=== PATIENT | female | born 1955 | race Asian ===

== ENCOUNTER 2017-09-09 14:57 | Emergency (ER) | payer SELFPAY ==
--- NOTE | 2017-09-09 16:07 | ER ---
Nurse's Notes [facility] Name: Erica Marrero Age: 61 yrs Sex: Female : 1955 Arrival Date: 09/09/2017 Time: 15:00 Bed 25 Private MD: Diagnosis: Hyperglycemia, unspecified Presentation: 09/09 15:21 Presenting complaint: Patient states: "My sugar was 413 at home. I didn't have any aj needles for my insulin so I came up to the ER." Patient is awake and alert. Transition of care: patient was not received from another setting of care. Onset of symptoms was September 09, 2017. Risk Assessment: Do you want to hurt yourself or someone else? Patient reports no desire to harm self or others. Care prior to arrival: None. 15:21 Method Of Arrival: Ambulatory aj 15:21 Acuity: JAYLON 3 aj 16:35 Initial Sepsis Screen: Does the patient meet any 2 criteria? No. Patient's initial aj1 sepsis screen is negative. Does the patient have a suspected source of infection? No. Patient's initial sepsis screen is negative. Triage Assessment: 15:24 General: Appears in no apparent distress. comfortable, Behavior is calm, cooperative, aj appropriate for age. Pain: Denies pain. Neuro: Level of Consciousness is awake, alert, obeys commands, Oriented to person, place, time, situation, Appropriate for age. Respiratory: Airway is patent Respiratory effort is even, unlabored, Respiratory pattern is regular, symmetrical. Derm: Skin is intact, is healthy with good turgor, Skin is pink, warm \\T\\ dry. normal. Historical: - Allergies: 15:24 Dairy; aj 15:24 Eggs; aj 15:24 Iodine; aj 15:24 PORK/PORCINE PRODUCT DERIVATIVES; aj 15:24 rice; aj 15:24 SEAFOOD; aj - Home Meds: 15:24 glipizide 5 mg Oral tab 1 tab once daily [Active]; Glipizide 5mg BID, Metformin 1000mg aj BID, Levothyroxine 50mcg Daily, Simvastatin 40mg QHS, Bactrim DS [Active]; levothyroxine 100 mcg tab 1 tab once daily [Active]; metformin 1,000 mg Oral tr24 1 tab once daily [Active]; levothyroxine oral [Active]; metformin 1,000 mg Oral tr24 2 tabs once daily [Active]; simvastatin 40 mg Oral tab 0.5 tab 2 times per day [Active]; Prozac Oral [Active]; Unknown bipolar med [Active]; - PMHx: 15:24 Bipolar disorder; COPD; Depression; Diabetes - NIDDM; High Cholesterol; Thyroid aj problem; Insulin; - PSHx: 15:24 Hysterectomy; Tubal ligation; aj - Immunization history:: Adult Immunizations up to date. - Social history:: Smoking status: Patient/guardian denies using tobacco. - Ebola Screening: : Patient negative for fever greater than or equal to 101.5 degrees Fahrenheit, and additional compatible Ebola Virus Disease symptoms Patient denies exposure to infectious person Patient denies travel to an Ebola-affected area in the 21 days before illness onset No symptoms or risks identified at this time. Screenin:33 Abuse screen: Denies threats or abuse. Denies injuries from another. Nutritional aj1 screening: No deficits noted. Tuberculosis screening: No symptoms or risk factors identified. 16:36 Fall Risk None identified. aj1 Assessment: 16:33 General: Appears in no apparent distress. comfortable, Behavior is calm, cooperative, aj1 appropriate for age. Pain: Denies pain. Neuro: Level of Consciousness is awake, alert, obeys commands, Oriented to person, place, time, situation. Cardiovascular: Patient's skin is warm and dry. Respiratory: Airway is patent Respiratory effort is even, unlabored, Respiratory pattern is regular, symmetrical. GI: No signs and/or symptoms were reported involving the gastrointestinal system. : No signs and/or symptoms were reported regarding the genitourinary system. EENT: No signs and/or symptoms were reported regarding the EENT system. Derm: No signs and/or symptoms reported regarding the dermatologic system. Skin is pink, warm \\T\\ dry. normal. Musculoskeletal: No signs and/or symptoms reported regarding the musculoskeletal system. Circulation, motion, and sensation intact. Vital Signs: 15:24 BP 127 / 80; Pulse 92; Resp 18; Temp 97.6; Pulse Ox 98% on R/A; Weight 72.57 kg; Height aj 5 ft. 3 in. (160.02 cm); 16:33 BP 122 / 75; Pulse 88; Resp 18; Pulse Ox 99% ; aj1 15:24 Body Mass Index 28.34 (72.57 kg, 160.02 cm) aj ED Course: 15:00 Patient arrived in ED. sb2 15:23 Triage completed. aj 15:24 Arm band placed on left wrist. Patient placed in waiting room, Patient notified of wait aj time. 16:03 Momo Ayala MD is Attending Physician. 16:33 Rocio Montes, RN is Primary Nurse. aj1 16:33 Patient has correct armband on for positive identification. Bed in low position. Call aj1 light in reach. Side rails up X 1. 16:33 No provider procedures requiring assistance completed. Patient did not have IV access aj1 during this emergency room visit. Administered Medications: No medications were administered Point of Care Testing: Blood Glucose: 15:24 Blood Glucose: 315 mg/dL; aj Ranges: Outcome: 16:07 Discharge ordered by . 16:33 Discharged to home ambulatory. aj1 16:33 Condition: good 16:33 Discharge instructions given to patient, Instructed on discharge instructions, follow up and referral plans. medication usage, Demonstrated understanding of instructions, follow-up care, medications, Prescriptions given X 1. 16:36 Patient left the ED. aj1 Signatures: Rocio Montes, RN RN aj1 Neris Betancur RN RN aj Momo Ayala MD MD Nanci Villa sb2
--- NOTE | 2017-09-09 16:07 | EDPHYS ---
Physician Documentation [facility] Name: Erica Marrero Age: 61 yrs Sex: Female : 1955 Arrival Date: 09/09/2017 Time: 15:00 Bed 25 Private MD: ED Physician Momo Ayala HPI: 09/09 16:26 This 61 yrs old Female presents to ER via Ambulatory with complaints of High gs Blood Sugar. 16:26 The patient or guardian reports hyperglycemia. Onset: The symptoms/episode gs began/occurred 1 week(s) ago, and became persistent out of metformin. Associated signs and symptoms: Pertinent negatives: nausea, seizure activity, urinary incontinence, vomiting. Current symptoms: In the emergency department the patient's symptoms have improved, mildly. The patient has experienced similar episodes in the past, several times. Historical: - Allergies: 15:24 Dairy; aj 15:24 Eggs; aj 15:24 Iodine; aj 15:24 PORK/PORCINE PR[employer] DERIVATIVES; aj 15:24 rice; aj 15:24 SEAFOOD; aj - Home Meds: 15:24 glipizide 5 mg Oral tab 1 tab once daily [Active]; Glipizide 5mg BID, Metformin 1000mg aj BID, Levothyroxine 50mcg Daily, Simvastatin 40mg QHS, Bactrim DS [Active]; levothyroxine 100 mcg tab 1 tab once daily [Active]; metformin 1,000 mg Oral tr24 1 tab once daily [Active]; levothyroxine oral [Active]; metformin 1,000 mg Oral tr24 2 tabs once daily [Active]; simvastatin 40 mg Oral tab 0.5 tab 2 times per day [Active]; Prozac Oral [Active]; Unknown bipolar med [Active]; - PMHx: 15:24 Bipolar disorder; COPD; Depression; Diabetes - NIDDM; High Cholesterol; Thyroid aj problem; Insulin; - PSHx: 15:24 Hysterectomy; Tubal ligation; aj - Immunization history:: Adult Immunizations up to date. - Social history:: Smoking status: Patient/guardian denies using tobacco. - Ebola Screening: : Patient negative for fever greater than or equal to 101.5 degrees Fahrenheit, and additional compatible Ebola Virus Disease symptoms Patient denies exposure to infectious person Patient denies travel to an Ebola-affected area in the 21 days before illness onset No symptoms or risks identified at this time. ROS: 16:26 Constitutional: Negative for fever. gs 16:26 Abdomen/GI: Negative for nausea and vomiting, diarrhea. 16:26 All other systems are negative. Exam: 16:26 Head/Face: Normocephalic, atraumatic. Eyes: Pupils equal round and reactive to light, gs extra-ocular motions intact. Lids and lashes normal. Conjunctiva and sclera are non-icteric and not injected. Cornea within normal limits. Periorbital areas with no swelling, redness, or edema. ENT: Nares patent. No nasal discharge, no septal abnormalities noted. Tympanic membranes are normal and external auditory canals are clear. Oropharynx with no redness, swelling, or masses, exudates, or evidence of obstruction, uvula midline. Mucous membranes moist. Neck: Trachea midline, no thyromegaly or masses palpated, and no cervical lymphadenopathy. Supple, full range of motion without nuchal rigidity, or vertebral point tenderness. No Meningismus. Chest/axilla: Normal chest wall appearance and motion. Nontender with no deformity. No lesions are appreciated. Cardiovascular: Regular rate and rhythm with a normal S1 and S2. No gallops, murmurs, or rubs. Normal PMI, no JVD. No pulse deficits. Respiratory: Lungs have equal breath sounds bilaterally, clear to auscultation and percussion. No rales, rhonchi or wheezes noted. No increased work of breathing, no retractions or nasal flaring. Abdomen/GI: Soft, non-tender, with normal bowel sounds. No distension or tympany. No guarding or rebound. No evidence of tenderness throughout. Back: No spinal tenderness. No costovertebral tenderness. Full range of motion. Skin: Warm, dry with normal turgor. Normal color with no rashes, no lesions, and no evidence of cellulitis. MS/ Extremity: Pulses equal, no cyanosis. Neurovascular intact. Full, normal range of motion. Neuro: Awake and alert, GCS 15, oriented to person, place, time, and situation. Cranial nerves II-XII grossly intact. Motor strength 5/5 in all extremities. Sensory grossly intact. Cerebellar exam normal. Normal gait. 16:26 Constitutional: The patient appears alert, awake. Vital Signs: 15:24 BP 127 / 80; Pulse 92; Resp 18; Temp 97.6; Pulse Ox 98% on R/A; Weight 72.57 kg; Height aj 5 ft. 3 in. (160.02 cm); 16:33 BP 122 / 75; Pulse 88; Resp 18; Pulse Ox 99% ; aj1 15:24 Body Mass Index 28.34 (72.57 kg, 160.02 cm) aj MDM: 16:06 Patient medically screened. 16:26 Data reviewed: vital signs, nurses notes. Response to treatment: the patient's symptoms gs have mildly improved after treatment, and as a result, I will discharge patient. Administered Medications: No medications were administered Point of Care Testing: Blood Glucose: 15:24 Blood Glucose: 315 mg/dL; aj Ranges: Critical Glucose Levels:Adult <50 mg/dl or >400 mg/dl <40 mg/dl or >180 mg/dl Disposition: 09/09/17 16:07 Discharged to Home. Impression: Hyperglycemia, unspecified. - Condition is Stable. - Discharge Instructions: Hyperglycemia. - Prescriptions for Metformin 1,000 mg Oral Tablet - take 1 tablet by ORAL route every 12 hours with morning and evening meals; 60 tablet. - Medication Reconciliation Form, Thank You Letter, Antibiotic Education, Prescription Opioid Use form. - Follow up: Private Physician; When: 2 - 3 days; Reason: Re-evaluation by your physician. Signatures: Rocio Montes RN RN aj1 Neris Betancur RN RN aj Momo Ayala MD MD Corrections: (The following items were deleted from the chart) 16:36 16:07 09/09/2017 16:07 Discharged to Home. Impression: Hyperglycemia, unspecified. aj1 Condition is Stable. Forms are Medication Reconciliation Form, Thank You Letter, Antibiotic Education, Prescription Opioid Use. Follow up: Private Physician; When: 2 - 3 days; Reason: Re-evaluation by your physician. gs
[2017-09-09 16:41] VITALS: TEMP 97.6
[2017-09-09 16:43] VITALS: BP 122/75; O2SAT 99
== END 2017-09-09 16:36 | disposition home or self-care (01) ==
LOC: ER 14:57
DX: E11.65 Type 2 diabetes mellitus with hyperglycemia (principal); E78.00 Pure hypercholesterolemia, unspecified; F32.9 Major depressive disorder, single episode, unspecified; J44.9 Chronic obstructive pulmonary disease, unspecified; Z79.4 Long term (current) use of insulin; Z91.011 Allergy to milk products; Z91.012 Allergy to eggs; Z91.013 Allergy to seafood; Z91.018 Allergy to other foods
CPT/HCPCS: 82962; 99282

== ENCOUNTER 2017-12-20 21:14 | Emergency (ER) | payer SELFPAY ==
[2017-12-20 21:56] LABS: Absolute Lymphocytes (CBC) 2.4 K/uL (0.7-4.9); Absolute Monocytes 0.5 K/uL (0.1-1.3); Absolute Neutrophil 2.4 K/uL (1.8-8.0); Basophils % 0.6 % (0-1.3); Eosinophils % 2.4 % (0-4.4); Hematocrit 38.6 % (36.0-45.0); Lymphocytes % 44.2 % (15.3-44.8); MCH 32.2 pg (27.0-35.0); MCV 94.5 fL (80-100); MPV 7.8 fL (7.6-11.3); Monocytes % 8.4 % (3.3-12.3); RBC Red Blood Cell Count 4.09 M/uL (3.86-4.86)
[2017-12-20 21:59] LABS: Protime INR 0.88
[2017-12-20 22:17] LABS: ALT/SGPT 20 U/L (12-78); AST/SGOT 17 U/L (15-37); Albumin 4.1 g/dL (3.4-5.0); Alkaline Phosphatase 66 U/L (45-117); BUN Blood Urea Nitrogen 12 mg/dL (7-18); Bicarbonate 28 mmol/L (21-32); Bilirubin Direct 0.1 mg/dL (0-0.2); Bilirubin Total 0.2 mg/dL (0.2-1.0); CKMB Creatine Kinase MB < 1.0 ng/mL (0.3-3.6); Creatine Phosphokinase 43 U/L (26-192); Glucose Level 92 mg/dL (74-106); Magnesium 2.2 mg/dL (1.8-2.4); NT PRO-BNP 59 pg/mL (<125); Potassium 3.9 mmol/L (3.5-5.1); Protein, Total 7.9 g/dL (6.4-8.2); Sodium Level 141 mmol/L (136-145); Troponin (Emerg Dept Use Only) < 0.02 ng/mL (0.0-0.045)
--- NOTE | 2017-12-20 23:07 | RAD REPORT ---
EXAM DESCRIPTION: RAD - Chest Single View - 12/20/2017 9:46 pm CLINICAL HISTORY: CHEST PAIN Chest pain. COMPARISON: Chest Single View dated 04/26/2016; Chest Single View dated 10/14/2015; CHEST SINGLE VIEW d ated 10/14/2014; CHEST SINGLE VIEW dated 08/04/2012 FINDINGS: Portable technique limits examination quality. The lungs are grossly clear. The heart is normal in size. No displaced fractures. IMPRESSION: No acute intrathoracic process suspected.
--- NOTE | 2017-12-21 00:57 | ER ---
Nurse's Notes [facility] Name: Erica Marrero Age: 62 yrs Sex: Female : 1955 Arrival Date: 12/20/2017 Time: 21:15 Bed 18 Private MD: Diagnosis: Chest pain, unspecified Presentation: 12/20 21:42 Presenting complaint: Patient states: "I am having chest pain and a little shortness of jd3 breath. I was seen by my doctor and they said to come to the ER if it keeps hurting.". Transition of care: patient was not received from another setting of care. Onset of symptoms was December 20, 2017. Risk Assessment: Do you want to hurt yourself or someone else? Patient reports no desire to harm self or others. Initial Sepsis Screen: Does the patient meet any 2 criteria? No. Patient's initial sepsis screen is negative. Does the patient have a suspected source of infection? No. Patient's initial sepsis screen is negative. Care prior to arrival: None. 21:42 Method Of Arrival: Wheelchair jd3 21:42 Acuity: JAYLON 3 jd3 Historical: - Allergies: 21:47 Dairy; jd3 21:47 Eggs; jd3 21:47 Iodine; jd3 21:47 PORK/PORCINE PRODUCT DERIVATIVES; jd3 21:47 rice; jd3 21:47 SEAFOOD; jd3 - Home Meds: 21:47 glipizide 5 mg Oral tab 1 tab once daily [Active]; levothyroxine 100 mcg tab 1 tab once jd3 daily [Active]; simvastatin 40 mg Oral tab 0.5 tab 2 times per day [Active]; Prozac Oral [Active]; Unknown bipolar med [Active]; metformin 1,000 mg Oral tr24 2 tabs once daily [Active]; - PMHx: 21:47 Bipolar disorder; COPD; Depression; Diabetes - NIDDM; High Cholesterol; Thyroid problem;jd3 - PSHx: 21:47 Hysterectomy; Tubal ligation; jd3 - Immunization history:: Adult Immunizations not up to date. - Social history:: Smoking status: Patient/guardian denies using tobacco. - Ebola Screening: : Patient negative for fever greater than or equal to 101.5 degrees Fahrenheit, and additional compatible Ebola Virus Disease symptoms. Screenin:49 Abuse screen: Denies threats or abuse. Nutritional screening: No deficits noted. jd3 Tuberculosis screening: No symptoms or risk factors identified. Fall Risk IV access (20 points). Ambulatory Aid- None/Bed Rest/Nurse Assist (0 pts). Gait- Normal/Bed Rest/Wheelchair (0 pts) Mental Status- Oriented to own ability (0 pts). Total Albright Fall Scale indicates No Risk (0-24 pts). Assessment: 21:48 General: Appears in no apparent distress. uncomfortable, Behavior is calm, cooperative, jd3 appropriate for age. Pain: Complains of pain in chest Pain does not radiate. Quality of pain is described as aching, Pain began gradually. Neuro: Level of Consciousness is awake, alert, obeys commands, Oriented to person, place, time, situation, Appropriate for age. Cardiovascular: Heart tones S1 S2 present Capillary refill < 3 seconds Patient's skin is warm and dry. Rhythm is regular. Respiratory: Reports shortness of breath Airway is patent Respiratory effort is even, unlabored, Respiratory pattern is regular, symmetrical, Breath sounds are clear. GI: No signs and/or symptoms were reported involving the gastrointestinal system. : No signs and/or symptoms were reported regarding the genitourinary system. EENT: No signs and/or symptoms were reported regarding the EENT system. Derm: Skin is intact, Skin is dry, Skin is normal, Skin temperature is warm. Musculoskeletal: Circulation, motion, and sensation intact. Range of motion: intact in all extremities. 22:17 Reassessment: Patient appears in no apparent distress at this time. No changes from jd3 previously documented assessment. Patient and/or family updated on plan of care and expected duration. Pain level reassessed. Patient is alert, oriented x 3, equal unlabored respirations, skin warm/dry/pink. 12 00:19 Reassessment: Patient appears in no apparent distress at this time. No changes from jd3 previously documented assessment. Patient and/or family updated on plan of care and expected duration. Pain level reassessed. Patient is alert, oriented x 3, equal unlabored respirations, skin warm/dry/pink. 00:49 Reassessment: Patient appears in no apparent distress at this time. Patient and/or jd3 family updated on plan of care and expected duration. Pain level reassessed. Patient is alert, oriented x 3, equal unlabored respirations, skin warm/dry/pink. 01:29 Reassessment: Patient appears in no apparent distress at this time. Patient and/or jd3 family updated on plan of care and expected duration. Pain level reassessed. Patient is alert, oriented x 3, equal unlabored respirations, skin warm/dry/pink. Vital Signs: 12/20 21:47 BP 116 / 75; Pulse 72; Resp 16 S; Temp 98.0(O); Pulse Ox 95% on R/A; Weight 74.84 kg jd3 (R); Height 5 ft. 4 in. (162.56 cm) (R); Pain 5/10; 22:17 BP 129 / 75; Pulse 63; Resp 16 S; Pulse Ox 97% on R/A; jd3 23:05 BP 113 / 68; Pulse 65; Resp 16; Pulse Ox 97% on R/A; mt 12/21 00:09 BP 123 / 75; Pulse 72; Resp 16; Pulse Ox 99% on R/A; mt 00:49 BP 114 / 69; Pulse 67; Resp 16 S; Pulse Ox 96% on R/A; jd3 12/20 21:47 Body Mass Index 28.32 (74.84 kg, 162.56 cm) jd3 ED Course: 12/20 21:15 Patient arrived in ED. ds1 21:21 [facility] snw 21:21 Guanaco Lindsey MD is Attending Physician. snw 21:28 EKG done, by ED staff, reviewed by Guanaco Lindsey MD. nh 21:34 Inserted saline lock: 20 gauge in right antecubital area, using aseptic technique. nh Blood collected. 21:42 Anthony Anderson, LYSSA is Primary Nurse. jd3 21:43 Triage completed. jd3 21:45 X-ray completed. Portable x-ray completed in exam room. Patient tolerated procedure bb2 well. 21:46 XRAY Chest (1 view) In Process Unspecified. EDMS 21:48 Arm band placed on. jd3 21:50 Patient maintains SpO2 saturation greater than 95% on room air. jd3 21:50 Patient has correct armband on for positive identification. library monitor on. Pulse jd3 ox on. NIBP on. 12/21 01:28 No provider procedures requiring assistance completed. IV discontinued, intact, jd3 bleeding controlled, No redness/swelling at site. Pressure dressing applied. Administered Medications: No medications were administered Outcome: 00:56 Discharge ordered by . blake 01:29 Discharged to home ambulatory, with family. jd3 01:29 Condition: stable 01:29 Discharge instructions given to patient, Instructed on discharge instructions, follow up and referral plans. Demonstrated understanding of instructions, follow-up care. 01:30 Patient left the ED. jd3 Signatures: Dispatcher [employer] EDMA Radha Johnston, BARON-C WEIR FISHER-CsnSherry Branch dsRose Tirado mt, Jonathon, RN RN jd3 [place]app[place], Dayna bb2 Corrections: (The following items were deleted from the chart) 12/20 22:28 21:48 Respiratory: Airway is patent Respiratory effort is even, unlabored, Respiratory jd3 pattern is regular, symmetrical, Breath sounds are clear jd3
--- NOTE | 2017-12-21 00:57 | EDPHYS ---
Physician Documentation [facility] Name: Erica Marrero Age: 62 yrs Sex: Female : 1955 Arrival Date: 12/20/2017 Time: 21:15 Bed 18 Private MD: ED Physician Guanaco Lindsey HPI: 12/20 23:00 This 62 yrs old Female presents to ER via Wheelchair with complaints of Chest snw Tightness, Breathing Difficulty. 23:00 Onset: The symptoms/episode began/occurred gradually, 4 day(s) ago, and became snw persistent. Associated signs and symptoms: Pertinent positives: chest pain, cough, shortness of breath. It is unknown whether or not the patient has had similar symptoms in the past. The patient has been recently seen by a physician: the patient's primary care provider, earlier today, with similar presenting complaints. Historical: - Allergies: 21:47 Dairy; jd3 21:47 Eggs; jd3 21:47 Iodine; jd3 21:47 PORK/[employer] DERIV[employer]IVES; jd3 21:47 rice; jd3 21:47 SEAFOOD; jd3 - Home Meds: 21:47 glipizide 5 mg Oral tab 1 tab once daily [Active]; levothyroxine 100 mcg tab 1 tab once jd3 daily [Active]; simvastatin 40 mg Oral tab 0.5 tab 2 times per day [Active]; Prozac Oral [Active]; Unknown bipolar med [Active]; metformin 1,000 mg Oral tr24 2 tabs once daily [Active]; - PMHx: 21:47 Bipolar disorder; COPD; Depression; Diabetes - NIDDM; High Cholesterol; Thyroid problem;jd3 - PSHx: 21:47 Hysterectomy; Tubal ligation; jd3 - Immunization history:: Adult Immunizations not up to date. - Social history:: Smoking status: Patient/guardian denies using tobacco. - Ebola Screening: : Patient negative for fever greater than or equal to 101.5 degrees Fahrenheit, and additional compatible Ebola Virus Disease symptoms. ROS: 22:59 Constitutional: Negative for fever, chills, and weight loss, Eyes: Negative for injury, snw pain, redness, and discharge, ENT: Negative for injury, pain, and discharge, Neck: Negative for injury, pain, and swelling, Abdomen/GI: Negative for abdominal pain, nausea, vomiting, diarrhea, and constipation, : Negative for injury, bleeding, discharge, and swelling, MS/Extremity: Negative for injury and deformity, Skin: Negative for injury, rash, and discoloration, Neuro: Negative for headache, weakness, numbness, tingling, and seizure. 22:59 Cardiovascular: Positive for chest pain. 22:59 Respiratory: Positive for shortness of breath, with cough. Exam: 22:58 Constitutional: This is a well developed, well nourished patient who is awake, alert, snw and in no acute distress. Head/Face: Normocephalic, atraumatic. Eyes: Pupils equal round and reactive to light, extra-ocular motions intact. Lids and lashes normal. Conjunctiva and sclera are non-icteric and not injected. Cornea within normal limits. Periorbital areas with no swelling, redness, or edema. ENT: Nares patent. No nasal discharge, no septal abnormalities noted. Tympanic membranes are normal and external auditory canals are clear. Oropharynx with no redness, swelling, or masses, exudates, or evidence of obstruction, uvula midline. Mucous membranes moist. Neck: Trachea midline, no thyromegaly or masses palpated, and no cervical lymphadenopathy. Supple, full range of motion without nuchal rigidity, or vertebral point tenderness. No Meningismus. Chest/axilla: Normal chest wall appearance and motion. Nontender with no deformity. No lesions are appreciated. Respiratory: Lungs have equal breath sounds bilaterally, clear to auscultation and percussion. No rales, rhonchi or wheezes noted. No increased work of breathing, no retractions or nasal flaring. Abdomen/GI: Soft, non-tender, with normal bowel sounds. No distension or tympany. No guarding or rebound. No evidence of tenderness throughout. Back: No spinal tenderness. No costovertebral tenderness. Full range of motion. Skin: Warm, dry with normal turgor. Normal color with no rashes, no lesions, and no evidence of cellulitis. MS/ Extremity: Pulses equal, no cyanosis. Neurovascular intact. Full, normal range of motion. Neuro: Awake and alert, GCS 15, oriented to person, place, time, and situation. Cranial nerves II-XII grossly intact. Motor strength 5/5 in all extremities. Sensory grossly intact. Cerebellar exam normal. Normal gait. 22:58 Cardiovascular: Rate: normal, Rhythm: regular, Heart sounds: normal. Vital Signs: 21:47 BP 116 / 75; Pulse 72; Resp 16 S; Temp 98.0(O); Pulse Ox 95% on R/A; Weight 74.84 kg jd3 (R); Height 5 ft. 4 in. (162.56 cm) (R); Pain 5/10; 22:17 BP 129 / 75; Pulse 63; Resp 16 S; Pulse Ox 97% on R/A; jd3 23:05 BP 113 / 68; Pulse 65; Resp 16; Pulse Ox 97% on R/A; mt 12/21 00:09 BP 123 / 75; Pulse 72; Resp 16; Pulse Ox 99% on R/A; mt 00:49 BP 114 / 69; Pulse 67; Resp 16 S; Pulse Ox 96% on R/A; jd3 12/20 21:47 Body Mass Index 28.32 (74.84 kg, 162.56 cm) jd3 MDM: 12/20 21:21 Patient medically screened. snw 12/21 00:57 Data reviewed: vital signs, nurses notes. Data interpreted: Pulse oximetry: on room air snw is 96 %. Interpretation: acceptable. Counseling: I had a detailed discussion with the patient and/or guardian regarding: the historical points, exam findings, and any diagnostic results supporting the discharge/admit diagnosis, lab results, radiology results, the need for outpatient follow up, to return to the emergency department if symptoms worsen or persist or if there are any questions or concerns that arise at home. Special discussion: Based on the patient's history, exam, and Dx evaluation, there is no indication for emergent intervention or inpatient Tx. It is understood by the patient/guardian that if the Sx's persist or worsen they need to return immediately for re-evaluation. Based on the history and exam findings, there is no indication for further emergent testing or inpatient evaluation. I discussed with the patient/guardian the need to see the farrowing manager for further evaluation of the symptoms. I discussed with the patient/guardian the need to see the primary care provider for further evaluation of the symptoms. 12/20 21:28 Order name: Basic Metabolic Panel; Complete Time: 22:37 snw 12/20 21:28 Order name: CBC with Diff; Complete Time: 22:37 snw 09/11 21:28 Order name: Ckmb; Complete Time: 22:37 snw 12/20 21:28 Order name: CPK; Complete Time: :37 w 12/20 21:28 Order name: LFT's; Complete Time: 22:37 12/20 21:28 Order name: Magnesium; Complete Time: 22:37 w 12/20 21:28 Order name: NT PRO-BNP; Complete Time: 22:37 12/20 21:28 Order name: PT-INR; Complete Time: 22:37 12/20 21:28 Order name: Ptt, Activated; Complete Time: :37 w 12/20 21:28 Order name: Troponin (emerg Dept Use Only); Complete Time: :37 w 12/20 21:28 Order name: XRAY Chest (1 view); Complete Time: 23:09 12/20 21:28 Order name: EKG; Complete Time: 21:29 12/20 23:49 Order name: Troponin (emerg Dept Use Only); Complete Time: 00:26 [facility] 12/21 00:34 Order name: EKG; Complete Time: 00:34 w 12/20 21:28 Order name: Cardiac monitoring; Complete Time: 21:29 w 12/20 21:28 Order name: EKG - Nurse/Tech; Complete Time: 21:29 12/20 21:28 Order name: IV Saline Lock; Complete Time: 21:34 w 12/20 21:28 Order name: Labs collected and sent; Complete Time: :34 12/20 21:28 Order name: O2 Per Protocol; Complete Time: 21:29 w 12/20 21:28 Order name: O2 Sat Monitoring; Complete Time: 21:12/20 22:38 Order name: Repeat Cardiac Enzymes at: 1330; Complete Time: 23:49 snw Administered Medications: No medications were administered Disposition: 04:23 Co-signature as Attending Physician, Guanaco Lindsey MD. pkl Disposition: 12/21/17 00:56 Discharged to Home. Impression: Chest pain, unspecified. - Condition is Stable. - Discharge Instructions: Acute Bronchitis, Adult, Nonspecific Chest Pain, Aspirin and Your Heart. - Medication Reconciliation Form, Thank You Letter, Antibiotic Education, Prescription Opioid Use form. - Follow up: Private Physician; When: 1 - 2 days; Reason: Recheck today's complaints, Continuance of care, Re-evaluation by your physician. Follow up: Emergency Department; When: As needed; Reason: Worsening of condition. Signatures: Dispatcher [employer] EDGuanaco Saavedra MD MD pkl Therrien, Shelly, SENIOR CONTROLS TECHNICIAN-C SENIOR CONTROLS TECHNICIAN-Anthony Ramirez RN RN jd3 Corrections: (The following items were deleted from the chart) 01:30 00:56 12/21/2017 00:56 Discharged to Home. Impression: Chest pain, unspecified. jd3 Condition is Stable. Forms are Medication Reconciliation Form, Thank You Letter, Antibiotic Education, Prescription Opioid Use. Follow up: Private Physician; When: 1 - 2 days; Reason: Recheck today's complaints, Continuance of care, Re-evaluation by your physician. Follow up: Emergency Department; When: As needed; Reason: Worsening of condition. snw
[2017-12-21 01:40] VITALS: TEMP 98
[2017-12-21 01:46] VITALS: BP 114/69; O2SAT 96
--- NOTE | 2017-12-21 12:10 | EKG ---
Test Date: 2017-12-21 Test Time: 01:06:35 Brim Buster: SARAH MEASUREMENT RESULTS: Intervals: Rate: 69 NC: 150 QRSD: 80 QT: 418 QTc: 447 [place]: P: 59 NC: 150 QRS: 9 T: 57 INTERPRETIVE STATEMENTS: Normal sinus rhythm Normal ECG Compared to ECG 12/20/2017 21:24:10 No significant changes Electronically Signed On 12-21-17 12:08:36 CDT by Denys Trammell
--- NOTE | 2017-12-21 12:11 | EKG ---
Test Date: 2017-12-20 Test Time: 21:24:10 Prototype Carpenter: DELIA MEASUREMENT RESULTS: Intervals: Rate: 75 CT: 150 QRSD: 78 QT: 358 QTc: 399 Tully: P: 68 CT: 150 QRS: 21 T: 67 INTERPRETIVE STATEMENTS: Normal sinus rhythm Normal ECG Compared to ECG 11/11/2016 09:20:34 T-wave abnormality no longer present Electronically Signed On 12-21-17 12:08:47 CDT by Denys Trammell
== END 2017-12-21 01:30 | disposition home or self-care (01) ==
LOC: ER 21:14
DX: R07.9 Chest pain, unspecified (principal); E11.9 Type 2 diabetes mellitus without complications; E78.00 Pure hypercholesterolemia, unspecified; F31.9 Bipolar disorder, unspecified; F32.9 Major depressive disorder, single episode, unspecified; J44.9 Chronic obstructive pulmonary disease, unspecified; Z91.011 Allergy to milk products; Z91.012 Allergy to eggs; Z91.013 Allergy to seafood; Z91.018 Allergy to other foods; Z91.048 Other nonmedicinal substance allergy status
CPT/HCPCS: 36415; 71045; 80048; 80076; 82550; 82553; 83735; 83880; 84484; 85025; 85610; 85730; 93005; 99285

== ENCOUNTER → 2023-05-15 | Emergency (ER) | payer OTHER ==
--- OUTSIDE RECORDS SUMMARY | 2023-05-15 08:12 | XMS REPORT | Continuity of Care Document ---
Author Name Unknown Address [address] [facility] [address] [place] [address] [facility] Address [address] [place] [address] Care Team Providers Care Unit Technician Name Role Phone [place] [facility], [facility] Primary Care Physician [phone] Kristal Mohan Attending Clinician Unavailable Annetta Green Attending Clinician Unavailab le Payers Payer Name Policy Type Policy Number Effective Date Expirati on Date Source Problems Condition Name Condition Details Condition Category Status Onset Date Resolution Date Last Treatment Date Treating Clinician Comments Source Problem No known problems ASSERTION two.42.s[employer] (Sadi) Allergies, Adverse Reactions, Alerts Allergy Name Allergy Type Status Severity Reaction(s) Onset Date Inactive Date Treating Clinician Comments Source Iodine Strong - Oral Propensi ty to adverse reaction to drug Active 11-12 00:00: 00 Iodine Propensi ty to adverse reaction to drug Active 10-10 00:00: 00 Social History Smoking Status Start Date Stop Date Source Unknown if ever smoked [facility] ([facility]) Medications Ordered Medication Name Filled Medication Name Start Date Stop Date Current Medication? Ordering Clinician Indication Dosage Frequency Signature (SIG) Comments Components Source Take 1 tablet daily 11-18 00:00: 00 No 300 Take 1 daily 11-16 00:00: 00 No 4 TAKE 1 TABLET TWICE DAILY. 11-12 00:00: 00 No 1000 Take 2 tablets by mouth daily 11-12 00:00: 00 No 100 TAKE 1 TABLET EVERY 8 HOURS NEEDED. 11-12 00:00: 00 No 800 TAKE 1 TABLET TWICE DAILY. 11-12 00:00: 00 No 1000 Take 2 tablets by mouth daily 11-12 00:00: 00 No 100 TAKE 1 TABLET EVERY 8 HOURS NEEDED. 11-12 00:00: 00 No 800 metformin 1,000 mg tablet 2017-04 00:00: 00 No 1mg metformin 1,000 mg tablet 2017-04 00:00: 00 No 1mg levofloxaci n 500 mg tablet 2017-04 00:00: 00 No 1mg amoxicillin 500 mg tablet 01-03 00:00: 00 No 1mg amoxicillin 500 mg tablet 01-03 00:00: 00 No 1mg prednisone 10 mg tablet 12-20 00:00: 00 No 1mg ipratropium bromide 0.02 % solution for inhalation 12-20 00:00: 00 No 25% prednisone 10 mg tablet 12-20 00:00: 00 No 1mg ipratropium bromide 0.02 % solution for inhalation 12-20 00:00: 00 No 25% Vitamin D2 50,000 unit capsule 10-26 00:00: 00 No 1unit Vitamin D2 1,250 mcg (50,000 unit) capsule 10-26 00:00: 00 No 1(50,00 0 unit) lisinopril 2.5 mg tablet 10-25 00:00: 00 No 1mg glimepiride 2 mg tablet 10-25 00:00: 00 No 1mg metformin 1,000 mg tablet 10-25 00:00: 00 No 1mg simvastatin 20 mg tablet 10-25 00:00: 00 No 1mg metoclopram zelda 5 mg tablet 10-25 00:00: 00 No 1mg levothyroxi ne 50 mcg tablet 10-25 00:00: 00 No 1mcg lisinopril 2.5 mg tablet 10-25 00:00: 00 No 1mg glimepiride 2 mg tablet 10-25 00:00: 00 No 1mg metformin 1,000 mg tablet 10-25 00:00: 00 No 1mg simvastatin 20 mg tablet 10-25 00:00: 00 No 1mg metoclopram zelda 5 mg tablet 10-25 00:00: 00 No 1mg levothyroxi ne 50 mcg tablet 10-25 00:00: 00 No 1mcg ferrous sulfate 324 mg (65 mg iron) tablet,madonna yed release 10-25 00:00: 00 No 1(65 mg iron) levothyroxi ne 50 mcg tablet 07-12 00:00: 00 No 1mcg glimepiride 2 mg tablet 07-12 00:00: 00 No 1mg lisinopril 2.5 mg tablet 07-12 00:00: 00 No 1mg metformin 1,000 mg tablet 07-12 00:00: 00 No 1mg Bactrim DS 800 mg-160 mg tablet 07-12 00:00: 00 No 1mg simvastatin 20 mg tablet 07-12 00:00: 00 No 1mg ferrous sulfate 324 mg (65 mg iron) tablet,madonna yed release 07-12 00:00: 00 No 1(65 mg iron) levothyroxi ne 50 mcg tablet 07-12 00:00: 00 No 1mcg glimepiride 2 mg tablet 07-12 00:00: 00 No 1mg lisinopril 2.5 mg tablet 07-12 00:00: 00 No 1mg metformin 1,000 mg tablet 07-12 00:00: 00 No 1mg Bactrim DS 800 mg-160 mg tablet 07-12 00:00: 00 No 1mg simvastatin 20 mg tablet 07-12 00:00: 00 No 1mg Novolin R Regular U-100 Insulin 100 unit/mL injection solution 06-10 00:00: 00 No 1unit/m L glipizide 10 mg tablet 06-10 00:00: 00 No 1mg glimepiride 2 mg tablet 06-10 00:00: 00 No 1mg metformin 1,000 mg tablet 06-10 00:00: 00 No 1mg metformin 1,000 mg tablet 06-10 00:00: 00 No 1mg Novolin R Regular U-100 Insulin 100 unit/mL injection solution 06-10 00:00: 00 No 1unit/m L glipizide 10 mg tablet 06-10 00:00: 00 No 1mg glimepiride 2 mg tablet 06-10 00:00: 00 No 1mg metformin 1,000 mg tablet 06-10 00:00: 00 No 1mg metformin 1,000 mg tablet 06-10 00:00: 00 No 1mg lisinopril 2.5 mg tablet 05-13 00:00: 00 No 1mg lisinopril 2.5 mg tablet 05-13 00:00: 00 No 1mg Levemir U-100 Insulin 100 unit/mL subcutaneou s solution 04-15 00:00: 00 No 10unit/ mL glipizide 10 mg tablet 04-15 00:00: 00 No 1mg metformin 1,000 mg tablet 04-15 00:00: 00 No 1mg simvastatin 20 mg tablet 04-15 00:00: 00 No 1mg levothyroxi ne 50 mcg tablet 04-15 00:00: 00 No 1mcg Levemir U-100 Insulin 100 unit/mL subcutaneou s solution 04-15 00:00: 00 No 10unit/ mL glipizide 10 mg tablet 04-15 00:00: 00 No 1mg metformin 1,000 mg tablet 04-15 00:00: 00 No 1mg simvastatin 20 mg tablet 04-15 00:00: 00 No 1mg levothyroxi ne 50 mcg tablet 04-15 00:00: 00 No 1mcg hydroxyzine HCl 25 mg tablet 2016-04 00:00: 00 No 1mg hydroxyzine HCl 25 mg tablet 2016-04 00:00: 00 No 1mg glipizide 10 mg tablet 2016-04 00:00: 00 No 1mg lisinopril 2.5 mg tablet 2016-04 00:00: 00 No 1mg metformin 1,000 mg tablet 2016-04 00:00: 00 No 1mg simvastatin 40 mg tablet 2016-04 00:00: 00 No 1mg levothyroxi ne 50 mcg tablet 2016-04 00:00: 00 No 1mcg glipizide 10 mg tablet 2016-04 00:00: 00 No 1mg lisinopril 2.5 mg tablet 2016-04 00:00: 00 No 1mg metformin 1,000 mg tablet 2016-04 00:00: 00 No 1mg simvastatin 40 mg tablet 2016-04 00:00: 00 No 1mg levothyroxi ne 50 mcg tablet 2016-04 00:00: 00 No 1mcg metformin 1,000 mg tablet 2016-04 00:00: 00 No 1mg metformin 1,000 mg tablet 2016-04 00:00: 00 No 1mg metformin 1,000 mg tablet 2016-04 00:00: 00 No 1mg metformin 1,000 mg tablet 2016-04 00:00: 00 No 1mg prednisone 20 mg tablet 2016-04 00:00: 00 No 1mg amoxicillin 500 mg capsule 2016-04 00:00: 00 No 1mg prednisone 20 mg tablet 2016-04 00:00: 00 No 1mg amoxicillin 500 mg capsule 2016-04 00:00: 00 No 1mg glipizide 5 mg tablet 11-26 00:00: 00 No 1mg metformin 1,000 mg tablet 11-26 00:00: 00 No 1mg simvastatin 40 mg tablet 11-26 00:00: 00 No 1mg fluoxetine 20 mg capsule 11-26 00:00: 00 No 3mg glipizide 5 mg tablet 11-26 00:00: 00 No 1mg metformin 1,000 mg tablet 11-26 00:00: 00 No 1mg simvastatin 40 mg tablet 11-26 00:00: 00 No 1mg fluoxetine 20 mg capsule 11-26 00:00: 00 No 3mg glipizide 5 mg tablet 06-04 00:00: 00 No 1mg metformin 1,000 mg tablet 06-04 00:00: 00 No 1mg simvastatin 40 mg tablet 06-04 00:00: 00 No 1mg fluoxetine 20 mg capsule 06-04 00:00: 00 No 3mg glipizide 5 mg tablet 06-04 00:00: 00 No 1mg metformin 1,000 mg tablet 06-04 00:00: 00 No 1mg simvastatin 40 mg tablet 06-04 00:00: 00 No 1mg fluoxetine 20 mg capsule 06-04 00:00: 00 No 3mg glipizide 5 mg tablet 05-12 00:00: 00 No 1mg metformin 1,000 mg tablet 05-12 00:00: 00 No 1mg simvastatin 40 mg tablet 05-12 00:00: 00 No 1mg glipizide 5 mg tablet 05-12 00:00: 00 No 1mg metformin 1,000 mg tablet 05-12 00:00: 00 No 1mg simvastatin 40 mg tablet 05-12 00:00: 00 No 1mg metformin 1,000 mg tablet 2015-04 00:00: 00 No 1mg glipizide 5 mg tablet 2015-04 00:00: 00 No 1mg simvastatin 40 mg tablet 2015-04 00:00: 00 No 1mg metformin 1,000 mg tablet 2015-04 00:00: 00 No 1mg glipizide 5 mg tablet 2015-04 00:00: 00 No 1mg simvastatin 40 mg tablet 2015-04 00:00: 00 No 1mg metformin 1,000 mg tablet 2015-04 00:00: 00 No 1mg metformin 1,000 mg tablet 2015-04 00:00: 00 No 1mg trazodone 100 mg tablet 2015-04 00:00: 00 No 12mg fluoxetine 20 mg capsule 2015-04 00:00: 00 No 3mg trazodone 100 mg tablet 2015-04 00:00: 00 No 12mg fluoxetine 20 mg capsule 2015-04 00:00: 00 No 3mg metformin 1,000 mg tablet 11-19 00:00: 00 No 1mg glipizide 5 mg tablet 11-19 00:00: 00 No 1mg Bactrim DS 800 mg-160 mg tablet 11-19 00:00: 00 No 1mg simvastatin 40 mg tablet 11-19 00:00: 00 No 1mg metformin 1,000 mg tablet 11-19 00:00: 00 No 1mg glipizide 5 mg tablet 11-19 00:00: 00 No 1mg Bactrim DS 800 mg-160 mg tablet 11-19 00:00: 00 No 1mg simvastatin 40 mg tablet 11-19 00:00: 00 No 1mg trazodone 100 mg tablet 11-05 00:00: 00 No 12mg fluoxetine 20 mg capsule 11-05 00:00: 00 No 3mg trazodone 100 mg tablet 11-05 00:00: 00 No 12mg fluoxetine 20 mg capsule 11-05 00:00: 00 No 3mg glipizide 5 mg tablet 10-13 00:00: 00 No 1mg metformin 1,000 mg tablet 10-13 00:00: 00 No 1mg Bactrim DS 800 mg-160 mg tablet 10-13 00:00: 00 No 1mg simvastatin 40 mg tablet 10-13 00:00: 00 No 1mg glipizide 5 mg tablet 10-13 00:00: 00 No 1mg metformin 1,000 mg tablet 10-13 00:00: 00 No 1mg Bactrim DS 800 mg-160 mg tablet 10-13 00:00: 00 No 1mg simvastatin 40 mg tablet 10-13 00:00: 00 No 1mg amoxicillin 500 mg capsule 07-13 00:00: 00 No 1mg glipizide 5 mg tablet 07-13 00:00: 00 No 1mg metformin 1,000 mg tablet 07-13 00:00: 00 No 1mg simvastatin 40 mg tablet 07-13 00:00: 00 No 1mg amoxicillin 500 mg capsule 07-13 00:00: 00 No 1mg amoxicillin 500 mg capsule 07-13 00:00: 00 No 1mg glipizide 5 mg tablet 07-13 00:00: 00 No 1mg metformin 1,000 mg tablet 07-13 00:00: 00 No 1mg simvastatin 40 mg tablet 07-13 00:00: 00 No 1mg amoxicillin 500 mg capsule 07-13 00:00: 00 No 1mg fluoxetine 20 mg tablet 05-13 00:00: 00 No 3mg trazodone 100 mg tablet 05-13 00:00: 00 No 12mg trazodone 100 mg tablet 05-13 00:00: 00 No 12mg fluoxetine 20 mg tablet 05-13 00:00: 00 No 3mg trazodone 100 mg tablet 05-13 00:00: 00 No 12mg trazodone 100 mg tablet 05-13 00:00: 00 No 12mg glipizide 10 mg tablet 2014-04 00:00: 00 No 1mg glipizide 10 mg tablet 2014-04 00:00: 00 No 1mg Cipro 500 mg tablet 2014-04 00:00: 00 No 1mg metformin 1,000 mg tablet 2014-04 00:00: 00 No 1mg glipizide 5 mg tablet 2014-04 00:00: 00 No 1mg simvastatin 40 mg tablet 2014-04 00:00: 00 No 1mg Cipro 500 mg tablet 2014-04 00:00: 00 No 1mg metformin 1,000 mg tablet 2014-04 00:00: 00 No 1mg glipizide 5 mg tablet 2014-04 00:00: 00 No 1mg simvastatin 40 mg tablet 2014-04 00:00: 00 No 1mg trazodone 100 mg tablet 2014-04 00:00: 00 No 12mg fluoxetine 40 mg capsule 2014-04 00:00: 00 No 4mg Vistaril 25 mg capsule 2014-04 00:00: 00 No 1mg trazodone 100 mg tablet 2014-04 00:00: 00 No 12mg fluoxetine 40 mg capsule 2014-04 00:00: 00 No 4mg Vistaril 25 mg capsule 2014-04 00:00: 00 No 1mg Bactrim DS 800 mg-160 mg tablet 2014-04 00:00: 00 No 1mg Bactrim DS 800 mg-160 mg tablet 2014-04 00:00: 00 No 1mg Diflucan 150 mg tablet 2014-04 00:00: 00 No 1mg Diflucan 150 mg tablet 2014-04 00:00: 00 No 1mg trazodone 100 mg tablet 2014-04 00:00: 00 No 12mg fluoxetine 20 mg capsule 2014-04 00:00: 00 No 3mg trazodone 100 mg tablet 2014-04 00:00: 00 No 12mg fluoxetine 20 mg capsule 2014-04 00:00: 00 No 3mg Flonase 50 mcg/actuati on nasal spray,suspe nsion 2014-04 00:00: 00 No 2mcg/ac tuation metformin 1,000 mg tablet 2014-04 00:00: 00 No 1mg lorazepam 1 mg tablet 2014-04 00:00: 00 No 1mg trazodone 100 mg tablet 2014-04 00:00: 00 No 1mg Zithromax Z-Jam 250 mg tablet 2014-04 00:00: 00 No 1mg simvastatin 40 mg tablet 2014-04 00:00: 00 No 1mg fluoxetine 20 mg capsule 2014-04 00:00: 00 No 2mg fluoxetine 20 mg capsule 2014-04 00:00: 00 No 3mg fluoxetine 20 mg capsule 2014-04 00:00: 00 No 3mg Flonase 50 mcg/actuati on nasal spray,suspe nsion 2014-04 00:00: 00 No 2mcg/ac tuation metformin 1,000 mg tablet 2014-04 00:00: 00 No 1mg lorazepam 1 mg tablet 2014-04 00:00: 00 No 1mg trazodone 100 mg tablet 2014-04 00:00: 00 No 1mg Zithromax Z-Jam 250 mg tablet 2014-04 00:00: 00 No 1mg simvastatin 40 mg tablet 2014-04 00:00: 00 No 1mg fluoxetine 20 mg capsule 2014-04 00:00: 00 No 2mg fluoxetine 20 mg capsule 2014-04 00:00: 00 No 3mg fluoxetine 20 mg capsule 2014-04 00:00: 00 No 3mg fluoxetine 20 mg capsule 11-12 00:00: 00 No 4mg fluoxetine 20 mg capsule 11-12 00:00: 00 No 4mg glipizide 5 mg tablet 10-29 00:00: 00 No 1mg glipizide 5 mg tablet 10-29 00:00: 00 No 1mg metformin 1,000 mg tablet 10-29 00:00: 00 No 1mg trazodone 100 mg tablet 10-29 00:00: 00 No 1mg simvastatin 40 mg tablet 10-29 00:00: 00 No 1mg simvastatin 40 mg tablet 10-29 00:00: 00 No 1mg fluoxetine 20 mg capsule 10-29 00:00: 00 No 4mg glipizide 5 mg tablet 10-29 00:00: 00 No 1mg glipizide 5 mg tablet 10-29 00:00: 00 No 1mg metformin 1,000 mg tablet 10-29 00:00: 00 No 1mg trazodone 100 mg tablet 10-29 00:00: 00 No 1mg simvastatin 40 mg tablet 10-29 00:00: 00 No 1mg simvastatin 40 mg tablet 10-29 00:00: 00 No 1mg fluoxetine 20 mg capsule 10-29 00:00: 00 No 4mg simvastatin 40 mg tablet 10-11 00:00: 00 No 1mg simvastatin 40 mg tablet 10-11 00:00: 00 No 1mg metformin 1,000 mg tablet 10-10 00:00: 00 No 1mg trazodone 100 mg tablet 10-10 00:00: 00 No 1mg fluoxetine 20 mg capsule 10-10 00:00: 00 No 4mg metformin 1,000 mg tablet 10-10 00:00: 00 No 1mg trazodone 100 mg tablet 10-10 00:00: 00 No 1mg fluoxetine 20 mg capsule 10-10 00:00: 00 No 4mg simvastatin 40 mg tablet 07-12 00:00: 00 No 1mg simvastatin 40 mg tablet 07-12 00:00: 00 No 1mg Vital Signs Vital Name Observation Time Observation Value Comments S ource BP Systolic 2021 09:45:00 115 mm[Hg] BP Diastolic 2021 09:45:00 77 mm[Hg] Weight Measured 2021 09:45:00 152.80 pounds Height Measured 2021 09:45:00 63.00 inches Body Temperature 2021 09:45:00 98.10 degrees Heart Rate 2021 09:45:00 77.00 /min Respiratory Rate 2021 09:45:00 18.00 /min BP Systolic 2021-11-12 08:14:00 134 mm[Hg] BP Diastolic 2021-11-12 08:14:00 79 mm[Hg] Weight Measured 2021-11-12 08:14:00 153.00 pounds Height Measured 2021-11-12 08:14:00 63.00 inches Body Temperature 2021-11-12 08:14:00 97.90 degrees Heart Rate 2021-11-12 08:14:00 95.00 /min Respiratory Rate 2021-11-12 08:14:00 18.00 /min Height 2021-02-11 12:22:28 [facility] [place] (S[place]) Weight Measured 2021-02-11 12:22:28 [facility] Body Temperature 2021-02-11 12:22:28 [facility] (Sadi) Heart Rate 2021-02-11 12:22:28 [facility] S [facility] (Sadi) Respiratory Rate 2021-02-11 12:22:28 [facility] (Sadi) O2 % BldC Oximetry 2021-02-11 12:22:28 [facility] (Sadi) BP Systolic 2021-02-11 12:22:28 [facility] (Sadi) BP Diastolic 2021-02-11 12:22:28 [facility] (Sadi) BMI (Body Mass Index) 2021-02-11 12:22:28 [facility] ([place]adi) BP Systolic 2018-01-03 09:34:00 125 mm[Hg] BP Diastolic 2018-01-03 09:34:00 76 mm[Hg] Weight Measured 2018-01-03 09:34:00 156.00 pounds Height Measured 2018-01-03 09:34:00 63.00 inches Body Temperature 2018-01-03 09:34:00 98.10 degrees Heart Rate 2018-01-03 09:34:00 60.00 /min Respiratory Rate 2018-01-03 09:34:00 18.00 /min BP Systolic 2017-12-20 13:42:00 119 mm[Hg] BP Diastolic 2017-12-20 13:42:00 78 mm[Hg] Weight Measured 2017-12-20 13:42:00 156.00 pounds Height Measured 2017-12-20 13:42:00 63.00 inches Body Temperature 2017-12-20 13:42:00 98.10 degrees Heart Rate 2017-12-20 13:42:00 81.00 /min Respiratory Rate 2017-12-20 13:42:00 18.00 /min BP Systolic 2017-11-17 16:06:00 125 mm[Hg] BP Diastolic 2017-11-17 16:06:00 74 mm[Hg] Weight Measured 2017-11-17 16:06:00 157.80 pounds Height Measured 2017-11-17 16:06:00 Body Temperature 2017-11-17 16:06:00 Heart Rate 2017-11-17 16:06:00 82.00 /min Respiratory Rate 2017-11-17 16:06:00 BP Systolic 2017-11-01 08:55:00 120 mm[Hg] BP Diastolic 2017-11-01 08:55:00 77 mm[Hg] Weight Measured 2017-11-01 08:55:00 157.20 pounds Height Measured 2017-11-01 08:55:00 63.00 inches Body Temperature 2017-11-01 08:55:00 98.20 degrees Heart Rate 2017-11-01 08:55:00 65.00 /min Respiratory Rate 2017-11-01 08:55:00 18.00 /min BP Systolic 2017-10-25 09:47:00 129 mm[Hg] BP Diastolic 2017-10-25 09:47:00 79 mm[Hg] Weight Measured 2017-10-25 09:47:00 157.40 pounds Height Measured 2017-10-25 09:47:00 63.00 inches Body Temperature 2017-10-25 09:47:00 98.40 degrees Heart Rate 2017-10-25 09:47:00 80.00 /min Respiratory Rate 2017-10-25 09:47:00 18.00 /min BP Systolic 2017-07-12 10:05:00 130 mm[Hg] BP Diastolic 2017-07-12 10:05:00 85 mm[Hg] Weight Measured 2017-07-12 10:05:00 156.40 pounds Height Measured 2017-07-12 10:05:00 63.00 inches Body Temperature 2017-07-12 10:05:00 98.70 degrees Heart Rate 2017-07-12 10:05:00 86.00 /min Respiratory Rate 2017-07-12 10:05:00 BP Systolic 2017-04-13 10:13:00 122 mm[Hg] BP Diastolic 2017-04-13 10:13:00 76 mm[Hg] Weight Measured 2017-04-13 10:13:00 158.80 pounds Height Measured 2017-04-13 10:13:00 63.07 inches Body Temperature 2017-04-13 10:13:00 98.50 degrees Heart Rate 2017-04-13 10:13:00 97.00 /min Respiratory Rate 2017-04-13 10:13:00 18.00 /min BP Systolic 2017-02-16 12:17:00 127 mm[Hg] BP Diastolic 2017-02-16 12:17:00 86 mm[Hg] Weight Measured 2017-02-16 12:17:00 156.80 pounds Height Measured 2017-02-16 12:17:00 63.07 inches Body Temperature 2017-02-16 12:17:00 99.00 degrees Heart Rate 2017-02-16 12:17:00 70.00 /min Respiratory Rate 2017-02-16 12:17:00 18.00 /min BP Systolic 2017-02-04 17:21:00 106 mm[Hg] BP Diastolic 2017-02-04 17:21:00 70 mm[Hg] Weight Measured 2017-02-04 17:21:00 156.20 pounds Height Measured 2017-02-04 17:21:00 63.00 inches Body Temperature 2017-02-04 17:21:00 98.10 degrees Heart Rate 2017-02-04 17:21:00 77.00 /min Respiratory Rate 2017-02-04 17:21:00 18.00 /min Procedures Procedure Date / Time Performed Performing Clinicia n Source CT Abdomen Pelvis W Con 2018-10-22 00:00:[address] [facility] ([facility]) XR Chest 1 View Portable 2018-10-22 00:00:[address] [facility] ([place]) EKG 12 Lead in Emergency Room 2018-10-22 00:00:[address] [facility] ([facility] [address] Ecg Routine Ecg W/least 12 Lds W/i r 2015-10-14 00:00:00 Plan of Care Planned Activity Planned Date Details Comments Source Goal Plan of Care Note [code = 20682-3] Goal Plan of Care Note [code = 97866-1] Goal Plan of Care Note [code = 69813-6] Goal Plan of Care Note [code = 56565-4] Goal Plan of Care Note [code = 42892-8] Goal Plan of Care Note [code = 76996-9] Goal Plan of Care Note [code = 57857-5] Goal Plan of Care Note [code = 15205-2] Goal Plan of Care Note [code = 25387-0] Goal Plan of Care Note [code = 36677-7] Goal Plan of Care Note [code = 06396-1] Goal Plan of Care Note [code = 56372-5] Goal Plan of Care Note [code = 26536-8] Goal Plan of Care Note [code = 95158-4] Goal Plan of Care Note [code = 77794-7] Goal Plan of Care Note [code = 42020-6] Goal Plan of Care Note [code = 07199-6] Goal Plan of Care Note [code = 97919-4] Goal Plan of Care Note [code = 56703-2] Goal Plan of Care Note [code = 99805-0] Goal Plan of Care Note [code = 10487-3] Goal Plan of Care Note [code = 22860-7] Goal Plan of Care Note [code = 97454-0] Goal Plan of Care Note [code = 69337-6] Goal Plan of Care Note [code = 43941-6] Goal Plan of Care Note [code = 42788-4] Goal Plan of Care Note [code = 29862-0] Goal Plan of Care Note [code = 13498-4] Goal Plan of Care Note [code = 21676-3] Goal Plan of Care Note [code = 31383-9] Goal Plan of Care Note [code = 63447-7] Goal Plan of Care Note [code = 51941-9] Goal Plan of Care Note [code = 16110-3] Goal Plan of Care Note [code = 49424-8] Goal Plan of Care Note [code = 83806-5] Goal Plan of Care Note [code = 32749-4] Goal Plan of Care Note [code = 70068-1] Goal Plan of Care Note [code = 74538-3] Goal Plan of Care Note [code = 02179-7] Goal Plan of Care Note [code = 54976-5] Goal Plan of Care Note [code = 36540-4] Goal Plan of Care Note [code = 02800-3] Goal Plan of Care Note [code = 90881-5] Goal Plan of Care Note [code = 12281-9] Goal Plan of Care Note [code = 82443-3] Goal Plan of Care Note [code = 06722-7] Goal Plan of Care Note [code = 31023-7] Goal Plan of Care Note [code = 27910-2] Goal Plan of Care Note [code = 23513-4] Goal Plan of Care Note [code = 78704-2] Goal Plan of Care Note [code = 33032-9] Goal Plan of Care Note [code = 74450-0] Goal Plan of Care Note [code = 57884-3] Goal Plan of Care Note [code = 34837-2] Goal Plan of Care Note [code = 02267-6] Goal Plan of Care Note [code = 18327-1] Goal Plan of Care Note [code = 51788-2] Goal Plan of Care Note [code = 23510-6] Goal Plan of Care Note [code = 48221-2] Goal Plan of Care Note [code = 81212-4] Goal Plan of Care Note [code = 74289-5] Goal Plan of Care Note [code = 06457-1] Goal Plan of Care Note [code = 39754-1] Goal Plan of Care Note [code = 87216-0] Goal Plan of Care Note [code = 31541-7] Goal Plan of Care Note [code = 36442-0] Goal Plan of Care Note [code = 15869-9] Goal Plan of Care Note [code = 67340-5] Goal Plan of Care Note [code = 06992-5] Goal Plan of Care Note [code = 02265-8] Goal Plan of Care Note [code = 94146-5] Goal Plan of Care Note [code = 86497-8] Goal Plan of Care Note [code = 32511-8] Goal Plan of Care Note [code = 42436-1] Goal Plan of Care Note [code = 62256-6] Goal Plan of Care Note [code = 85074-3] Goal Plan of Care Note [code = 29557-3] Goal Plan of Care Note [code = 36826-9] Goal Plan of Care Note [code = 86925-0] Goal Plan of Care Note [code = 85815-2] Goal Plan of Care Note [code = 82892-4] Goal Plan of Care Note [code = 61485-1] Encounters Start Date/Time End Date/Time Encounter Type Admission Type Attending [facility] Care Department Encounter ID Source 2023-04-07 14:06:23 2023-04-07 14:06:23 Outpatient [facility] [id number] Jorge F Hernandez 2023-02-25 16:44:10 2023-02-25 16:44:10 Outpatient [facility] [id number] Jorge Monterroso Hernandez 2022-11-17 15:22:13 2022-11-17 15:22:13 Outpatient [facility] [id number] Jorge Monterroso Hernandez 2022-11-11 09:39:36 2022-11-11 09:39:36 Outpatient [facility] [id number] Jorge Ng 2022-11-05 11:27:59 2022-11-05 11:27:59 Outpatient [facility] [id number] Jorge F Hernandez 2022-10-22 08:46:51 2022-10-22 08:46:51 Outpatient [facility] [id number] Jorge Ng 2022-05-25 11:22:12 2022-05-25 11:22:12 Outpatient [facility] [id number] Jorge Ng 2021 00:00:00 2021 00:00:00 Outpatient Visit [id number] 2021-11-12 00:00:00 2021-11-12 00:00:00 Outpatient Visit [id number] 2020-09-29 10:30:00 2020-09-29 10:30:00 [id number] 2018-10-22 11:56:00 2018-10-22 15:05:00 Departed Emergency ER [facility] [id number] [facility] [id number] [facility] Results Test Description Test Time Test Comments Results Result Co mments Source [id number] 06:25:11* Test Item Value Reference Range Interpretation Comme [facility] AMYLASE (test code = 2205) 96 U/L 28-100 [id number] 06:25:11* Test Item Value Reference Range Interpretation Comme nts LIPASE (test code = 2058) 46 U/L 13-60 TSH, THIRD [id number] 01:05:19* Test Item Value Reference Range Interpretation Comme nts TSH, THIRD GENERATION (test code = 2821) 3.070 UIU/ML 0.400-4.100 LIPID [id number] 00:53:13* Test Item Value Reference Range Interpretation Comme nts CHOLESTEROL (test code = 2210) 231 MG/DL <200 H TRIGLYCERIDES (test code = 2232) 1048 MG/DL <150 H HDL CHOLESTEROL (test code = 2220) 39 MG/DL >39 L CALC LDL CHOL (test code = 2237) (NOTE) MG/DL <100 UNABLE TO CALCUL ATE A VALID LDL CHOLESTEROL WHEN THE TRIGLYCERIDEVALUE IS GREATER THAN 400 MG/DL.UNABLE TO CALCULATE A VALID LDL CHOLESTEROL WHEN THE TRIGLYCERIDEVALUE IS GREATER THAN 400 MG/DL. NOTE: CALCULATED LDL IS BASED ON RICHARD-[place] METHOD WHICHINCLUDES ADJUSTABLE TRIGLYCERIDE:VLDL CHOLESTEROL RATIO.THIS FACTOR VARIES BY MEASURED TRIGLYCERIDE AND NON-HDLCHOLESTEROL CONCENTRATIONS WITH INCREASED CALCULATED LDL SEENIN HIGHER TRIGLYCERIDE OR LOWER NON-HDL SPECIMENS. FOR MOREINFORMATION, SEE CLIENT ANNOUNCEMENT AT [email or web address] CalcLDL-C RISK RATIO LDL/HDL (test code = 2238) (NOTE) RATIO <3.22 UNABLE TO JUDY CULATE HEMOGLOBIN [id number] 02:43:52* Test Item Value Reference Range Interpretation Comme [facility] HEMOGLOBIN A1c (test code = 32256) 8.5 % 4.2-5.6 H [employer]OCIATION GUIDELINES FOR HGB A1C: PREDIABETES/INCREASED RISK . . . . . . . 5.7-6.4% DIAGNOSIS OF DIABETES . . . . . . . . . >=6.5% WITH CONFIRMATION OR APPROPRIATE SYMPTOMS NOTE: ASSAY MAY BE AFFECTED BY HEMOGLOBINOPATHIES (SICKLE CELL ANEMIA, S-C DISEASE, OTHERS) OR ARTIFICIALLY LOWERED BY DECREASED RED CELL SURVIVAL (HEMOLYTIC ANEMIAS, BLOOD LOSS, ETC.). CONSIDER ALTERNATE TESTING OR LABORATORY CONSULTATION. UNLESS OTHERWISE INDICATED, ALL TESTING PERFORMED AT [facility] [address] [place] [address] ACTIVE DIRECTORY ADMINISTRATOR: DUYEN HOFFMAN M.D. CLIA NUMBER [id number] [facility] [place]. [id number] TSH, THIRD [id number] 05:46:08* Test Item Value Reference Range Interpretation Comme [facility] TSH, THIRD GENERATION (test code = 2821) 2.380 UIU/ML 0.400-4.100 [facility] has important pathology staff changes effective 06/09/2022. New pathology staff will provide uninterrupted, excellent patient care and clinical consultation. See URL: [email or web address]. UNLESS OTHERWISE INDICATED, ALL TESTING PERFORMED AT [facility] [address] [facility] [place] CLIA: [id number], CAP: [id number] COMPREHENSIVE METABOLIC [id number] 04:06:56* Test Item Value Reference Range Interpretation Comme nts GLUCOSE (test code = 2217) 305 MG/DL 70-99 H BUN (test code = 220) 15 MG/DL 8-23 CREATININE (test code = 221) 0.52 MG/DL 0.60-1.30 L eGFR (2020 CKD-EPI) (test code = 73921) 103 ML/MIN/1.73 >60 CALC BUN/CREAT (test code = 2235) 29 RATIO 6-28 H SODIUM (test code = 223) 142 MEQ/L 133-146 POTASSIUM (test code = 2228) 4.2 MEQ/L 3.5-5.4 CHLORIDE (test code = 2215) 101 MEQ/L 95-107 CARBON DIOXIDE (test code = 2206) 24 MEQ/L 19-31 CALCIUM (test code = 2209) 10.1 MG/DL 8.5-10.5 PROTEIN, TOTAL (test code = 222) 7.6 G/DL 6.1-8.3 ALBUMIN (test code = 2201) 4.9 G/DL 3.5-5.2 CALC GLOBULIN (test code = 2240) 2.7 G/DL 1.9-3.7 CALC A/G RATIO (test code = 2234) 1.8 RATIO 1.0-2.6 BILIRUBIN, TOTAL (test code = 2207) 0.5 MG/DL See_Comment [Automated me ssage] The system which generated this result transmitted reference range: <=1.2. The reference range was not used to interpret this result as normal/abnormal. ALKALINE PHOSPHATASE (test code = 2204) 90 U/L 40-140 AST (test code = 2218) 40 U/L 9-40 ALT (test code = 2219) 52 U/L 5-40 H LIPID [id number] 04:06:56* Test Item Value Reference Range Interpretation Comme nts CHOLESTEROL (test code = 2210) 300 MG/DL <200 H TRIGLYCERIDES (test code = 2232) 201 MG/DL <150 H HDL CHOLESTEROL (test code = 2220) 50 MG/DL >39 CALC LDL CHOL (test code = 2237) 211 MG/DL <100 H NOTE: CALCULATED LDL IS BASED ON RICHARD-LONGORIA METHOD WHICHINCLUDES ADJUSTABLE TRIGLYCERIDE:VLDL CHOLESTEROL RATIO.THIS FACTOR VARIES BY MEASURED TRIGLYCERIDE AND NON-HDLCHOLESTEROL CONCENTRATIONS WITH INCREASED CALCULATED LDL SEENIN HIGHER TRIGLYCERIDE OR LOWER NON-HDL SPECIMENS. FOR MOREINFORMATION, SEE CLIENT ANNOUNCEMENT AT [email or web address]-[email or web address] RISK RATIO LDL/HDL (test code = 2238) 4.22 RATIO <3.22 H HEMOGLOBIN [id number] 02:49:54* Test Item Value Reference Range Interpretation Comme nts HEMOGLOBIN A1c (test code = 00323) 9.5 % 4.2-5.6 H [employer]IATION GUIDELINES FOR HGB A1C: PREDIABETES/INCREASED RISK . . . . . . . 5.7-6.4% DIAGNOSIS OF DIABETES . . . . . . . . . >=6.5% WITH CONFIRMATION OR APPROPRIATE SYMPTOMS NOTE: ASSAY MAY BE AFFECTED BY HEMOGLOBINOPATHIES (SICKLE CELL ANEMIA, S-C DISEASE, OTHERS) OR ARTIFICIALLY LOWERED BY DECREASED RED CELL SURVIVAL (HEMOLYTIC ANEMIAS, BLOOD LOSS, ETC.). CONSIDER ALTERNATE TESTING OR LABORATORY CONSULTATION. LIPID [id number] 04:15:43* Test Item Value Reference Range Interpretation Comme nts CHOLESTEROL (test code = 2210) 324 MG/DL <200 H TRIGLYCERIDES (test code = 2232) 280 MG/DL <150 H HDL CHOLESTEROL (test code = 2220) 58 MG/DL >39 CALC LDL CHOL (test code = 2237) 216 MG/DL <100 H NOTE: CALCULATED LDL IS BASED ON RICHARD-LONGORIA METHOD WHICHINCLUDES ADJUSTABLE TRIGLYCERIDE:VLDL CHOLESTEROL RATIO.THIS FACTOR VARIES BY MEASURED TRIGLYCERIDE AND NON-HDLCHOLESTEROL CONCENTRATIONS WITH INCREASED CALCULATED LDL SEENIN HIGHER TRIGLYCERIDE OR LOWER NON-HDL SPECIMENS. FOR MOREINFORMATION, SEE CLIENT ANNOUNCEMENT AT [email or web address]-[email or web address] RISK RATIO LDL/HDL (test code = 2238) 3.72 RATIO <3.22 H UNLESS OTHERW ISE INDICATED, [facility] [address] [place] [address] ACTIVE DIRECTORY ADMINISTRATOR: CHANEL HEMPHILL M.D. [facility] NUMBER [id number] [facility] [place]. [id number] HEMOGLOBIN [id number] 02:45:03* Test Item Value Reference Range Interpretation Comme [facility] HEMOGLOBIN A1c (test code = 28088) 8.9 % 4.2-5.6 H [employer] S ASSOCIATION GUIDELINES FOR HGB A1C: PREDIABETES/INCREASED RISK . . . . . . . 5.7-6.4% DIAGNOSIS OF DIABETES . . . . . . . . . >=6.5% WITH CONFIRMATION OR APPROPRIATE SYMPTOMS NOTE: ASSAY MAY BE AFFECTED BY HEMOGLOBINOPATHIES (SICKLE CELL ANEMIA, S-C DISEASE, OTHERS) OR ARTIFICIALLY LOWERED BY DECREASED RED CELL SURVIVAL (HEMOLYTIC ANEMIAS, BLOOD LOSS, ETC.). CONSIDER ALTERNATE TESTING OR LABORATORY CONSULTATION. Culture, [id number] 10:25:00* Test Item Value Reference Range Interpretation Comme nts Culture, Urine (test code = URC) NF Culture, Urine (test code = URC1) [address] [id number] 13:57:00* Test Item Value Reference Range Interpretation Comme nts Chemistry (test code = NA-T) 138 mmol/L 136-145 N Chemistry (test code = K-T) 4.2 mmol/L 3.5-5.1 N Chemistry (test code = CL) 100 mmol/L 98-107 N Chemistry (test code = CO2) 30 mmol/L 23-31 N Chemistry (test code = ANGP) 12 mmol/L 10-20 N Chemistry (test code = BUN) 8 mg/dL 9.8-20.1 L Chemistry (test code = CREATT) 0.70 mg/dL 0.6-1.1 N Chemistry (test code = EGFRMDRD) 85 Reference Range for Estimated GFR: Greater than 90 mL/min/1.73 m2NOTE:The MDRD equation has not been validated for use with theelderly (over 70 years of age), women, patientswith serious comorbid condition or persons with extremes ofbody size, muscle mass, or nutritional status. Chemistry (test code = GLU-T) 223 mg/dL 80-115 H Chemistry (test code = CA) 11.0 mg/dL 7.8-10.44 H Chemistry (test code = TBILI-T) 0.5 mg/dL 0.2-1.2 N Chemistry (test code = TP) 7.2 g/dL 6.0-8.3 N Chemistry (test code = ALB) 4.4 g/dL 3.4-4.8 N Chemistry (test code = GLOB) 2.8 g/dL 2.4-3.5 N Chemistry (test code = AG) 1.6 g/dL 1.2-2.2 N Chemistry (test code = ALP) 83 U/L 40-150 N Chemistry (test code = AST) 25 U/L 5-34 N Chemistry (test code = ALT) 39 U/L 8-55 N Laboratory Vetsseg6777-63-15 13:35:00* Test Item Value Reference Range Interpretation Comme nts 2160-0 (test code = 2160-0) 0.70 mg/dL [facility].1 [facility] Wgpcoew7008-89-88 13:35:00* Test Item Value Reference Range Interpretation Comme nts 2075-0 (test code = 2075-0) 100 mmol/L 98-107 [facility]Laboratory Grvdisv7072-84-79 13:35:00* Test Item Value Reference Range Interpretation Comme nts 8-9 (test code = 8-9) 30 mmol/L 23-31 [facility]Laboratory Cakcqte5281-44-04 13:35:00* Test Item Value Reference Range Interpretation Com[place] nts 77625-5 (test code = 85527-8) 11.0 mg/dL 7.8-10.44 H [facility]Laboratory Odyvygj3962-80-30 13:35:00* Test Item Value Reference Range Interpretation Comme nts 3094-0 (test code = 3094-0) 8 mg/dL 9.8-20.1 L [facility]Laboratory Recchjs1282-09-27 13:35:00* Test Item Value Reference Range Interpretation Comme nts 1920-8 (test code = 1920-8) 25 U/L 5-34 [facility]Laboratory Mrdmwtq2544-60-16 13:35:00* Test Item Value Reference Range Interpretation Comme nts 41003-3 (test code = 03433-2) 12 mmol/L 10-20 [facility]Laboratory Wgcgurd9718-23-16 13:35:00* Test Item Value Reference Range Interpretation Comme nts 6768-6 (test code = 6768-6) 83 U/L 40-150 [facility]Laboratory Qrbvpei3485-28-58 13:35:00* Test Item Value Reference Range Interpretation Comme nts 1759-0 (test code = 1759-0) 1.6 g/dL 1.2-2.2 [facility]Laboratory Iwikond6439-32-99 13:35:00* Test Item Value Reference [place]ts [address]-0 (test code = 56231-5) 4.4 g/dL 3.4-4.8 [facility]Laboratory Mptuunb1586-17-89 13:35:00* Test Item Value Reference Range Interpretation Comme nts 1744-2 (test code = 1744-2) 39 U/L 8-55 [facility]Laboratory Gffswxd5650-11-76 13:35:00* Test Item Value Reference Range Interpretation Comme nts 1975-2 (test code = 1975-2) 0.5 mg/dL 0.2-1.2 [facility]Laboratory Dxbqhte5083-92-36 13:35:00* Test Item Value Reference Range Interpretation Comme nts 2951-2 (test code = 2951-2) 138 mmol/L 136-145 [facility]Laboratory Saccqun3705-21-87 13:35:00* Test Item Value Reference Range Interpretation Comme nts 2885-2 (test code = 2885-2) 7.2 g/dL 6.0-8.3 [facility]Laboratory Aaljhcl9149-75-43 13:35:00* Test Item Value Reference Range Interpretation Comme nts 2823-3 (test code = 2823-3) 4.2 mmol/L 3.5-5.1 [facility]Laboratory Ancsmnh9281-78-02 13:35:00* Test Item Value Reference Range Interpretation Comme nts 2345-7 (test code = 2345-7) 223 mg/dL 80-115 H [facility])Laboratory Jfynoke8411-61-89 13:35:00* Test Item Value Reference Range Interpretation [place] nts 10788-7 (test code = 46716-0) 2.8 g/dL 2.4-3.5 [facility]atory Ltqatme6703-54-46 13:35:00* Test Item Value Reference [place] [address]-7 (test code = 45023-0) 85 [facility])Uktinaypw1996-24-92 13:19:00* Test Item Value Reference Range Interpretation Comme [facility] Chemistry (test code = TROPI-R) Less than 0.010 ng/mL < 0.028 * Reference Range 0.00 - 0.028 ng/mL Negative 0.029 - 0.29 ng/mL Indeterminate Greater or Equal to 0.3 ng/mL Strongly suggests CA Yztlihcpxi9813-44-74 12:54:00* Test Item Value Reference Range Interpretation Comme [facility] Hematology (test code = WBCT) 4.8 thou/uL 4.8-10.8 N Hematology (test code = RBCT) 4.37 mill/uL 4.20-5.40 N Hematology (test code = HGBT) 13.9 g/dL 12.0-16.0 N Hematology (test code = HCTT) 42.7 % 36.0-47.0 N Hematology (test code = MCV) 97.7 fL 78.0-98.0 N Hematology (test code = MCH) 31.7 pg 27.0-31.0 H Hematology (test code = MCHC) 32.5 g/dL 32.0-36.0 N Hematology (test code = RDW) 11.6 % 11.5-14.5 N Hematology (test code = PLTT) 223 thou/uL 130-400 N Hematology (test code = MPV) 7.7 fL 7.4-10.4 N Hematology (test code = %NEUT) 50.5 % 42.0-75.0 N Hematology (test code = %LYMPH) 39.6 % 21.0-51.0 N Hematology (test code = %MONO) 6.9 % 0.0-10.0 N Hematology (test code = %EOS) 1.7 % 0.0-10.0 N Hematology (test code = %BASO) 1.2 % 0.0-1.0 H Hematology (test code = NEUT#) 2.4 thou/uL 1.40-6.50 N Hematology (test code = LYMPH#) 1.9 thou/uL 1.20-3.40 N Hematology (test code = MONO#) 0.3 thou/uL 0.11-0.59 N Hematology (test code = EOS#) 0.1 thou/uL 0.0-0.7 N Hematology (test code = BASO#) 0.1 thou/uL 0.0-0.2 N Rtzawbvkaz9123-67-50 12:54:00* Test Item Value Reference Range Interpretation Comme nts Urinalysis (test code = UACLR) Light-Yellow Yellow Urinalysis (test code = UACLY) Clear Clear Urinalysis (test code = SPGR) 1.004 1.002-1.036 N Urinalysis (test code = BRYAN) 6.0 5.0-9.0 N Urinalysis (test code = UALEU) Negative Morena/uL Negative Urinalysis (test code = UANIT) Negative Negative Urinalysis (test code = PROUADIP) Negative mg/dL Neg-Trace Urinalysis (test code = GLUCU) 500 mg/dL Negative A Urinalysis (test code = KETU) Negative mg/dL Negative Urinalysis (test code = UAUROB) Normal mg/dL Less than 2 Urinalysis (test code = UABIL) Negative Negative Urinalysis (test code = UABLD) Negative Negative Urine Source: Urine Clean CatchLaboratory Eajzznn5620-74-14 12:42:00* Test Item Value Reference Range Interpretation Comme nts 6690-2 (test code = 6690-2) 4.8 thou/uL 4.8-10.8 [facility]atory Pcerxmo9945-01-94 12:42:00* Test Item Value Reference Range Interpretation Comme nts 788-0 (test code = 788-0) 11.6 % 11.5-14.5 [facility]atory Zhkvizm0744-92-40 12:42:00* Test Item Value Reference Range Interpretation Comme nts 789-8 (test code = 789-8) 4.37 mill/uL 4.20-5.40 [facility]atory Djfqkat6396-18-77 12:42:00* Test Item Value Reference Range Interpretation Comme nts 777-3 (test code = 777-3) 223 thou/uL 130-400 [facility]Laboratory Cterrnx3601-73-59 12:42:00* Test Item Value Reference Range Interpretation Comme nts 770-8 (test code = 770-8) 50.5 % 42.0-75.0 [facility]Laboratory Uupewug7089-54-89 12:42:00* Test Item Value Reference Range Interpretation Comme nts 751-8 (test code = 751-8) 2.4 thou/uL 1.40-6.50 [facility]atory Gifzavu7600-48-21 12:42:00* Test Item Value Reference Range Interpretation Comme nts 5905-5 (test code = 5905-5) 6.9 % 0.0-10.0 [facility] Josgnkd7870-63-49 12:42:00* Test Item Value Reference Range Interpretation Comme nts 742-7 (test code = 742-7) 0.3 thou/uL 0.11-0.59 [facility]atory Vwlmnue8023-97-61 12:42:00* Test Item Value Reference Range Interpretation Comme nts 64689-2 (test code = 75198-6) 7.7 fL 7.4-10.4 [facility] Xdbpqyy7212-58-45 12:42:00* Test Item Value Reference Range Interpretation Comme nts 787-2 (test code = 787-2) 97.7 fL 78.0-98.0 [facility] Zuanmkk1673-26-85 12:42:00* Test Item Value Reference Range Interpretation Comme nts 786-4 (test code = 786-4) 32.5 g/dL 32.0-36.0 [facility]atory Xpdayml3235-89-80 12:42:00* Test Item Value Reference Range Interpretation Comme nts 785-6 (test code = 785-6) 31.7 pg 27.0-31.0 H [facility]Laboratory Dxfmzfb6463-54-48 12:42:00* Test Item Value Reference Range Interpretation Comme nts 736-9 (test code = 736-9) 39.6 % 21.0-51.0 [facility]atory Pakveyv2573-85-49 12:42:00* Test Item Value Reference Range Interpretation Comme nts 731-0 (test code = 731-0) 1.9 thou/uL 1.20-3.40 [facility] Qrbvxpa3165-80-62 12:42:00* Test Item Value Reference Range Interpretation Comme nts 718-7 (test code = 718-7) 13.9 g/dL 12.0-16.0 [facility] Hlinvxn5017-05-09 12:42:00* Test Item Value Reference Range Interpretation Comme nts 713-8 (test code = 713-8) 1.7 % 0.0-10.0 [facility] Zxjubph2741-78-61 12:42:00* Test Item Value Reference Range Interpretation Comme nts 711-2 (test code = 711-2) 0.1 thou/uL 0.0-0.7 [facility] Xqhpfxu7668-55-27 12:42:00* Test Item Value Reference Range Interpretation Comme nts 706-2 (test code = 706-2) 1.2 % 0.0-1.0 H [facility] Cpgpxps6849-35-36 12:42:00* Test Item Value Reference Range Interpretation Comme nts 704-7 (test code = 704-7) 0.1 thou/uL 0.0-0.2 [facility] Pxigkzr0987-21-96 12:38:00* Test Item Value Reference Range Interpretation Comme nts 5803-2 (test code = 5803-2) 6.0 5.0-9.0 [facility] Fjnkcqd1143-04-60 12:38:00* Test Item Value Reference Range Interpretation Comme nts 5811-5 (test code = 5811-5) 1.004 1.002-1.036 [facility]atory Wpvlnrl0294-37-23 12:38:00* Test Item Value Reference Range Interpretation Com[place] nts 23434-0 (test code = 16009-7) 500 mg/dL A [facility] Gvyizik9305-48-77 12:38:00[facility] [facility] Jdjlowh5579-39-55 12:38:00Urine Protein[facility] Studies 2018-10-22 12:38:00[facility]rine [facility] Hxqlref9526-94-45 12:38:00Urine Leukocyte EsteraseCH[facility] Zbaztwv6023-97-41 12:38:00[address] [facility] Mthwvpy4637-55-76 12:38:00Urine [address] Lrihrxu8632-73-18 12:38:00Urine Clarity[facility] Cjlxfzu3312-07-09 12:38:00Urine BloodCH[facility] Qbuiqkn0546-47-29 12:38:00Urine Bilirubin[facility] Cfvayck0281-33-31 12:27:[address] [facility]Hicvaqvo0367-38-94 12:18:00* Test Item Value Reference Range Interpretation Comme nts Accuchek (test code = ACU) 303 mg/dL 70-110 H URINE CULTURE, NO [id number] 00:00:00* Test Item Value Reference Range Interpretation Comme nts URINE CULTURE, NO SENS (test code = 98983) SPECIMEN NUMBER: [id number] URINE CULTURE, NO [id number] 00:00:00* Test Item Value Reference Range Interpretation Comme nts URINE CULTURE, NO SENS (test code = 54215) SPECIMEN NUMBER: [id number] URINE CULTURE, NO [id number] 00:00:00* Test Item Value Reference Range Interpretation Comme nts URINE CULTURE, NO SENS (test code = 40718) SPECIMEN NUMBER: [id number] PAP TEST, THINPREP, [id number] 00:00:00* Test Item Value Reference Range Interpretation Comme nts SOURCE: (test code = 8001) Endocervical SLIDES: (test code = 8011) 1 LMP: (test code = 8021) NOT GIVEN SPECIMEN ADEQUACY: (test code = 16113) (NOTE) INTERPRETATION: (test code = 21270) EPITHELIAL ABNORMALITY SEE BELOW CAREER SERVICES COORDINATOR: (test code = 8101) CAMPBELL Grigsby(ASCP)IAC PATHOLOGIST INTERPRETATION BY: (test code = 8122) [facility] LOCATION: (test code = 11228) (NOTE) CPT: (test code = 8140) (NOTE) PAP TEST, THINPREP, [id number] 00:00:00* Test Item Value Reference Range Interpretation Comme nts SOURCE: (test code = 8001) Endocervical SLIDES: (test code = 8011) 1 LMP: (test code = 8021) NOT GIVEN SPECIMEN ADEQUACY: (test code = 85324) (NOTE) INTERPRETATION: (test code = 18502) EPITHELIAL ABNORMALITY SEE BELOW CAREER SERVICES COORDINATOR: (test code = 8101) CAMPBELL Grigsby(ASCP)IAC PATHOLOGIST INTERPRETATION BY: (test code = 8122) [facility] LOCATION: (test code = 28523) (NOTE) CPT: (test code = 8140) (NOTE) PAP TEST, THINPREP, [id number] 00:00:00* Test Item Value Reference Range Interpretation Comme nts SOURCE: (test code = 8001) Endocervical SLIDES: (test code = 8011) 1 LMP: (test code = 8021) NOT GIVEN SPECIMEN ADEQUACY: (test code = 22614) (NOTE) INTERPRETATION: (test code = 84794) EPITHELIAL ABNORMALITY SEE BELOW CAREER SERVICES COORDINATOR: (test code = 8101) CAMPBELL Grigsby(ASCP)IAC PATHOLOGIST INTERPRETATION BY: (test code = 8122) [facility] LOCATION: (test code = 59800) (NOTE) CPT: (test code = 8140) (NOTE) VITAMIN D, 25 [id number] 00:00:00* Test Item Value Reference Range Interpretation Comme nts VITAMIN D, 25 OH (test code = 4958) 18 NG/ML HEMOGLOBIN [id number] 00:00:00* Test Item Value Reference Range Interpretation Comme [facility] HEMOGLOBIN A1c (test code = 54907) 8.8 % HEMOGLOBIN [id number] 00:00:00* Test Item Value Reference Range Interpretation Comme [facility] HEMOGLOBIN A1c (test code = 71174) 8.8 % [id number] 00:00:00* Test Item Value Reference Range Interpretation Comme nts TSH, THIRD GENERATION (test code = 2821) 4.020 UIU/ML [id number] 00:00:00* Test Item Value Reference Range Interpretation Comme nts TSH, THIRD GENERATION (test code = 2821) 4.020 UIU/ML VITAMIN D, 25 [id number] 00:00:00* Test Item Value Reference Range Interpretation Comme nts VITAMIN D, 25 OH (test code = 4958) 18 NG/ML VITAMIN D, 25 [id number] 00:00:00* Test Item Value Reference Range Interpretation Comme nts VITAMIN D, 25 OH (test code = 4958) 18 NG/ML HEMOGLOBIN [id number] 00:00:00* Test Item Value Reference Range Interpretation Comme nts HEMOGLOBIN A1c (test code = 27225) 8.8 % HEMOGLOBIN [id number] 00:00:00* Test Item Value Reference Range Interpretation Comme nts HEMOGLOBIN A1c (test code = 00880) 8.8 % HEMOGLOBIN [id number] 00:00:00* Test Item Value Reference Range Interpretation Comme nts HEMOGLOBIN A1c (test code = 36272) 8.8 % [id number] 00:00:00* Test Item Value Reference Range Interpretation Comme nts TSH, THIRD GENERATION (test code = 2821) 4.020 UIU/ML [id number] 00:00:00* Test Item Value Reference Range Interpretation Comme nts TSH, THIRD GENERATION (test code = 2821) 4.020 UIU/ML [id number] 00:00:00* Test Item Value Reference Range Interpretation Comme nts TSH, THIRD GENERATION (test code = 2821) 4.020 UIU/ML HEMOGLOBIN [id number] 00:00:00* Test Item Value Reference Range Interpretation Comme nts HEMOGLOBIN A1c (test code = 39288) 8.6 % HEMOGLOBIN [id number] 00:00:00* Test Item Value Reference Range Interpretation Comme nts HEMOGLOBIN A1c (test code = 23947) 8.6 % COMPREHENSIVE METABOLIC [id number] 00:00:00* Test Item Value Reference Range Interpretation Comme nts GLUCOSE (test code = 2217) 276 MG/DL BUN (test code = 2208) 14 MG/DL CREATININE (test code = 2214) 0.60 MG/DL eGFR AMER. (test cod e = 36559) 115 ML/MIN/1.73 eGFR NON- AMER. (test code = 18974) 99 ML/MIN/1.73 CALC BUN/CREAT (test code = 2235) 23 RATIO SODIUM (test code = 2231) 142 MEQ/L POTASSIUM (test code = 2228) 4.2 MEQ/L CHLORIDE (test code = 2215) 97 MEQ/L CARBON DIOXIDE (test code = 2206) 29 MEQ/L CALCIUM (test code = 2209) 9.7 MG/DL PROTEIN, TOTAL (test code = 2229) 7.8 G/DL ALBUMIN (test code = 2201) 5.2 G/DL CALC GLOBULIN (test code = 2240) 2.6 G/DL CALC A/G RATIO (test code = 2234) 2.0 RATIO BILIRUBIN, TOTAL (test code = 2207) 0.4 MG/DL ALKALINE PHOSPHATASE (test code = 2204) 88 U/L AST (test code = 2218) 47 U/L ALT (test code = 2219) 67 U/L LIPID [id number] 00:00:00* Test Item Value Reference Range Interpretation Comme nts CHOLESTEROL (test code = 2210) 198 MG/DL TRIGLYCERIDES (test code = 2232) 120 MG/DL HDL CHOLESTEROL (test code = 2220) 77 MG/DL CALC LDL CHOL (test code = 2237) 97 MG/DL RISK RATIO LDL/HDL (test cod e = 2238) 1.26 RATIO THYROID II PROFILE (T3U, T4, T7, TSH)[id number] 00:00:00* Test Item Value Reference Range Interpretation Comme nts T3 UPTAKE (test code = 2817) 32.0 % T4 (THYROXINE) (test code = 2819) 7.9 UG/DL CALCULATED T7 (FTI) (test co de = 2820) 2.53 TSH (test code = 2821) 2.270 UIU/ML HEMOGLOBIN [id number] 00:00:00* Test Item Value Reference Range Interpretation Comme nts HEMOGLOBIN A1c (test code = 72455) 8.6 % HEMOGLOBIN [id number] 00:00:00* Test Item Value Reference Range Interpretation Comme nts HEMOGLOBIN A1c (test code = 81700) 8.6 % HEMOGLOBIN [id number] 00:00:00* Test Item Value Reference Range Interpretation Comme nts HEMOGLOBIN A1c (test code = 78742) 8.6 % COMPREHENSIVE METABOLIC [id number] 00:00:00* Test Item Value Reference Range Interpretation Comme nts GLUCOSE (test code = 2217) 276 MG/DL BUN (test code = 2208) 14 MG/DL CREATININE (test code = 2214) 0.60 MG/DL eGFR AMER. (test cod e = 23282) 115 ML/MIN/1.73 eGFR NON- AMER. (test code = 37746) 99 ML/MIN/1.73 CALC BUN/CREAT (test code = 2235) 23 RATIO SODIUM (test code = 2231) 142 MEQ/L POTASSIUM (test code = 2228) 4.2 MEQ/L CHLORIDE (test code = 2215) 97 MEQ/L CARBON DIOXIDE (test code = 2206) 29 MEQ/L CALCIUM (test code = 2209) 9.7 MG/DL PROTEIN, TOTAL (test code = 2229) 7.8 G/DL ALBUMIN (test code = 2201) 5.2 G/DL CALC GLOBULIN (test code = 2240) 2.6 G/DL CALC A/G RATIO (test code = 2234) 2.0 RATIO BILIRUBIN, TOTAL (test code = 2207) 0.4 MG/DL ALKALINE PHOSPHATASE (test code = 2204) 88 U/L AST (test code = 2218) 47 U/L ALT (test code = 2219) 67 U/L COMPREHENSIVE METABOLIC [id number] 00:00:00* Test Item Value Reference Range Interpretation Comme nts GLUCOSE (test code = 2217) 276 MG/DL BUN (test code = 2208) 14 MG/DL CREATININE (test code = 2214) 0.60 MG/DL eGFR AMER. (test cod e = 96291) 115 ML/MIN/1.73 eGFR NON- AMER. (test code = 41622) 99 ML/MIN/1.73 CALC BUN/CREAT (test code = 2235) 23 RATIO SODIUM (test code = 2231) 142 MEQ/L POTASSIUM (test code = 2228) 4.2 MEQ/L CHLORIDE (test code = 2215) 97 MEQ/L CARBON DIOXIDE (test code = 2206) 29 MEQ/L CALCIUM (test code = 2209) 9.7 MG/DL PROTEIN, TOTAL (test code = 2229) 7.8 G/DL ALBUMIN (test code = 2201) 5.2 G/DL CALC GLOBULIN (test code = 2240) 2.6 G/DL CALC A/G RATIO (test code = 2234) 2.0 RATIO BILIRUBIN, TOTAL (test code = 2207) 0.4 MG/DL ALKALINE PHOSPHATASE (test code = 2204) 88 U/L AST (test code = 2218) 47 U/L ALT (test code = 2219) 67 U/L LIPID [id number] 00:00:00* Test Item Value Reference Range Interpretation Comme nts CHOLESTEROL (test code = 2210) 198 MG/DL TRIGLYCERIDES (test code = 2232) 120 MG/DL HDL CHOLESTEROL (test code = 2220) 77 MG/DL CALC LDL CHOL (test code = 2237) 97 MG/DL RISK RATIO LDL/HDL (test cod e = 2238) 1.26 RATIO LIPID [id number] 00:00:00* Test Item Value Reference Range Interpretation Comme nts CHOLESTEROL (test code = 2210) 198 MG/DL TRIGLYCERIDES (test code = 2232) 120 MG/DL HDL CHOLESTEROL (test code = 2220) 77 MG/DL CALC LDL CHOL (test code = 2237) 97 MG/DL RISK RATIO LDL/HDL (test cod e = 2238) 1.26 RATIO THYROID II PROFILE (T3U, T4, T7, TSH)2017-04-14 00:00:00* Test Item Value Reference Range Interpretation Comme nts T3 UPTAKE (test code = 2817) 32.0 % T4 (THYROXINE) (test code = 2819) 7.9 UG/DL CALCULATED T7 (FTI) (test co de = 2820) 2.53 TSH (test code = 2821) 2.270 UIU/ML THYROID II PROFILE (T3U, T4, T7, TSH)2017-04-14 00:00:00* Test Item Value Reference Range Interpretation Comme nts T3 UPTAKE (test code = 2817) 32.0 % T4 (THYROXINE) (test code = 2819) 7.9 UG/DL CALCULATED T7 (FTI) (test co de = 2820) 2.53 TSH (test code = 2821) 2.270 UIU/ML COMPREHENSIVE METABOLIC [id number] 00:00:00* Test Item Value Reference Range Interpretation Comme nts GLUCOSE (test code = 2217) 94 MG/DL BUN (test code = 2208) 18 MG/DL CREATININE (test code = 2214) 0.83 MG/DL eGFR AMER. (test cod e = 83849) 89 ML/MIN/1.73 eGFR NON- AMER. (test code = 90275) 77 ML/MIN/1.73 CALC BUN/CREAT (test code = 2235) 22 RATIO SODIUM (test code = 2231) 146 MEQ/L POTASSIUM (test code = 2228) 4.3 MEQ/L CHLORIDE (test code = 2215) 101 MEQ/L CARBON DIOXIDE (test code = 2206) 19 MEQ/L CALCIUM (test code = 2209) 10.3 MG/DL PROTEIN, TOTAL (test code = 2229) 7.7 G/DL ALBUMIN (test code = 2201) 4.8 G/DL CALC GLOBULIN (test code = 2240) 2.9 G/DL CALC A/G RATIO (test code = 2234) 1.7 RATIO BILIRUBIN, TOTAL (test code = 2207) 0.2 MG/DL ALKALINE PHOSPHATASE (test code = 2204) 92 U/L AST (test code = 221) 28 U/L ALT (test code = 2219) 30 U/L LIPID [id number] 00:00:00* Test Item Value Reference Range Interpretation Comme nts CHOLESTEROL (test code = 2210) 252 MG/DL TRIGLYCERIDES (test code = 2232) 294 MG/DL HDL CHOLESTEROL (test code = 2220) 61 MG/DL CALC LDL CHOL (test code = 2237) 132 MG/DL RISK RATIO LDL/HDL (test cod e = 2238) 2.17 RATIO [id number] 00:00:00* Test Item Value Reference Range Interpretation Comme nts TSH (test code = 2821) 4.270 UIU/ML [id number] 00:00:00* Test Item Value Reference Range Interpretation Comme nts TSH (test code = 2821) 4.270 UIU/ML COMPREHENSIVE METABOLIC [id number] 00:00:00* Test Item Value Reference Range Interpretation Comme nts GLUCOSE (test code = 2217) 94 MG/DL BUN (test code = 2208) 18 MG/DL CREATININE (test code = 2214) 0.83 MG/DL eGFR AMER. (test cod e = 32208) 89 ML/MIN/1.73 eGFR NON- AMER. (test code = 93517) 77 ML/MIN/1.73 CALC BUN/CREAT (test code = 2235) 22 RATIO SODIUM (test code = 2231) 146 MEQ/L POTASSIUM (test code = 2228) 4.3 MEQ/L CHLORIDE (test code = 2215) 101 MEQ/L CARBON DIOXIDE (test code = 2206) 19 MEQ/L CALCIUM (test code = 2209) 10.3 MG/DL PROTEIN, TOTAL (test code = 2229) 7.7 G/DL ALBUMIN (test code = 2201) 4.8 G/DL CALC GLOBULIN (test code = 2240) 2.9 G/DL CALC A/G RATIO (test code = 2234) 1.7 RATIO BILIRUBIN, TOTAL (test code = 2207) 0.2 MG/DL ALKALINE PHOSPHATASE (test code = 2204) 92 U/L AST (test code = 2218) 28 U/L ALT (test code = 2219) 30 U/L COMPREHENSIVE METABOLIC [id number] 00:00:00* Test Item Value Reference Range Interpretation Comme nts GLUCOSE (test code = 2217) 94 MG/DL BUN (test code = 2208) 18 MG/DL CREATININE (test code = 2214) 0.83 MG/DL eGFR AMER. (test cod e = 17445) 89 ML/MIN/1.73 eGFR NON- AMER. (test code = 07256) 77 ML/MIN/1.73 CALC BUN/CREAT (test code = 2235) 22 RATIO SODIUM (test code = 2231) 146 MEQ/L POTASSIUM (test code = 2228) 4.3 MEQ/L CHLORIDE (test code = 2215) 101 MEQ/L CARBON DIOXIDE (test code = 2206) 19 MEQ/L CALCIUM (test code = 2209) 10.3 MG/DL PROTEIN, TOTAL (test code = 2229) 7.7 G/DL ALBUMIN (test code = 2201) 4.8 G/DL CALC GLOBULIN (test code = 2240) 2.9 G/DL CALC A/G RATIO (test code = 2234) 1.7 RATIO BILIRUBIN, TOTAL (test code = 2207) 0.2 MG/DL ALKALINE PHOSPHATASE (test code = 2204) 92 U/L AST (test code = 2218) 28 U/L ALT (test code = 2219) 30 U/L LIPID [id number] 00:00:00* Test Item Value Reference Range Interpretation Comme nts CHOLESTEROL (test code = 2210) 252 MG/DL TRIGLYCERIDES (test code = 2232) 294 MG/DL HDL CHOLESTEROL (test code = 2220) 61 MG/DL CALC LDL CHOL (test code = 2237) 132 MG/DL RISK RATIO LDL/HDL (test cod e = 2238) 2.17 RATIO LIPID [id number] 00:00:00* Test Item Value Reference Range Interpretation Comme nts CHOLESTEROL (test code = 2210) 252 MG/DL TRIGLYCERIDES (test code = 2232) 294 MG/DL HDL CHOLESTEROL (test code = 2220) 61 MG/DL CALC LDL CHOL (test code = 2237) 132 MG/DL RISK RATIO LDL/HDL (test cod e = 2238) 2.17 RATIO [id number] 00:00:00* Test Item Value Reference Range Interpretation Comme nts TSH (test code = 2821) 4.270 UIU/ML [id number] 00:00:00* Test Item Value Reference Range Interpretation Comme nts TSH (test code = 2821) 4.270 UIU/ML [id number] 00:00:00* Test Item Value Reference Range Interpretation Comme nts TSH (test code = 2821) 4.270 UIU/ML HEMOGLOBIN [id number] 00:00:00* Test Item Value Reference Range Interpretation Comme nts HEMOGLOBIN A1c (test code = 21222) 8.7 % HEMOGLOBIN [id number] 00:00:00* Test Item Value Reference Range Interpretation Comme nts HEMOGLOBIN A1c (test code = 05812) 8.7 % HEMOGLOBIN [id number] 00:00:00* Test Item Value Reference Range Interpretation Comme nts HEMOGLOBIN A1c (test code = 37646) 8.7 % HEMOGLOBIN [id number] 00:00:00* Test Item Value Reference Range Interpretation Comme nts HEMOGLOBIN A1c (test code = 67100) 8.7 % HEMOGLOBIN [id number] 00:00:00* Test Item Value Reference Range Interpretation Comme nts HEMOGLOBIN A1c (test code = 20250) 8.7 % HEMOGLOBIN [id number] 00:00:00* Test Item Value Reference Range Interpretation Comme nts HEMOGLOBIN A1c (test code = 80535) 11.9 % HEMOGLOBIN [id number] 00:00:00* Test Item Value Reference Range Interpretation Comme nts HEMOGLOBIN A1c (test code = 12894) 11.9 % [id number] 00:00:00* Test Item Value Reference Range Interpretation Comme nts TSH (test code = 2821) 2.62 UIU/ML [id number] 00:00:00* Test Item Value Reference Range Interpretation Comme nts TSH (test code = 2821) 2.62 UIU/ML HEMOGLOBIN [id number] 00:00:00* Test Item Value Reference Range Interpretation Comme nts HEMOGLOBIN A1c (test code = 45897) 11.9 % HEMOGLOBIN [id number] 00:00:00* Test Item Value Reference Range Interpretation Comme nts HEMOGLOBIN A1c (test code = 06727) 11.9 % HEMOGLOBIN [id number] 00:00:00* Test Item Value Reference Range Interpretation Comme nts HEMOGLOBIN A1c (test code = 26134) 11.9 % [id number] 00:00:00* Test Item Value Reference Range Interpretation Comme nts TSH (test code = 2821) 2.62 UIU/ML [id number] 00:00:00* Test Item Value Reference Range Interpretation Comme nts TSH (test code = 2821) 2.62 UIU/ML [id number] 00:00:00* Test Item Value Reference Range Interpretation Comme nts TSH (test code = 2821) 2.62 UIU/ML HEMOGLOBIN [id number] 00:00:00* Test Item Value Reference Range Interpretation Comme nts HEMOGLOBIN A1c (test code = 72241) 8.2 % HEMOGLOBIN [id number] 00:00:00* Test Item Value Reference Range Interpretation Comme nts HEMOGLOBIN A1c (test code = 06562) 8.2 % [id number] 00:00:00* Test Item Value Reference Range Interpretation Comme nts TSH (test code = 2821) 1.3 UIU/ML [id number] 00:00:00* Test Item Value Reference Range Interpretation Comme nts TSH (test code = 2821) 1.3 UIU/ML HEMOGLOBIN [id number] 00:00:00* Test Item Value Reference Range Interpretation Comme nts HEMOGLOBIN A1c (test code = 28936) 8.2 % HEMOGLOBIN [id number] 00:00:00* Test Item Value Reference Range Interpretation Comme nts HEMOGLOBIN A1c (test code = 06294) 8.2 % HEMOGLOBIN [id number] 00:00:00* Test Item Value Reference Range Interpretation Comme nts HEMOGLOBIN A1c (test code = 23264) 8.2 % [id number] 00:00:00* Test Item Value Reference Range Interpretation Comme nts TSH (test code = 2821) 1.3 UIU/ML [id number] 00:00:00* Test Item Value Reference Range Interpretation Comme nts TSH (test code = 2821) 1.3 UIU/ML [id number] 00:00:00* Test Item Value Reference Range Interpretation Comme nts TSH (test code = 2821) 1.3 UIU/ML ACUTE HEPATITIS [id number] 00:00:00* Test Item Value Reference Range Interpretation Comme nts HEPATITIS A IgM (test code = 93389) NON-REACTIVE HEPATITIS B CORE IgM (test c ode = 4644) NON-REACTIVE HEPATITIS B SURF AG (test co de = 2739) NON-REACTIVE HEPATITIS C ANTIBODY (test c ode = 4675) NON-REACTIVE INTERPRETATION HEPATITIS A: (test code = 2552) (NOTE) INTERPRETATION HEPATITIS B: (test code = 13734) (NOTE) INTERPRETATION HEPATITIS C: (test code = 00033) (NOTE) ACUTE HEPATITIS [id number] 00:00:00* Test Item Value Reference Range Interpretation Comme nts HEPATITIS A IgM (test code = 15852) NON-REACTIVE HEPATITIS B CORE IgM (test c ode = 4644) NON-REACTIVE HEPATITIS B SURF AG (test co de = 2739) NON-REACTIVE HEPATITIS C ANTIBODY (test c ode = 4675) NON-REACTIVE INTERPRETATION HEPATITIS A: (test code = 2552) (NOTE) INTERPRETATION HEPATITIS B: (test code = 57132) (NOTE) INTERPRETATION HEPATITIS C: (test code = 19399) (NOTE) ACUTE HEPATITIS [id number] 00:00:00* Test Item Value Reference Range Interpretation Comme nts HEPATITIS A IgM (test code = 25941) NON-REACTIVE HEPATITIS B CORE IgM (test c ode = 4644) NON-REACTIVE HEPATITIS B SURF AG (test co de = 2739) NON-REACTIVE HEPATITIS C ANTIBODY (test c ode = 4675) NON-REACTIVE INTERPRETATION HEPATITIS A: (test code = 2552) (NOTE) INTERPRETATION HEPATITIS B: (test code = 36527) (NOTE) INTERPRETATION HEPATITIS C: (test code = 14393) (NOTE) COMPREHENSIVE METABOLIC [id number] 00:00:00* Test Item Value Reference Range Interpretation Comme nts GLUCOSE (test code = 2217) 111 MG/DL BUN (test code = 2208) 12 MG/DL CREATININE (test code = 2214) 0.47 MG/DL eGFR AMER. (test cod e = 83019) 126 ML/MIN/1.73 eGFR NON- AMER. (test code = 25432) 109 ML/MIN/1.73 CALCULATED BUN/CREAT (test code = 2235) 26 RATIO SODIUM (test code = 2231) 137 MEQ/L POTASSIUM (test code = 2228) 4.2 MEQ/L CHLORIDE (test code = 2215) 100 MEQ/L CARBON DIOXIDE (test code = 2206) 25 MEQ/L CALCIUM (test code = 2209) 9.5 MG/DL PROTEIN, TOTAL (test code = 2229) 7.3 G/DL ALBUMIN (test code = 2201) 4.5 G/DL CALCULATED GLOBULIN (test code = 2240) 2.8 G/DL CALCULATED A/G RATIO (test code = 2234) 1.6 RATIO BILIRUBIN, TOTAL (test code = 2207) 0.3 MG/DL ALKALINE PHOSPHATASE (test code = 2204) 81 U/L SGOT (AST) (test code = 2218) 56 U/L SGPT (ALT) (test code = 2219) 59 U/L HEMOGLOBIN [id number] 00:00:00* Test Item Value Reference Range Interpretation Comme nts HEMOGLOBIN A1c (test code = 28249) 7.7 % HEMOGLOBIN [id number] 00:00:00* Test Item Value Reference Range Interpretation Comme nts HEMOGLOBIN A1c (test code = 59505) 7.7 % [id number] 00:00:00* Test Item Value Reference Range Interpretation Comme nts TSH (test code = 2821) 2.1 UIU/ML [id number] 00:00:00* Test Item Value Reference Range Interpretation Comme nts TSH (test code = 2821) 2.1 UIU/ML COMPREHENSIVE METABOLIC [id number] 00:00:00* Test Item Value Reference Range Interpretation Comme nts GLUCOSE (test code = 2217) 111 MG/DL BUN (test code = 2208) 12 MG/DL CREATININE (test code = 2214) 0.47 MG/DL eGFR AMER. (test cod e = 14345) 126 ML/MIN/1.73 eGFR NON- AMER. (test code = 30945) 109 ML/MIN/1.73 CALCULATED BUN/CREAT (test code = 2235) 26 RATIO SODIUM (test code = 2231) 137 MEQ/L POTASSIUM (test code = 2228) 4.2 MEQ/L CHLORIDE (test code = 2215) 100 MEQ/L CARBON DIOXIDE (test code = 2206) 25 MEQ/L CALCIUM (test code = 2209) 9.5 MG/DL PROTEIN, TOTAL (test code = 2229) 7.3 G/DL ALBUMIN (test code = 2201) 4.5 G/DL CALCULATED GLOBULIN (test code = 2240) 2.8 G/DL CALCULATED A/G RATIO (test code = 2234) 1.6 RATIO BILIRUBIN, TOTAL (test code = 2207) 0.3 MG/DL ALKALINE PHOSPHATASE (test code = 2204) 81 U/L SGOT (AST) (test code = 2218) 56 U/L SGPT (ALT) (test code = 2219) 59 U/L COMPREHENSIVE METABOLIC [id number] 00:00:00* Test Item Value Reference Range Interpretation Comme nts GLUCOSE (test code = 2217) 111 MG/DL BUN (test code = 2208) 12 MG/DL CREATININE (test code = 2214) 0.47 MG/DL eGFR AMER. (test cod e = 13652) 126 ML/MIN/1.73 eGFR NON- AMER. (test code = 44317) 109 ML/MIN/1.73 CALCULATED BUN/CREAT (test code = 2235) 26 RATIO SODIUM (test code = 2231) 137 MEQ/L POTASSIUM (test code = 2228) 4.2 MEQ/L CHLORIDE (test code = 2215) 100 MEQ/L CARBON DIOXIDE (test code = 2206) 25 MEQ/L CALCIUM (test code = 2209) 9.5 MG/DL PROTEIN, TOTAL (test code = 2229) 7.3 G/DL ALBUMIN (test code = 2201) 4.5 G/DL CALCULATED GLOBULIN (test code = 2240) 2.8 G/DL CALCULATED A/G RATIO (test code = 2234) 1.6 RATIO BILIRUBIN, TOTAL (test code = 2207) 0.3 MG/DL ALKALINE PHOSPHATASE (test code = 2204) 81 U/L SGOT (AST) (test code = 2218) 56 U/L SGPT (ALT) (test code = 2219) 59 U/L HEMOGLOBIN [id number] 00:00:00* Test Item Value Reference Range Interpretation Comme nts HEMOGLOBIN A1c (test code = 03118) 7.7 % HEMOGLOBIN [id number] 00:00:00* Test Item Value Reference Range Interpretation Comme nts HEMOGLOBIN A1c (test code = 11772) 7.7 % HEMOGLOBIN [id number] 00:00:00* Test Item Value Reference Range Interpretation Comme nts HEMOGLOBIN A1c (test code = 13602) 7.7 % [id number] 00:00:00* Test Item Value Reference Range Interpretation Comme nts TSH (test code = 2821) 2.1 UIU/ML [id number] 00:00:00* Test Item Value Reference Range Interpretation Comme nts TSH (test code = 2821) 2.1 UIU/ML [id number] 00:00:00* Test Item Value Reference Range Interpretation Comme nts TSH (test code = 2821) 2.1 UIU/ML HEMOGLOBIN [id number] 00:00:00* Test Item Value Reference Range Interpretation Comme nts HEMOGLOBIN A1c (test code = 09347) 7.1 % HEMOGLOBIN [id number] 00:00:00* Test Item Value Reference Range Interpretation Comme nts HEMOGLOBIN A1c (test code = 80441) 7.1 % [id number] 00:00:00* Test Item Value Reference Range Interpretation Comme nts TSH (test code = 2821) 5.0 UIU/ML [id number] 00:00:00* Test Item Value Reference Range Interpretation Comme nts TSH (test code = 2821) 5.0 UIU/ML HEMOGLOBIN [id number] 00:00:00* Test Item Value Reference Range Interpretation Comme nts HEMOGLOBIN A1c (test code = 08445) 7.1 % HEMOGLOBIN [id number] 00:00:00* Test Item Value Reference Range Interpretation Comme nts HEMOGLOBIN A1c (test code = 63194) 7.1 % HEMOGLOBIN [id number] 00:00:00* Test Item Value Reference Range Interpretation Comme nts HEMOGLOBIN A1c (test code = 75976) 7.1 % [id number] 00:00:00* Test Item Value Reference Range Interpretation Comme nts TSH (test code = 2821) 5.0 UIU/ML [id number] 00:00:00* Test Item Value Reference Range Interpretation Comme nts TSH (test code = 2821) 5.0 UIU/ML [id number] 00:00:00* Test Item Value Reference Range Interpretation Comme nts TSH (test code = 2821) 5.0 UIU/ML THYROID II PROFILE (T3U, T4, T7, TSH)2014-10-11 00:00:00* Test Item Value Reference Range Interpretation Comme nts T3 UPTAKE (test code = 2817) 27.4 % T4 (THYROXINE) (test code = 2819) 9.4 UG/DL CALCULATED T7 (FTI) (test co de = 2820) 2.58 TSH (test code = 2821) 2.4 UIU/ML HEMOGLOBIN [id number] 00:00:00* Test Item Value Reference Range Interpretation Comme nts HEMOGLOBIN A1c (test code = 41836) 8.0 % HEMOGLOBIN [id number] 00:00:00* Test Item Value Reference Range Interpretation Comme nts HEMOGLOBIN A1c (test code = 30852) 8.0 % THYROID II PROFILE (T3U, T4, T7, TSH)2014-10-11 00:00:00* Test Item Value Reference Range Interpretation Comme nts T3 UPTAKE (test code = 2817) 27.4 % T4 (THYROXINE) (test code = 2819) 9.4 UG/DL CALCULATED T7 (FTI) (test co de = 2820) 2.58 TSH (test code = 2821) 2.4 UIU/ML THYROID II PROFILE (T3U, T4, T7, TSH)2014-10-11 00:00:00* Test Item Value Reference Range Interpretation Comme nts T3 UPTAKE (test code = 2817) 27.4 % T4 (THYROXINE) (test code = 2819) 9.4 UG/DL CALCULATED T7 (FTI) (test co de = 2820) 2.58 TSH (test code = 2821) 2.4 UIU/ML HEMOGLOBIN [id number] 00:00:00* Test Item Value Reference Range Interpretation Comme nts HEMOGLOBIN A1c (test code = 86921) 8.0 % HEMOGLOBIN [id number] 00:00:00* Test Item Value Reference Range Interpretation Comme nts HEMOGLOBIN A1c (test code = 80410) 8.0 % HEMOGLOBIN [id number] 00:00:00* Test Item Value Reference Range Interpretation Comme nts HEMOGLOBIN A1c (test code = 68895) 8.0 % MAMMO Bilat Screen DDI Name: SHO GONZALES : 1955 [facility] SHO [facility] [address] [facility] Phys: [place] [address] : 1955 Age: 64 SEX:F Exam Date: 09/29/20 Status: REG REF Acct: [id number] Loc: [facility] Pt Unit #: [id number] Report #: [id number] CC: Kristal Mohan MD MAMMOGRAPHY REPORT Order # Category/Exam [id number] MMO/MAMMO Bilat Screen DDI ([id number]): . Results 1 Bilateral MAMMO Bilat Screen DDI. CLINICAL HISTORY: Patient is 64 years old and is seen for screening. The patient has no family history of breast cancer. The patient has no personal history of cancer. VIEWS: The views performed were: bilateral craniocaudal and bilateral mediolateral oblique. FILMS COMPARED: The present examination has been compared to prior imaging studies performed at [facility] on 07/20/2018, and at [facility] on 05/14/2014. This study has been interpreted with the assistance of computer-aided detection. MAMMOGRAM FINDINGS: There are scattered fibroglandular densities. There are no suspicious masses, suspicious calcifications, or new areas of architectural distortion. IMPRESSION: THERE IS NO MAMMOGRAPHIC EVIDENCE OF MALIGNANCY. A ROUTINE FOLLOW- UP MAMMOGRAM IN 1 YEAR IS RECOMMENDED. ACR BI-RADS Category 1 - Negative HANSA MOGRAPHY NOTE: 1. A negative mammogram report should not delay a biopsy if a dominant of clinicallysuspicious mass is present. 2. Approximately 10% to 15% of breast cancers are not detected by mammography. 3. Adenosis and dense breasts may obscure an underlying neoplasm. Reported by: HONEY GALLO MD Electonically Signed: [id number] Reported By: Deonna Gallo MD Electronically Signed Date/Time: 09/29/20 1123 Technologist: Dictated Date/Time: 09/29/20 Transcribed Date/Time: 09/29/20MAMMO Bilat Screen DDI Name: SHO GONZALES : 1955 Sex: [facility] Pt Name: SHO GONAZLES [address] [facility] Phys: [place] [address] : 1955 Age: 64 SEX:F Exam Date: 09/29/20 Status: REG REF Acct: [id number] Loc: [facility] Pt Unit #: [id number] Report #: [id number] CC: Kristal Mohan MD MAMMOGRAPHY REPORT Order # Category/Exam [id number] MMO/MAMMO Bilat Screen DDI ([id number]): . Results 1 Bilateral MAMMO Bilat Screen DDI. CLINICAL HISTORY: Patient is 64 years old and is seen for screening. The patient has no family history of breast cancer. The patient has no personal history of cancer. VIEWS: The views performed were: bilateral craniocaudal and bilateral mediolateral oblique. FILMS COMPARED: The present examination has been compared to prior imaging studies performed at [facility] on 07/20/2018, and at [facility] on 05/14/2014. This study has been interpreted with the assistance of computer-aided detection. MAMMOGRAM FINDINGS: There are scattered fibroglandular densities. There are no suspicious masses, suspicious calcifications, or new areas of architectural distortion. IMPRESSION: THERE IS NO MAMMOGRAPHIC EVIDENCE OF MALIGNANCY. A ROUTINE FOLLOW-UP MAMMOGRAM IN 1 YEAR IS RECOMMENDED. ACR BI-RADS Category 1 - Negative MAMM OGRAPHY NOTE: 1. A negative mammogram report should not delay a biopsy if a dominant of clinically suspicious mass is present. 2. Approximately 10% to 15% of breast cancers are not detected by mammography. 3. Adenosis and dense breasts may obscure an underlying neoplasm. Reported by: HONEY GALLO MD Electonically Signed: [id number] Reported By: Deonna Gallo MD Electronically Signed Date/Time: 09/29/20 1123 Technologist: Dictated Date/Time: 09/29/20 Transcribed Date/Time: 09/29/20[facility] [employer] [place] [address] : 1955 Age: 62 SEX:F [phone] Exam Date: 10/22/18 Status: REG ER Acct: [id number] Loc: ERS Pt Unit #: [id number] Report #: [id number] CC: [facility] REPORT Order # Category/Exam [id number] RAD/XR Chest 1 View Portable ([id number]): . Results Chest AP view INDICATION: Shortness of breath COMPARISON: None FINDINGS: Lungs:The lungs are clear Cardiac silhouette pulmonary vasculature:Heart size is accentuated by the exam technique. Pulmonary vasculature appears within normal limits. Pleural spaces:No pleural effusion or pneumothorax is demonstrated. Upper abdomen:No abnormality seen. Osseous structures: No acute osseous abnorma lity. Additional findings:None. IMPRESSION: No acute cardiopulmonary abnormality. Reported By: Bryan Mann MD Electronically Signed Date/Time: 10/22/18 1255 Technologist: KASANDRA Dictated Date/Time: 10/22/18 1254 Transcribed Date/Time: CT Abdomen Pelvis [facility] Pt Name: SHO GONZALES Webupo Phys: [place] [address] : 1955 Age: 62 SEX:F [phone] Exam Date: 10/22/18 Status: REG ER Acct: [id number] Loc: ERS Pt Unit #: [id number] Report #: [id number] CC: ED TEMP PROVIDERAnnetta Green DO CAT SCAN REPORT Order # Category/Exam [id number] CT/CT Abdomen Pelvis W Con ([id number]): . Results CT OF THE ABDOMEN AND PELVIS WITH IV CONTRAST INDICATION: Right lower quadrant abdominal pain COMPARISON: None FINDINGS: ABDOMEN: Lung bases: Clear Liver: Fatty infiltration Gallbladder: Normal appearing. Pancreas: Normal. Adrenal glands: Normal. Spleen: Normal. Kidneys: Normal.Retroperitoneum of the upper abdomen: There are moderate vascular calcifications seen involving thevisualized vasculature. No pathologically enlarged lymph nodes are evident. Pelvis: Small and largebowel: There is a normal appendix in the right lower quadrant measuring 5 mm. There is a prominent amount of retained stool within the colon. Bladder: Normal. Rectal and perirectal soft tissues:Normal. Reproductive structures: Surgically absent Free fluid in pelvis: No free fluid is evident. Lymphadenopathy pelvis: No lymphadenopathy is evident. Osseous structures: No acute osseous abnormality. No destructive osteolytic or osteoblastic lesion is identified. There is scattered degenerative and osteoarthritic changes. IMPRESSION: 1. Prominent amount retained stool within the colon 2. Fatty infiltration of the liver 3. Other chronic findings as above Reported By: Brayn Mann MD Electronically Signed Date/Time: 10/22/18 1443 Technologist: [email or web address] Dictated Date/Time: 10/22/18 1435 Transcribed Date/Time:MAMMO Bilat [facility] Pt Name: SHO GONZALES [facility] [address] Phys: [place] [address] : 1955 Age: 62 SEX:[phone] Exam Date: 07/20/18 Status: REG REF Acct: [id number] Loc: [facility]MAMMO Pt Unit #: [id number] Report #: [id number] CC: KRISTAL MOHAN MD MAMMOGRAPHY REPORT Order # Category/Exam [id number] MMO/MAMMO Bilat Screen DDI ([id number]): . Results Bilateral MAMMO Bilat Screen DDI. CLINICAL HISTORY: Patient is 62 years old and is seen for screening. The patient has no family history of breast cancer. The patient has no personal historyof cancer. VIEWS: The views performed were: bilateral craniocaudal and bilateral mediolateral oblique. FILMS COMPARED: The present examination has been compared to a prior imaging study performed at [facility] on 05/14/2014. This study has been interpreted with the assistance of computer-aided detection. MAMMOGRAM FINDINGS: There are scattered fibroglandular densities. There are no suspicious masses, suspicious calcifications, or new areas of architectural distortion. IMPRESSION: THERE IS NO MAMMOGRAPHIC EVIDENCE OF MALIGNANCY. A ROUTINE FOLLOW-UP MAMMOGRAM IN 1 YEAR IS RECOMMENDED. ACR BI-RADS Category 1 - Negative MAMMOGRAPHY NOTE: 1. A negative mammogram report should not delay a biopsy if a dominant of clinically suspicious mass is present. 2. Approximately 10% to 15% of breast cancers are not detected by mammography. 3. Adenosis and dense breasts may obscure an underlying neoplasm. Reported By: William Berg MD Electronically Signed Date/Time: 07/26/18 0813 Technologist: KARTHIK Dictated Date/Time: 07/26/18 Transcribed Date/Time: 07/20/18
[2023-05-15 09:06] LABS: Absolute Lymphocytes (CBC) 2.9 K/uL (0.7-4.9); Hematocrit 42.5 % (36.0-45.0); Lymphocytes % 35.3 % (15.3-44.8); MCV 95.7 fL (80-100); MPV 7.7 fL (7.6-11.3); Platelets 258 thou/uL (152-406); RBC Red Blood Cell Count 4.44 M/uL (3.86-4.86)
[2023-05-15 09:25] LABS: Albumin 4.4 g/dL (3.4-5.0); Bilirubin Direct 0.2 mg/dL (0-0.2); Bilirubin Indirect, Calculated 0.7 mg/dL (0.2-0.8); Bilirubin Total 0.9 mg/dL (0.2-1.0); Potassium 3.7 mEq/L (3.5-5.1); Protein, Total 8.4 g/dL (6.4-8.2); Troponin High Sensitivity 4.1 pg/mL (<58.9)
--- NOTE | 2023-05-15 09:30 | ER ---
Nurse's Notes [facility] Name: Erica Marrero Age: 67 yrs Sex: Female : 1955 Arrival Date: 05/15/2023 Time: 08:07 Bed 18 Private MD: Diagnosis: Left arm pain, insomnia, brian Presentation: 05/15 08:18 Chief complaint: Patient states: STATES HAS DIFFICULTY SLEEPING X 1 MONTH AND ARM PAIN. db STATES IS DEPRESSED AND BIPOLAR AND MEDICATIONS ARE NOT HELPING. Coronavirus screen: Vaccine status: Patient reports receiving the 2nd dose of the covid vaccine. Client denies travel out of the [place] in the last 14 days. At this time, the client does not indicate any symptoms associated with coronavirus-19. Ebola Screen: Patient negative for fever greater than or equal to 101.5 degrees Fahrenheit, and additional compatible Ebola Virus Disease symptoms Patient denies exposure to infectious person. Patient denies travel to an Ebola-affected area in the 21 days before illness onset. No symptoms or risks identified at this time. Initial Sepsis Screen: Does the patient meet any 2 criteria? HR > 90 bpm. Does the patient have a suspected source of infection? No. Patient's initial sepsis screen is negative. Risk Assessment: Do you want to hurt yourself or someone else? Patient reports no desire to harm self or others. Onset of symptoms. Onset of symptoms was April 14, 2023. 08:18 Method Of Arrival: Ambulatory db 08:18 Acuity: JAYLON 3 db Triage Assessment: 08:37 General: Appears in no apparent distress. comfortable, Behavior is calm, cooperative. db Neuro: Level of Consciousness is awake, alert, obeys commands, Oriented to person, place, time, situation. Respiratory: Airway is patent Respiratory effort is even, unlabored, Respiratory pattern is regular, symmetrical. Historical: - Allergies: 08:37 Dairy; db 08:37 Eggs; db 08:37 Iodine; db 08:37 PORK/PORCINE PRODUCT DERIVATIVES; db 08:37 rice; db 08:37 SEAFOOD; db - Home Meds: 08:37 Trazodone 200 MG Oral [Active]; db - PMHx: 08:37 Bipolar disorder; COPD; Depression; Diabetes - NIDDM; High Cholesterol; insulin; db Thyroid problem; - Immunization history:: Adult Immunizations unknown. - Social history:: Smoking status: Patient denies any tobacco usage or history of. Screenin:[address] [facility] ED Fall Risk Assessment (Adult) History of falling in the last 3 months, db including since admission No falls in past 3 months (0 pts) Confusion or Disorientation No (0 pts) Score/Fall Risk Level 0 - 2 = Low Risk Oriented to surroundings, Maintained a safe environment. Abuse screen: Denies threats or abuse. Denies injuries from another. Nutritional screening: No deficits noted. Tuberculosis screening: No symptoms or risk factors identified. Assessment: 08:20 Reassessment: Patient appears in no apparent distress at this time. Patient and/or db family updated on plan of care and expected duration. Pain level reassessed. Patient is alert, oriented x 3, equal unlabored respirations, skin warm/dry/pink. General: Appears in no apparent distress. comfortable, Behavior is calm, cooperative. Neuro: Level of Consciousness is awake, alert, obeys commands, Oriented to person, place, time, situation. Respiratory: Airway is patent Respiratory effort is even, unlabored, Respiratory pattern is regular, symmetrical. Vital Signs: 08:18 BP 164 / 97; Pulse 110; Resp 18; Temp 98; Pulse Ox 97% ; Weight 68.95 kg; Height 5 ft. db 3 in. ; 08:30 BP 148 / 87; Pulse 99; Resp 18; Pulse Ox 97% on R/A; db 09:00 BP 129 / 80; Pulse 99; Resp 18; Pulse Ox 96% on R/A; db 08:18 Body Mass Index 26.93 (68.95 kg, 160.02 cm) db ED Course: 08:10 Patient arrived in ED. mg5 08:20 Patient has correct armband on for positive identification. Provided Education on: db DISCHARGE. 08:20 No provider procedures requiring assistance completed. IV discontinued, intact, db bleeding controlled, No redness/swelling at site. 08:25 Jami Noland, LYSSA is Primary Nurse. db 08:28 Yamileth Collins MD is Attending Physician. sp3 08:37 Triage completed. db 08:37 Arm band placed on Patient placed in an exam room. db 08:49 Initial lab(s) drawn, by me, sent to lab. EKG done, by ED staff. Inserted saline lock: [id number] 22 gauge in right antecubital area, using aseptic technique. 09:16 XRAY Chest (1 view) In Process Unspecified. EDMS Administered Medications: No medications were administered Medication: 08:20 VIS not applicable for this client. db Outcome: 08:20 Discharged to home ambulatory, db 08:20 Condition: stable 08:20 Discharge instructions given to patient, Instructed on discharge instructions, follow up and referral plans. 09:29 Discharge ordered by MD. [email or web address] 10:23 Patient left the ED. db Signatures: Dispatcher [employer] EDMS Yamileth Collins MD MD sp3 Jami Noland, RN RN Uyen Parish mg5 Cody Alvarez [email or web address]
--- NOTE | 2023-05-15 09:30 | EDPHYS ---
Physician Documentation [facility] Name: Erica Marrero Age: 67 yrs Sex: Female : 1955 Arrival Date: 05/15/2023 Time: 08:07 Bed 18 Private MD: ED Physician Yamileth Collins HPI: 05/15 08:33 This 67 yrs old Female presents to ER via Unassigned with complaints of Arm Pain, sp3 Havent Slept In a Month. 08:33 67-year-old female with a history of bipolar disease, diabetes, currently on multiple sp3 medications including trazodone to help her sleep as prescribed by [facility] now presents to the ED with chief complaint "I have not slept well in a month and then yesterday I was having left arm pain". Patient states that the pain is now resolved. She denies any chest pain, shortness of breath, back pain, abdominal pain, epigastric pain, nausea, vomiting, diarrhea, jaw pain, or any other anginal equivalents. Remainder of review of systems negative.. Historical: - Allergies: 08:37 Dairy; db 08:37 Eggs; db 08:37 Iodine; db 08:37 PORK/PORCINE PRODUCT DERIVATIVES; db 08:37 rice; db 08:37 SEAFOOD; db - Home Meds: 08:37 Trazodone 200 MG Oral [Active]; db - PMHx: 08:37 Bipolar disorder; COPD; Depression; Diabetes - NIDDM; High Cholesterol; insulin; db Thyroid problem; - Immunization history:: Adult Immunizations unknown. - Social history:: Smoking status: Patient denies any tobacco usage or history of. ROS: 08:34 Constitutional: Negative for fever, chills, and weight loss, Eyes: Negative for injury, sp3 pain, redness, and discharge, ENT: Negative for injury, pain, and discharge, Neck: Negative for injury, pain, and swelling, Respiratory: Negative for shortness of breath, cough, wheezing, and pleuritic chest pain, Abdomen/GI: Negative for abdominal pain, nausea, vomiting, diarrhea, and constipation, Back: Negative for injury and pain, Skin: Negative for injury, rash, and discoloration, Neuro: Negative for headache, weakness, numbness, tingling, and seizure, Allergy/Immunology: Negative for hives, rash, and allergies, Endocrine: Negative for neck swelling, polydipsia, polyuria, polyphagia, and marked weight changes, Hematologic/Lymphatic: Negative for swollen nodes, abnormal bleeding, and unusual bruising, 08:34 All other systems are negative, Exam: 08:34 Constitutional: This is a well developed, well nourished patient who is awake, alert, sp3 and in no acute distress. Head/Face: Normocephalic, atraumatic. Eyes: Pupils equal round and reactive to light, extra-ocular motions intact. Lids and lashes normal. Conjunctiva and sclera are non-icteric and not injected. Cornea within normal limits. Periorbital areas with no swelling, redness, or edema. ENT: Nares patent. No nasal discharge, no septal abnormalities noted. External auditory canals are clear. Oropharynx with no redness, swelling, or masses, exudates, or evidence of obstruction, uvula midline. Mucous membranes moist. Neck: Trachea midline, no thyromegaly or masses palpated, and no cervical lymphadenopathy. Supple, full range of motion without nuchal rigidity, or vertebral point tenderness. No Meningismus. Chest/axilla: Normal chest wall appearance and motion. Nontender with no deformity. No lesions are appreciated. Cardiovascular: Regular rate and rhythm with a normal S1 and S2. No gallops, murmurs, or rubs. Normal PMI, no JVD. No pulse deficits. Respiratory: Lungs have equal breath sounds bilaterally, clear to auscultation and percussion. No rales, rhonchi or wheezes noted. No increased work of breathing, no retractions or nasal flaring. Abdomen/GI: Soft, non-tender, with normal bowel sounds. No distension or tympany. No guarding or rebound. No evidence of tenderness throughout. Back: No spinal tenderness. No costovertebral tenderness. Full range of motion. Skin: Warm, dry with normal turgor. Normal color with no rashes, no lesions, and no evidence of cellulitis. MS/ Extremity: Pulses equal, no cyanosis. Neurovascular intact. Full, normal range of motion. Neuro: Awake and alert, GCS 15, oriented to person, place, time, and situation. Cranial nerves II-XII grossly intact. Motor strength 5/5 in all extremities. Sensory grossly intact. Cerebellar exam normal. Normal gait. Psych: Awake, alert, with orientation to person, place and time. Behavior, mood, and affect are within normal limits. 09:14 ECG was reviewed by the Attending Physician. EKG demonstrates normal sinus rhythm at sp3 100 bpm with normal intervals, normal QRS, normal axis, normal ST's ST segments without evidence of acute ischemia. Vital Signs: 08:18 BP 164 / 97; Pulse 110; Resp 18; Temp 98; Pulse Ox 97% ; Weight 68.95 kg; Height 5 ft. db 3 in. ; 08:30 BP 148 / 87; Pulse 99; Resp 18; Pulse Ox 97% on R/A; db 09:00 BP 129 / 80; Pulse 99; Resp 18; Pulse Ox 96% on R/A; db 08:18 Body Mass Index 26.93 (68.95 kg, 160.02 cm) db MDM: 08:35 Data reviewed: vital signs, nurses notes, lab test result(s), EKG, radiologic studies. 3 ED course: 67-year-old female with left arm pain now resolved and insomnia for 1 month. Differential diagnosis includes manic episode, acute coronary syndrome, musculoskeletal pain or injury, rhabdomyolysis, other chest process. I am not highly suspicious for sepsis, shock, aortic pathology, or any other critical process at this time. Workup will include chest x-ray, EKG, laboratory values including troponin and CK. If workup is negative, I have advised patient that she needs to follow back up with [facility] for any medication adjustments. She is currently not psychotic and not having any SI/HI symptoms.. 08:41 Patient medically screened. 3 09:28 ED course: Cardiac workup is negative. Patient will be safe for discharge home at this 3 time with follow-up with [facility].. 05/15 08:32 Order name: Basic Metabolic Panel; Complete Time: 09:27 3 05/15 08:32 Order name: CBC with Diff; Complete Time: 09:27 3 05/15 08:32 Order name: LFT's; Complete Time: 09:27 3 05/15 08:32 Order name: Troponin HS; Complete Time: 09:27 3 05/15 08:32 Order name: CK; Complete Time: 09:27 3 05/15 08:32 Order name: XRAY Chest (1 view) 3 05/15 08:32 Order name: EKG; Complete Time: 08:33 sp3 05/15 08:32 Order name: Cardiac monitoring; Complete Time: 08:55 sp3 05/15 08:32 Order name: EKG - Nurse/Tech; Complete Time: 08:49 sp3 05/15 08:32 Order name: IV Saline Lock; Complete Time: 08:41 sp3 05/15 08:32 Order name: Labs collected and sent; Complete Time: 08:41 sp3 05/15 08:32 Order name: O2 Sat Monitoring; Complete Time: 08:41 sp3 Administered Medications: No medications were administered Disposition Summary: 05/15/23 09:29 Discharge Ordered Notes: Location: Home sp3 Condition: Stable sp3 Diagnosis - Left arm pain, insomnia, brian sp3 Followup: sp3 - With: Private Physician - When: Upon discharge from the Emergency Department - Reason: Continuance of care Discharge Instructions: - Discharge Summary Sheet sp3 - Insomnia sp3 - Brian sp3 Forms: - Medication Reconciliation Form sp3 - Thank You Letter sp3 - Antibiotic Education sp3 - Prescription Opioid Use sp3 - Patient Portal Instructions sp3 - Leadership Thank You Letter sp3 Signatures: Dispatcher [employer] EDMS Yamileth Collins MD MD sp3 Jami Noland RN RN db Corrections: (The following items were deleted from the chart) 08:35 08:33 67-year-old female with a history of bipolar disease currently on multiple sp3 medications including trazodone to help her sleep as prescribed by [facility] now presents to the ED with chief complaint "I have not slept well in a month and then yesterday I was having left arm pain". Patient states that the pain is now resolved. She denies any chest pain, shortness of breath, back pain, abdominal pain, epigastric pain, nausea, vomiting, diarrhea, jaw pain, or any other anginal equivalents. Remainder of review of systems negative.. sp3
--- NOTE | 2023-05-15 10:22 | RAD REPORT ---
EXAM DESCRIPTION: Vikram Single View05/15/2023 9:14 am CLINICAL HISTORY: Chest pain COMPARISON: 2001 FINDINGS: 1.5 centimeter oval opacity overlies the mid right lung. The remainder of the lungs appear clear of acute infiltrate. The heart is normal size IMPRESSION: 1.5 centimeter oval opacity overlies the mid right lung. This could represent artifact o r pulmonary nodule. PA and lateral chest series recommended
[2023-05-15 10:34] VITALS: BP 129/80; TEMP 98; O2SAT 96
--- NOTE | 2023-05-16 15:01 | EKG ---
Test Date: 2023-05-15 Test Time: 08:49:04 Small Business Representative: EVELIN MEASUREMENT RESULTS: Intervals: Rate: 100 NH: 140 QRSD: 74 QT: 364 QTc: 469 [place]: P: 58 NH: 140 QRS: -20 T: 80 INTERPRETIVE STATEMENTS: Normal sinus rhythm Normal ECG Compared to ECG 12/21/2017 01:06:35 No significant changes Electronically Signed On 05-16-23 14:58:28 CONTACT CENTER CONSULTANT by Sahil Ma
== END ==
LOC: ER 08:07
DX: M79.602 Pain in left arm (principal); G47.00 Insomnia, unspecified; F31.9 Bipolar disorder, unspecified; E11.9 Type 2 diabetes mellitus without complications; Z79.4 Long term (current) use of insulin; J44.9 Chronic obstructive pulmonary disease, unspecified; Z91.011 Allergy to milk products; Z91.012 Allergy to eggs; Z91.013 Allergy to seafood; Z91.014 Allergy to mammalian meats; Z91.018 Allergy to other foods
CPT/HCPCS: 36415; 71045; 80048; 80076; 82550; 84484; 85025; 93005

== ENCOUNTER → 2023-07-04 | Emergency (ER) | payer OTHER ==
[~2023-07-04] MED LIST: LORazepam 2 MG/ML VIAL ONE; NA CHLORIDE 0.9% 1,000 ML ONE
--- OUTSIDE RECORDS SUMMARY | 2023-07-04 05:10 | XMS REPORT | Continuity of Care Document ---
Author Name Unknown Address [address] [place] [address] [facility] Address [address] [place] [address] Care Team Providers Care Family Service Worker Name Role Phone Ventura SUE, [facility] Primary Care Physician [phone] Kristal Mohan Attending Clinician Unavailable Annetta Green Attending Clinician Unavailab le Payers Payer Name Policy Type Policy Number Effective Date Expirati on Date Source Problems Condition Name Condition Details Condition Category Status Onset Date Resolution Date Last Treatment Date Treating Clinician Comments Source Problem No known problems ASSERTION [employer] ([place]) Allergies, Adverse Reactions, Alerts Allergy Name Allergy Type Status Severity Reaction(s) Onset Date Inactive Date Treating Clinician Comments Source Iodine Strong - Oral Propensi ty to adverse reaction to drug Active 11-12 00:00: 00 Iodine Propensi ty to adverse reaction to drug Active 10-10 00:00: 00 Social History Smoking Status Start Date Stop Date Source Unknown if ever smoked [facility] [employer] [facility] ([place]) Medications Ordered Medication Name Filled Medication [...] 2021-11-12 08:14:00 18.00 /min Height 2021-02-11 12:22:28 [facility] S [facility] [place] ([place]) Weight Measured 2021-02-11 12:22:[address] [facility] [place] ([place]) Body Temperature 2021-02-11 12:22:[address] [facility] [place] ([place]) Heart Rate 2021-02-11 12:22:28 [facility] [place] ([place]) Respiratory Rate 2021-02-11 12:22:[address] [facility] [place] ([place]) O2 % BldC Oximetry 2021-02-11 12:22:[address] [facility] [place] ([place]) BP Systolic 2021-02-11 12:22:[address] [facility] [place] ([place]) BP Diastolic 2021-02-11 12:22:[address] [facility] ([place]) BMI (Body Mass Index) 2021-02-11 12:22:[address] [facility] ([place]) BP Systolic 2018-01-03 09:34:00 125 mm[Hg] [...] Pelvis W Con 2018-10-22 00:00:[address] [facility] [place] ([place]) XR Chest 1 View Portable 2018-10-22 00:00:[address] [facility] [place] ([place]) EKG 12 Lead in Emergency Room 2018-10-22 00:00:[address] [place] ([place]) [address] Ecg Routine Ecg W/least 12 Lds W/i r 2015-10-14 00:00:00 Plan of Care Planned Activity Planned Date Details Comments Source Goal Plan of Care Note [code = 66619-9] Goal Plan of Care Note [code = 31365-3] Goal Plan of Care Note [code = 91436-9] Goal Plan of Care Note [code = 73281-3] Goal Plan of Care Note [code = 32308-9] Goal Plan of Care Note [code = 67470-9] Goal Plan of Care Note [code = 75217-7] Goal Plan of Care Note [code = 21920-5] Goal Plan of Care Note [code = 47772-0] Goal Plan of Care Note [code = 17645-1] Goal Plan of Care Note [code = 85629-3] Goal Plan of Care Note [code = 11535-0] Goal Plan of Care Note [code = 71105-3] Goal Plan of Care Note [code = 15130-6] Goal Plan of Care Note [code = 57914-7] Goal Plan of Care Note [code = 20805-2] Goal Plan of Care Note [code = 95450-4] Goal Plan of Care Note [code = 87854-5] Goal Plan of Care Note [code = 69893-5] Goal Plan of Care Note [code = 18911-5] Goal Plan of Care Note [code = 24661-8] Goal Plan of Care Note [code = 14254-7] Goal Plan of Care Note [code = 36895-6] Goal Plan of Care Note [code = 15427-9] Goal Plan of Care Note [code = 92238-9] Goal Plan of Care Note [code = 54847-2] Goal Plan of Care Note [code = 76651-8] Goal Plan of Care Note [code = 01350-0] Goal Plan of Care Note [code = 81079-4] Goal Plan of Care Note [code = 85381-8] Goal Plan of Care Note [code = 01457-6] Goal Plan of Care Note [code = 61148-2] Goal Plan of Care Note [code = 77986-3] Goal Plan of Care Note [code = 43312-9] Goal Plan of Care Note [code = 94309-8] Goal Plan of Care Note [code = 03514-6] Goal Plan of Care Note [code = 32788-2] Goal Plan of Care Note [code = 10173-3] Goal Plan of Care Note [code = 36498-3] Goal Plan of Care Note [code = 88412-8] Goal Plan of Care Note [code = 72134-0] Goal Plan of Care Note [code = 81714-8] Goal Plan of Care Note [code = 50264-4] Goal Plan of Care Note [code = 36904-6] Goal Plan of Care Note [code = 64413-1] Goal Plan of Care Note [code = 91342-5] Goal Plan of Care Note [code = 75592-6] Goal Plan of Care Note [code = 44198-2] Goal Plan of Care Note [code = 10307-5] Goal Plan of Care Note [code = 51945-3] Goal Plan of Care Note [code = 87023-3] Goal Plan of Care Note [code = 62692-2] Goal Plan of Care Note [code = 49324-5] Goal Plan of Care Note [code = 31464-8] Goal Plan of Care Note [code = 86763-2] Goal Plan of Care Note [code = 63914-6] Goal Plan of Care Note [code = 79010-7] Goal Plan of Care Note [code = 68303-6] Goal Plan of Care Note [code = 21156-4] Goal Plan of Care Note [code = 36123-3] Goal Plan of Care Note [code = 13005-6] Goal Plan of Care Note [code = 11526-8] Goal Plan of Care Note [code = 57767-5] Goal Plan of Care Note [code = 30797-5] Goal Plan of Care Note [code = 40157-7] Goal Plan of Care Note [code = 42716-3] Goal Plan of Care Note [code = 69573-9] Goal Plan of Care Note [code = 90942-9] Goal Plan of Care Note [code = 08763-1] Goal Plan of Care Note [code = 51421-6] Goal Plan of Care Note [code = 09462-5] Goal Plan of Care Note [code = 87996-6] Goal Plan of Care Note [code = 01456-8] Goal Plan of Care Note [code = 72774-3] Goal Plan of Care Note [code = 31059-0] Goal Plan of Care Note [code = 15637-3] Goal Plan of Care Note [code = 73760-6] Goal Plan of Care Note [code = 71035-1] Goal Plan of Care Note [code = 50127-9] Goal Plan of Care Note [code = 24435-9] Goal Plan of Care Note [code = 01233-4] Goal Plan of Care Note [code = 78418-5] Encounters Start Date/Time End Date/Time Encounter Type Admission Type Attending [facility] Care Department Encounter ID Source 2023-07-01 09:59:25 2023-07-01 09:59:25 Outpatient [facility] [id number] Jorge Kriss Hernandez 2023-06-07 10:49:41 2023-06-07 10:49:41 Outpatient [facility] [id number] Jorge F Hernandez 2023-04-07 14:06:23 2023-04-07 14:06:23 Outpatient [facility] [id number] Jorge Kriss Hernandez 2023-02-25 16:44:10 2023-02-25 16:44:10 Outpatient [facility] [id number] Jorge F Hernandez 2022-11-17 15:22:13 2022-11-17 15:22:13 Outpatient [facility] [id number] Jorge F Hernandez 2022-11-11 09:39:36 2022-11-11 09:39:36 Outpatient [facility] [id number] Jorge Ng 2022-11-05 11:27:59 2022-11-05 11:27:59 Outpatient [facility] [id number] Jorge Ng 2022-10-22 08:46:51 2022-10-22 08:46:51 Outpatient [facility] [id number] Jorge Ng 2022-05-25 11:22:12 2022-05-25 11:22:12 Outpatient [facility] [id number] Jorge Ng 2021 00:00:00 2021 00:00:00 Outpatient Visit [id number] 13c7ff 2021-11-12 00:00:00 2021-11-12 00:00:00 Outpatient Visit [id number] 2020-09-29 10:30:00 2020-09-29 10:30:00 Outpatient Kristal Mohan STLSJX STLSJX [id number] STLSJX 2018-10-22 11:56:00 2018-10-22 15:05:00 Departed Emergency ER Annetta Green [id number] 1.2 [facility] [id number] [facility] Results Test Description Test Time Test Comments Results Result Co mments Source [id number] 06:25:11* Test Item Value Reference Range Interpretation Comme nts AMYLASE (test code = 2205) 96 U/L 28-100 [id number] 06:25:11* Test Item Value Reference Range Interpretation Comme nts LIPASE (test code = 2058) 46 U/L 13-60 TSH, THIRD [id number] 01:05:19* Test Item Value Reference Range Interpretation Comme nts TSH, THIRD GENERATION (test code = 2821) 3.070 UIU/ML 0.400-4.100 LIPID [id number] 00:53:13* Test Item Value Reference Range Interpretation [...] SPECIMENS. FOR MOREINFORMATION, SEE CLIENT ANNOUNCEMENT AT [email or web address] CalcLDL-C RISK RATIO LDL/HDL (test code = 2238) (NOTE) RATIO <3.22 UNABLE TO JUDY CULATE HEMOGLOBIN [id number] 02:43:52* Test Item Value Reference Range Interpretation Comme [facility] HEMOGLOBIN A1c (test code = 32807) 8.5 % 4.2-5.6 H [employer] GUIDELINES FOR HGB A1C: [...] TESTING PERFORMED AT [facility] [address] [place] [address] CONSUMER BANKER: DUYEN HOFFMAN M.D. [place] NUMBER [id number] [place]. [id number] TSH, THIRD [id number] 05:46:08* Test Item Value Reference Range Interpretation Comme nts TSH, THIRD GENERATION (test code = 2821) 2.380 UIU/ML 0.400-4.100 [facility] has important pathology staff changes effective 06/09/2022. New pathology staff will provide uninterrupted, excellent patient care and clinical consultation. See URL: [email or web address]. UNLESS OTHERWISE INDICATED, ALL TESTING PERFORMED AT [facility] [address] [place] [address] CLIA: [id number], CAP: [id number] COMPREHENSIVE METABOLIC [id number] 04:06:56* Test Item Value Reference Range Interpretation Comme nts GLUCOSE (test code = 2217) 305 MG/DL 70-99 H BUN (test code = 8) 15 MG/DL 8-23 CREATININE (test code = 2214) 0.52 MG/DL 0.60-1.30 L eGFR (2020 CKD-EPI) (test code = 29583) 103 ML/MIN/1.73 >60 CALC BUN/CREAT (test code = 2235) 29 RATIO 6-28 H SODIUM (test code = 2231) 142 MEQ/L 133-146 POTASSIUM (test code = 2228) 4.2 MEQ/L 3.5-5.4 CHLORIDE (test code = 2215) 101 MEQ/L 95-107 CARBON DIOXIDE (test code = 2206) 24 MEQ/L 19-31 CALCIUM (test code = 2209) 10.1 MG/DL 8.5-10.5 PROTEIN, TOTAL (test code = 2229) 7.6 G/DL 6.1-8.3 ALBUMIN (test code = [...] = 2219) 52 U/L 5-40 H LIPID [id number] 04:06:56* Test Item Value Reference Range Interpretation [...] SPECIMENS. FOR MOREINFORMATION, SEE CLIENT ANNOUNCEMENT AT [email or web address] /CalcLDL-C RISK RATIO LDL/HDL (test code = 2238) 4.22 RATIO <3.22 H HEMOGLOBIN [id number] 02:49:54* Test Item Value Reference Range Interpretation Comme nts HEMOGLOBIN A1c (test code = 03219) 9.5 % 4.2-5.6 H [employer] GUIDELINES FOR HGB A1C: [...] CONSIDER ALTERNATE TESTING OR LABORATORY CONSULTATION. LIPID [id number] 04:15:43* Test Item Value Reference Range Interpretation [...] SPECIMENS. FOR MOREINFORMATION, SEE CLIENT ANNOUNCEMENT AT [email or web address] /CalcLDL-C RISK RATIO LDL/HDL (test code = 2238) 3.72 RATIO <3.22 H UNLESS OTHERW ISE INDICATED, ALL TESTING PERFORMED [facility] [address] [place] [address] CONSUMER BANKER: CHANEL HEMPHILL M.D. [place] NUMBER [id number] [facility] [place]. [id number] HEMOGLOBIN [id number] 02:45:03* Test Item Value Reference Range Interpretation Comme [facility] HEMOGLOBIN A1c (test code = 47162) 8.9 % 4.2-5.6 H [employer] GUIDELINES FOR HGB A1C: [...] CONSIDER ALTERNATE TESTING OR LABORATORY CONSULTATION. Culture, [id number] 10:25:00* Test Item Value Reference Range Interpretation Comme nts Culture, Urine (test code = URC) NF Culture, Urine (test code = URC1) 25 [facility] [id number] 13:57:00* Test Item Value Reference Range Interpretation [...] = ALT) 39 U/L 8-55 N Laboratory [id number] 13:35:00* Test Item Value Reference [place] [address]270-5 (test code = 72076-3) 2.8 g/dL 2.4-3.5 [facility] Vonxjjr3014-35-97 13:35:00* Test Item Value Reference [place]ts [address]-5 (test code = 87515-0) 85 [facility])Laboratory Gxlarse4318-98-77 13:35:00* Test Item Value Reference Range Interpretation Comme nts 2160-0 (test code = 2160-0) 0.70 mg/dL 0.6-1.1 [facility])Laboratory Eiqjcpu3611-25-07 13:35:00* Test Item Value Reference Range Interpretation Comme nts 2075-0 (test code = 5-0) 100 mmol/L 98-107 [facility])Laboratory Duguxpr5253-40-91 13:35:00* Test Item Value Reference Range Interpretation Comme nts 8-9 (test code = 2027-9) 30 mmol/L 23-31 [facility])Laboratory Ojrbojs4747-79-88 13:35:00* Test Item Value Reference Range Interpretation Com[place] nts 17637-6 (test code = 27732-1) 11.0 mg/dL 7.8-10.44 H [facility] Qnqdlft8712-96-63 13:35:00* Test Item Value Reference Range Interpretation Comme nts 3094-0 (test code = 3094-0) 8 mg/dL 9.8-20.1 L [facility])Laboratory Udlwlve9162-33-91 13:35:00* Test Item Value Reference Range Interpretation Comme nts 1920-8 (test code = 1920-8) 25 U/L 5-34 [facility])Laboratory Xrrrtgl7825-43-43 13:35:00* Test Item Value Reference [place]ts 87888-5 (test code = 16987-1) 12 mmol/L 10-20 [facility])Laboratory Sjiehro2008-92-27 13:35:00* Test Item Value Reference Range Interpretation Comme nts 6768-6 (test code = 6768-6) 83 U/L 40-150 [facility])Laboratory Lozkczp5669-70-40 13:35:00* Test Item Value Reference Range Interpretation Comme nts 1759-0 (test code = 1759-0) 1.6 g/dL 1.2-2.2 [facility])Laboratory Stuptuo3088-88-11 13:35:00* Test Item Value Reference Range Interpretation Comme nts 11878-0 (test code = 63683-1) 4.4 g/dL 3.4-4.8 [facility])Laboratory Bdvydjh4645-12-24 13:35:00* Test Item Value Reference Range Interpretation Comme nts 1744-2 (test code = 1744-2) 39 U/L 8-55 [facility])Laboratory Awmbwgz3678-32-91 13:35:00* Test Item Value Reference Range Interpretation Comme nts 1975-2 (test code = 1975-2) 0.5 mg/dL 0.2-1.2 [facility] Suriono2088-73-66 13:35:00* Test Item Value Reference Range Interpretation Comme nts 2951-2 (test code = 2951-2) 138 mmol/L 136-145 [facility])Laboratory Vlzaybs4974-60-86 13:35:00* Test Item Value Reference Range Interpretation Comme nts 2885-2 (test code = 2885-2) 7.2 g/dL 6.0-8.3 [facility])Laboratory Kgqanar4350-90-66 13:35:00* Test Item Value Reference Range Interpretation Comme nts 2823-3 (test code = 2823-3) 4.2 mmol/L 3.5-5.1 [facility])Laboratory Sggagyk7871-19-79 13:35:00* Test Item Value Reference Range Interpretation Comme nts 2345-7 (test code = 2345-7) 223 mg/dL 80-115 H [facility])Awocstxcb7965-07-14 13:19:00* Test Item Value Reference Range Interpretation Comme [facility] Chemistry (test code = TROPI-R) Less than 0.010 ng/mL < 0.028 * Reference Range 0.00 - 0.028 ng/mL Negative 0.029 - 0.29 ng/mL Indeterminate Greater or Equal to 0.3 ng/mL Strongly suggests [place] Isjkgzrngp7835-46-32 12:54:00* Test Item Value Reference Range Interpretation Comme nts Hematology (test code = WBCT) 4.8 thou/uL [...] code = BASO#) 0.1 thou/uL 0.0-0.2 N Swcccgsqwf7488-83-28 12:54:00* Test Item Value Reference Range Interpretation [...] Negative Negative Urine Source: Urine Clean CatchLaboratory Ifbtgdf0843-99-13 12:42:00* Test Item Value Reference Range Interpretation Comme nts 6690-2 (test code = 6690-2) 4.8 thou/uL 4.8-10.8 [facility])Laboratory Fkcujyt9921-31-32 12:42:00* Test Item Value Reference Range Interpretation Comme nts 788-0 (test code = 788-0) 11.6 % 11.5-14.5 [facility])Laboratory Fgnwxip8710-16-09 12:42:00* Test Item Value Reference Range Interpretation Comme nts 789-8 (test code = 789-8) 4.37 mill/uL 4.20-5.40 [facility])Laboratory Ymwtpvc3886-19-99 12:42:00* Test Item Value Reference Range Interpretation Comme nts 777-3 (test code = 777-3) 223 thou/uL 130-400 [facility])Laboratory Mdxanhj4473-27-89 12:42:00* Test Item Value Reference Range Interpretation Comme nts 770-8 (test code = 770-8) 50.5 % 42.0-75.0 [facility])Laboratory Sjohpus8118-08-58 12:42:00* Test Item Value Reference Range Interpretation Comme nts 751-8 (test code = 751-8) 2.4 thou/uL 1.40-6.50 [facility])Laboratory Szvkwju6120-20-65 12:42:00* Test Item Value Reference Range Interpretation Comme nts 5905-5 (test code = 5905-5) 6.9 % 0.0-10.0 [facility])Laboratory Jqabqrs4426-62-02 12:42:00* Test Item Value Reference Range Interpretation Comme nts 742-7 (test code = 742-7) 0.3 thou/uL 0.11-0.59 [facility])Laboratory Mejsabd3251-15-12 12:42:00* Test Item Value Reference Range Interpretation Com[place] nts 44663-2 (test code = 56028-7) 7.7 fL 7.4-10.4 [facility])Laboratory Kkxyqgs2787-69-60 12:42:00* Test Item Value Reference Range Interpretation Comme nts 787-2 (test code = 787-2) 97.7 fL 78.0-98.0 [facility])Laboratory Dahxovg6495-86-70 12:42:00* Test Item Value Reference Range Interpretation Comme nts 786-4 (test code = 786-4) 32.5 g/dL 32.0-36.0 [facility])Laboratory Eykutbp3340-86-87 12:42:00* Test Item Value Reference Range Interpretation Comme nts 785-6 (test code = 785-6) 31.7 pg 27.0-31.0 H [facility])Laboratory Azpphbi3152-09-09 12:42:00* Test Item Value Reference Range Interpretation Comme nts 736-9 (test code = 736-9) 39.6 % 21.0-51.0 [facility])Laboratory Npytrtk3618-17-28 12:42:00* Test Item Value Reference Range Interpretation Comme nts 731-0 (test code = 731-0) 1.9 thou/uL 1.20-3.40 [facility])Laboratory Pxsjjyz0586-85-30 12:42:00* Test Item Value Reference Range Interpretation Comme nts 718-7 (test code = 718-7) 13.9 g/dL 12.0-16.0 [facility])Laboratory Gduniep5120-10-93 12:42:00* Test Item Value Reference Range Interpretation Comme nts 713-8 (test code = 713-8) 1.7 % 0.0-10.0 [facility])Laboratory Tyvivss6280-75-82 12:42:00* Test Item Value Reference Range Interpretation Comme nts 711-2 (test code = 711-2) 0.1 thou/uL 0.0-0.7 [facility])Laboratory Oimuchb7831-20-46 12:42:00* Test Item Value Reference Range Interpretation Comme nts 706-2 (test code = 706-2) 1.2 % 0.0-1.0 H [facility])Laboratory Jdtqwlq4433-50-13 12:42:00* Test Item Value Reference Range Interpretation Comme nts 704-7 (test code = 704-7) 0.1 thou/uL 0.0-0.2 [facility])Laboratory Apfqzon8943-99-32 12:38:00* Test Item Value Reference Range Interpretation Comme nts 5803-2 (test code = 5803-2) 6.0 5.0-9.0 [facility])Laboratory Cxkaxhr4736-91-74 12:38:00* Test Item Value Reference Range Interpretation Comme nts 5811-5 (test code = 5811-5) 1.004 1.002-1.036 [facility])Laboratory Byhfzvg1100-17-94 12:38:00* Test Item Value Reference Range Interpretation Com[place] nts 46861-4 (test code = 24267-2) 500 mg/dL A [facility])Laboratory Nleosjg5885-76-10 12:38:00[facility] [facility] Pjqjppv8057-50-30 12:38:00Urine Protein[facility] Studies 2018-10-22 12:38:00[facility]rine [facility] Rwpkzvz5440-37-34 12:38:00Urine Leukocyte EsteraseCH[facility] Msgwfdl4748-95-74 12:38:00[address]rine [facility] Htpqqns5943-80-77 12:38:00Urine [address] Njjcbps3511-75-93 12:38:00Urine [facility]arity[facility] Errsnmy8991-26-07 12:38:00Urine Blood[address] Thkwjhe6635-48-08 12:38:00Urine Bilirubin[address] Hfwjifu6307-05-99 12:27:[address] [facility]Fucwvwsy1261-62-25 12:18:00* Test Item Value Reference Range Interpretation Comme nts Accuchek (test code = ACU) 303 mg/dL 70-110 H URINE CULTURE, NO [id number] 00:00:00* Test Item Value Reference Range Interpretation Comme nts URINE CULTURE, NO SENS (test code = 16776) SPECIMEN NUMBER: [id number] URINE CULTURE, NO [id number] 00:00:00* Test Item Value Reference Range Interpretation Comme nts URINE CULTURE, NO SENS (test code = 00651) SPECIMEN NUMBER: [id number] URINE CULTURE, NO [id number] 00:00:00* Test Item Value Reference Range Interpretation Comme nts URINE CULTURE, NO SENS (test code = 13710) SPECIMEN NUMBER: [id number] PAP TEST, THINPREP, [id number] 00:00:00* Test Item Value Reference Range Interpretation Comme nts SOURCE: (test code = 8001) Endocervical SLIDES: (test code = 8011) 1 LMP: (test code = 8021) NOT GIVEN SPECIMEN ADEQUACY: (test code = 85836) (NOTE) INTERPRETATION: (test code = 20028) EPITHELIAL ABNORMALITY SEE BELOW MECHANICAL ASSEMBLY TECHNICIAN: (test code = 8101) CAMPBELL Grigsby(ASCP)IAC PATHOLOGIST INTERPRETATION BY: (test code = 8122) [facility] LOCATION: (test code = 99390) (NOTE) CPT: (test code = 8140) (NOTE) PAP TEST, THINPREP, [id number] 00:00:00* Test Item Value Reference Range Interpretation Comme [facility] SOURCE: (test code = 8001) Endocervical SLIDES: (test code = 8011) 1 LMP: (test code = 8021) NOT GIVEN SPECIMEN ADEQUACY: (test code = 01943) (NOTE) INTERPRETATION: (test code = 96162) EPITHELIAL ABNORMALITY SEE BELOW MECHANICAL ASSEMBLY TECHNICIAN: (test code = 8101) CAMPBELL Grigsby(ASCP)IAC PATHOLOGIST INTERPRETATION BY: (test code = 8122) [facility] LOCATION: (test code = 47881) (NOTE) CPT: (test code = 8140) (NOTE) PAP TEST, THINPREP, [id number] 00:00:00* Test Item Value Reference Range Interpretation Comme [facility] SOURCE: (test code = 8001) Endocervical SLIDES: (test code = 8011) 1 LMP: (test code = 8021) NOT GIVEN SPECIMEN ADEQUACY: (test code = 19740) (NOTE) INTERPRETATION: (test code = 44873) EPITHELIAL ABNORMALITY SEE BELOW MECHANICAL ASSEMBLY TECHNICIAN: (test code = 8101) CAMPBELL Grigsby(ASCP)IAC PATHOLOGIST INTERPRETATION BY: (test code = 8122) [facility] LOCATION: (test code = 08416) (NOTE) CPT: (test code = 8140) (NOTE) VITAMIN D, 25 [id number] 00:00:00* Test Item Value Reference Range Interpretation Comme [facility] VITAMIN D, 25 [place] (test code = 4958) 18 NG/ML HEMOGLOBIN [id number] 00:00:00* Test Item Value Reference Range Interpretation Comme [facility] HEMOGLOBIN A1c (test code = 11741) 8.8 % HEMOGLOBIN [id number] 00:00:00* Test Item Value Reference Range Interpretation Comme [facility] HEMOGLOBIN A1c (test code = 50332) 8.8 % [id number] 00:00:00* Test Item Value Reference Range Interpretation Comme [facility] TSH, THIRD GENERATION (test code = 2821) 4.020 UIU/ML [id number] 00:00:00* Test Item Value Reference Range Interpretation Comme [facility] TSH, THIRD GENERATION (test code = 2821) 4.020 UIU/ML VITAMIN D, 25 [id number] 00:00:00* Test Item Value Reference Range Interpretation Comme nts VITAMIN D, 25 OH (test code = 4958) 18 NG/ML VITAMIN D, 25 [id number] 00:00:00* Test Item Value Reference Range Interpretation Comme nts VITAMIN D, 25 OH (test code = 4958) 18 NG/ML HEMOGLOBIN [id number] 00:00:00* Test Item Value Reference Range Interpretation Comme nts HEMOGLOBIN A1c (test code = 39357) 8.8 % HEMOGLOBIN [id number] 00:00:00* Test Item Value Reference Range Interpretation Comme nts HEMOGLOBIN A1c (test code = 96481) 8.8 % HEMOGLOBIN [id number] 00:00:00* Test Item Value Reference Range Interpretation Comme nts HEMOGLOBIN A1c (test code = 70897) 8.8 % [id number] 00:00:00* Test Item Value Reference Range Interpretation Comme nts TSH, THIRD GENERATION (test code = 2821) 4.020 UIU/ML [id number] 00:00:00* Test Item Value Reference Range Interpretation Comme nts TSH, THIRD GENERATION (test code = 2821) 4.020 UIU/ML [id number] 00:00:00* Test Item Value Reference Range Interpretation Comme nts TSH, THIRD GENERATION (test code = 2821) 4.020 UIU/ML HEMOGLOBIN [id number] 00:00:00* Test Item Value Reference Range Interpretation Comme nts HEMOGLOBIN A1c (test code = 32555) 8.6 % HEMOGLOBIN [id number] 00:00:00* Test Item Value Reference Range Interpretation Comme nts HEMOGLOBIN A1c (test code = 88163) 8.6 % COMPREHENSIVE METABOLIC [id number] 00:00:00* Test Item Value Reference Range Interpretation Comme nts GLUCOSE (test code = 2217) 276 MG/DL BUN (test code = 2208) 14 MG/DL CREATININE (test code = 2214) 0.60 MG/DL eGFR AMER. (test cod e = 44601) 115 ML/MIN/1.73 eGFR NON- AMER. (test code = 21880) 99 ML/MIN/1.73 CALC BUN/CREAT (test code = [...] (test code = 2219) 67 U/L LIPID [id number] 00:00:00* Test Item Value Reference Range Interpretation [...] (test code = 2821) 2.270 UIU/ML HEMOGLOBIN [id number] 00:00:00* Test Item Value Reference Range Interpretation Comme nts HEMOGLOBIN A1c (test code = 68502) 8.6 % HEMOGLOBIN [id number] 00:00:00* Test Item Value Reference Range Interpretation Comme nts HEMOGLOBIN A1c (test code = 92996) 8.6 % HEMOGLOBIN [id number] 00:00:00* Test Item Value Reference Range Interpretation Comme nts HEMOGLOBIN A1c (test code = 07588) 8.6 % COMPREHENSIVE METABOLIC [id number] 00:00:00* Test Item Value Reference Range Interpretation Comme nts GLUCOSE (test code = 2217) 276 MG/DL BUN (test code = 2208) 14 MG/DL CREATININE (test code = 2214) 0.60 MG/DL eGFR AMER. (test cod e = 54851) 115 ML/MIN/1.73 eGFR NON- AMER. (test code = 78767) 99 ML/MIN/1.73 CALC BUN/CREAT (test code = [...] code = 2219) 67 U/L COMPREHENSIVE METABOLIC [id number] 00:00:00* Test Item Value Reference Range Interpretation Comme nts GLUCOSE (test code = 2217) 276 MG/DL BUN (test code = 2208) 14 MG/DL CREATININE (test code = 2214) 0.60 MG/DL eGFR AMER. (test cod e = 35542) 115 ML/MIN/1.73 eGFR NON- AMER. (test code = 96078) 99 ML/MIN/1.73 CALC BUN/CREAT (test code = [...] (test code = 2219) 67 U/L LIPID [id number] 00:00:00* Test Item Value Reference Range Interpretation Comme nts CHOLESTEROL (test code = 2210) 198 MG/DL TRIGLYCERIDES (test code = 2232) 120 MG/DL HDL CHOLESTEROL (test code = 2220) 77 MG/DL CALC LDL CHOL (test code = 2237) 97 MG/DL RISK RATIO LDL/HDL (test cod e = 2238) 1.26 RATIO LIPID [id number] 00:00:00* Test Item Value Reference Range Interpretation [...] code = 2821) 2.270 UIU/ML COMPREHENSIVE METABOLIC [id number] 00:00:00* Test Item Value Reference Range Interpretation Comme nts GLUCOSE (test code = 2217) 94 MG/DL BUN (test code = 2208) 18 MG/DL CREATININE (test code = 2214) 0.83 MG/DL eGFR AMER. (test cod e = 68688) 89 ML/MIN/1.73 eGFR NON- AMER. (test code = 60423) 77 ML/MIN/1.73 CALC BUN/CREAT (test code = [...] (test code = 2219) 30 U/L LIPID [id number] 00:00:00* Test Item Value Reference Range Interpretation Comme nts CHOLESTEROL (test code = 2210) 252 MG/DL TRIGLYCERIDES (test code = 2232) 294 MG/DL HDL CHOLESTEROL (test code = 2220) 61 MG/DL CALC LDL CHOL (test code = 2237) 132 MG/DL RISK RATIO LDL/HDL (test cod e = 2238) 2.17 RATIO [id number] 00:00:00* Test Item Value Reference Range Interpretation Comme nts TSH (test code = 2821) 4.270 UIU/ML [id number] 00:00:00* Test Item Value Reference Range Interpretation Comme nts TSH (test code = 2821) 4.270 UIU/ML COMPREHENSIVE METABOLIC [id number] 00:00:00* Test Item Value Reference Range Interpretation Comme nts GLUCOSE (test code = 2217) 94 MG/DL BUN (test code = 2208) 18 MG/DL CREATININE (test code = 2214) 0.83 MG/DL eGFR AMER. (test cod e = 45051) 89 ML/MIN/1.73 eGFR NON- AMER. (test code = 76959) 77 ML/MIN/1.73 CALC BUN/CREAT (test code = [...] code = 2219) 30 U/L COMPREHENSIVE METABOLIC [id number] 00:00:00* Test Item Value Reference Range Interpretation Comme nts GLUCOSE (test code = 2217) 94 MG/DL BUN (test code = 2208) 18 MG/DL CREATININE (test code = 2214) 0.83 MG/DL eGFR AMER. (test cod e = 13496) 89 ML/MIN/1.73 eGFR NON- AMER. (test code = 07269) 77 ML/MIN/1.73 CALC BUN/CREAT (test code = [...] (test code = 2219) 30 U/L LIPID [id number] 00:00:00* Test Item Value Reference Range Interpretation Comme nts CHOLESTEROL (test code = 2210) 252 MG/DL TRIGLYCERIDES (test code = 2232) 294 MG/DL HDL CHOLESTEROL (test code = 2220) 61 MG/DL CALC LDL CHOL (test code = 2237) 132 MG/DL RISK RATIO LDL/HDL (test cod e = 2238) 2.17 RATIO LIPID [id number] 00:00:00* Test Item Value Reference Range Interpretation Comme nts CHOLESTEROL (test code = 2210) 252 MG/DL TRIGLYCERIDES (test code = 2232) 294 MG/DL HDL CHOLESTEROL (test code = 2220) 61 MG/DL CALC LDL CHOL (test code = 2237) 132 MG/DL RISK RATIO LDL/HDL (test cod e = 2238) 2.17 RATIO [id number] 00:00:00* Test Item Value Reference Range Interpretation Comme nts TSH (test code = 2821) 4.270 UIU/ML [id number] 00:00:00* Test Item Value Reference Range Interpretation Comme nts TSH (test code = 2821) 4.270 UIU/ML [id number] 00:00:00* Test Item Value Reference Range Interpretation Comme nts TSH (test code = 2821) 4.270 UIU/ML HEMOGLOBIN [id number] 00:00:00* Test Item Value Reference Range Interpretation Comme nts HEMOGLOBIN A1c (test code = 96864) 8.7 % HEMOGLOBIN [id number] 00:00:00* Test Item Value Reference Range Interpretation Comme nts HEMOGLOBIN A1c (test code = 61671) 8.7 % HEMOGLOBIN [id number] 00:00:00* Test Item Value Reference Range Interpretation Comme nts HEMOGLOBIN A1c (test code = 53848) 8.7 % HEMOGLOBIN [id number] 00:00:00* Test Item Value Reference Range Interpretation Comme nts HEMOGLOBIN A1c (test code = 12079) 8.7 % HEMOGLOBIN [id number] 00:00:00* Test Item Value Reference Range Interpretation Comme nts HEMOGLOBIN A1c (test code = 45698) 8.7 % HEMOGLOBIN [id number] 00:00:00* Test Item Value Reference Range Interpretation Comme nts HEMOGLOBIN A1c (test code = 44606) 11.9 % HEMOGLOBIN [id number] 00:00:00* Test Item Value Reference Range Interpretation Comme nts HEMOGLOBIN A1c (test code = 87735) 11.9 % [id number] 00:00:00* Test Item Value Reference Range Interpretation Comme nts TSH (test code = 2821) 2.62 UIU/ML [id number] 00:00:00* Test Item Value Reference Range Interpretation Comme nts TSH (test code = 2821) 2.62 UIU/ML HEMOGLOBIN [id number] 00:00:00* Test Item Value Reference Range Interpretation Comme nts HEMOGLOBIN A1c (test code = 49004) 11.9 % HEMOGLOBIN [id number] 00:00:00* Test Item Value Reference Range Interpretation Comme nts HEMOGLOBIN A1c (test code = 99571) 11.9 % HEMOGLOBIN [id number] 00:00:00* Test Item Value Reference Range Interpretation Comme nts HEMOGLOBIN A1c (test code = 34469) 11.9 % [id number] 00:00:00* Test Item Value Reference Range Interpretation Comme nts TSH (test code = 2821) 2.62 UIU/ML [id number] 00:00:00* Test Item Value Reference Range Interpretation Comme nts TSH (test code = 2821) 2.62 UIU/ML [id number] 00:00:00* Test Item Value Reference Range Interpretation Comme nts TSH (test code = 2821) 2.62 UIU/ML HEMOGLOBIN [id number] 00:00:00* Test Item Value Reference Range Interpretation Comme nts HEMOGLOBIN A1c (test code = 96050) 8.2 % HEMOGLOBIN [id number] 00:00:00* Test Item Value Reference Range Interpretation Comme nts HEMOGLOBIN A1c (test code = 97501) 8.2 % [id number] 00:00:00* Test Item Value Reference Range Interpretation Comme nts TSH (test code = 2821) 1.3 UIU/ML [id number] 00:00:00* Test Item Value Reference Range Interpretation Comme nts TSH (test code = 2821) 1.3 UIU/ML HEMOGLOBIN [id number] 00:00:00* Test Item Value Reference Range Interpretation Comme nts HEMOGLOBIN A1c (test code = 64271) 8.2 % HEMOGLOBIN [id number] 00:00:00* Test Item Value Reference Range Interpretation Comme nts HEMOGLOBIN A1c (test code = 94660) 8.2 % HEMOGLOBIN [id number] 00:00:00* Test Item Value Reference Range Interpretation Comme nts HEMOGLOBIN A1c (test code = 98888) 8.2 % [id number] 00:00:00* Test Item Value Reference Range Interpretation Comme nts TSH (test code = 2821) 1.3 UIU/ML [id number] 00:00:00* Test Item Value Reference Range Interpretation Comme nts TSH (test code = 2821) 1.3 UIU/ML [id number] 00:00:00* Test Item Value Reference Range Interpretation Comme nts TSH (test code = 2821) 1.3 UIU/ML ACUTE HEPATITIS [id number] 00:00:00* Test Item Value Reference Range Interpretation Comme nts HEPATITIS A IgM (test code = 16284) NON-REACTIVE HEPATITIS B CORE IgM (test c ode = 4644) NON-REACTIVE HEPATITIS B SURF AG (test co de = 2739) NON-REACTIVE HEPATITIS C ANTIBODY (test c ode = 4675) NON-REACTIVE INTERPRETATION HEPATITIS A: (test code = 2552) (NOTE) INTERPRETATION HEPATITIS B: (test code = 57376) (NOTE) INTERPRETATION HEPATITIS C: (test code = 65390) (NOTE) ACUTE HEPATITIS [id number] 00:00:00* Test Item Value Reference Range Interpretation Comme nts HEPATITIS A IgM (test code = 31981) NON-REACTIVE HEPATITIS B CORE IgM (test c ode = 4644) NON-REACTIVE HEPATITIS B SURF AG (test co de = 2739) NON-REACTIVE HEPATITIS C ANTIBODY (test c ode = 4675) NON-REACTIVE INTERPRETATION HEPATITIS A: (test code = 2552) (NOTE) INTERPRETATION HEPATITIS B: (test code = 83820) (NOTE) INTERPRETATION HEPATITIS C: (test code = 54640) (NOTE) ACUTE HEPATITIS [id number] 00:00:00* Test Item Value Reference Range Interpretation Comme nts HEPATITIS A IgM (test code = 64806) NON-REACTIVE HEPATITIS B CORE IgM (test c ode = 4644) NON-REACTIVE HEPATITIS B SURF AG (test co de = 5579) NON-REACTIVE HEPATITIS C ANTIBODY (test c ode = 4622) NON-REACTIVE INTERPRETATION HEPATITIS A: (test code = 2552) (NOTE) INTERPRETATION HEPATITIS B: (test code = 74986) (NOTE) INTERPRETATION HEPATITIS C: (test code = 41683) (NOTE) COMPREHENSIVE METABOLIC [id number] 00:00:00* Test Item Value Reference Range Interpretation Comme nts GLUCOSE (test code = 2217) 111 MG/DL BUN (test code = 2208) 12 MG/DL CREATININE (test code = 2214) 0.47 MG/DL eGFR AMER. (test cod e = 36672) 126 ML/MIN/1.73 eGFR NON- AMER. (test code = 93679) 109 ML/MIN/1.73 CALCULATED BUN/CREAT (test code = [...] (test code = 2219) 59 U/L HEMOGLOBIN [id number] 00:00:00* Test Item Value Reference Range Interpretation Comme nts HEMOGLOBIN A1c (test code = 65866) 7.7 % HEMOGLOBIN [id number] 00:00:00* Test Item Value Reference Range Interpretation Comme nts HEMOGLOBIN A1c (test code = 52280) 7.7 % [id number] 00:00:00* Test Item Value Reference Range Interpretation Comme nts TSH (test code = 2821) 2.1 UIU/ML [id number] 00:00:00* Test Item Value Reference Range Interpretation Comme nts TSH (test code = 2821) 2.1 UIU/ML COMPREHENSIVE METABOLIC [id number] 00:00:00* Test Item Value Reference Range Interpretation Comme nts GLUCOSE (test code = 2217) 111 MG/DL BUN (test code = 2208) 12 MG/DL CREATININE (test code = 2214) 0.47 MG/DL eGFR AMER. (test cod e = 51074) 126 ML/MIN/1.73 eGFR NON- AMER. (test code = 45162) 109 ML/MIN/1.73 CALCULATED BUN/CREAT (test code = [...] code = 2219) 59 U/L COMPREHENSIVE METABOLIC [id number] 00:00:00* Test Item Value Reference Range Interpretation Comme nts GLUCOSE (test code = 2217) 111 MG/DL BUN (test code = 2208) 12 MG/DL CREATININE (test code = 2214) 0.47 MG/DL eGFR AMER. (test cod e = 29396) 126 ML/MIN/1.73 eGFR NON- AMER. (test code = 62091) 109 ML/MIN/1.73 CALCULATED BUN/CREAT (test code = [...] 56 U/L SGPT (ALT) (test code = 221) 59 U/L HEMOGLOBIN [id number] 00:00:00* Test Item Value Reference Range Interpretation Comme nts HEMOGLOBIN A1c (test code = 52664) 7.7 % HEMOGLOBIN [id number] 00:00:00* Test Item Value Reference Range Interpretation Comme nts HEMOGLOBIN A1c (test code = 99434) 7.7 % HEMOGLOBIN [id number] 00:00:00* Test Item Value Reference Range Interpretation Comme nts HEMOGLOBIN A1c (test code = 64827) 7.7 % [id number] 00:00:00* Test Item Value Reference Range Interpretation Comme nts TSH (test code = 2821) 2.1 UIU/ML [id number] 00:00:00* Test Item Value Reference Range Interpretation Comme nts TSH (test code = 2821) 2.1 UIU/ML [id number] 00:00:00* Test Item Value Reference Range Interpretation Comme nts TSH (test code = 2821) 2.1 UIU/ML HEMOGLOBIN [id number] 00:00:00* Test Item Value Reference Range Interpretation Comme nts HEMOGLOBIN A1c (test code = 26155) 7.1 % HEMOGLOBIN [id number] 00:00:00* Test Item Value Reference Range Interpretation Comme nts HEMOGLOBIN A1c (test code = 81685) 7.1 % [id number] 00:00:00* Test Item Value Reference Range Interpretation Comme nts TSH (test code = 2821) 5.0 UIU/ML [id number] 00:00:00* Test Item Value Reference Range Interpretation Comme nts TSH (test code = 2821) 5.0 UIU/ML HEMOGLOBIN [id number] 00:00:00* Test Item Value Reference Range Interpretation Comme nts HEMOGLOBIN A1c (test code = 14808) 7.1 % HEMOGLOBIN [id number] 00:00:00* Test Item Value Reference Range Interpretation Comme nts HEMOGLOBIN A1c (test code = 50442) 7.1 % HEMOGLOBIN [id number] 00:00:00* Test Item Value Reference Range Interpretation Comme nts HEMOGLOBIN A1c (test code = 57229) 7.1 % [id number] 00:00:00* Test Item Value Reference Range Interpretation Comme nts TSH (test code = 2821) 5.0 UIU/ML [id number] 00:00:00* Test Item Value Reference Range Interpretation Comme nts TSH (test code = 2821) 5.0 UIU/ML [id number] 00:00:00* Test Item Value Reference Range Interpretation [...] (test code = 2821) 2.4 UIU/ML HEMOGLOBIN [id number] 00:00:00* Test Item Value Reference Range Interpretation Comme nts HEMOGLOBIN A1c (test code = 08242) 8.0 % HEMOGLOBIN [id number] 00:00:00* Test Item Value Reference Range Interpretation Comme nts HEMOGLOBIN A1c (test code = 43486) 8.0 % THYROID II PROFILE (T3U, T4, [...] (test code = 2821) 2.4 UIU/ML HEMOGLOBIN [id number] 00:00:00* Test Item Value Reference Range Interpretation Comme nts HEMOGLOBIN A1c (test code = 25839) 8.0 % HEMOGLOBIN [id number] 00:00:00* Test Item Value Reference Range Interpretation Comme nts HEMOGLOBIN A1c (test code = 17596) 8.0 % HEMOGLOBIN [id number] 00:00:00* Test Item Value Reference Range Interpretation Comme nts HEMOGLOBIN A1c (test code = 19407) 8.0 % MAMMO Bilat Screen DDI Name: SHO GONZALES : 1955 [facility] [address] [facility] Phys: [place] [address] : 1955 Age: 64 SEX:F Exam Date: 09/29/20 Status: REG REF Acct: [id number] Loc: [facility] Pt Unit #: [id number] Report #: [id number] CC: Kristal Mohan MD MAMMOGRAPHY REPORT Order # Category/Exam [id number] MMO/MAMMO Bilat Screen DDI ([id number]): . Results 1 Bilateral MAMMO Bilat Screen DDI. CLINICAL HISTORY: Patient is 64 years old and is seen for screening.The patient has no family history of breast cancer. The patient has no personal history of cancer. VIEWS: The views performed were: bilateral craniocaudal and bilateral mediolateral oblique. FILMS COMPARED: The present examination has been compared to prior imaging studies performed at [facility] on 07/20/2018, and at [facility] on 05/14/2014. This study has been [...] Reported by: HONEY GALLO MD Electonically Signed: [id number] Reported By: Deonna Gallo MD Electronically Signed Date/Time: 09/29/20 1123 Technologist: Dictated Date/Time: 09/29/20 Transcribed Date/Time: 09/29/20MAMMO Bilat Screen DDI Name: CHRISTIAN SHO LIDIA : 1955 [facility] [address] [facility] Phys: [place] [address] : 1955 Age: 64 SEX:F Exam Date: 09/29/20 Status: REG REF Acct: [id number] Loc: [facility] Pt Unit #: [id number] Report #: [id number] CC: Kristal Mohan MD MAMMOGRAPHY REPORT Order # Category/Exam [id number] MMO/MAMMO Bilat Screen DDI ([id number]): . Results 1 Bilateral MAMMO Bilat Screen DDI. CLINICAL HISTORY: Patient is 64 years old and is seen for screening.The patient has no family history of breast cancer. The patient has no personal history of cancer. VIEWS: The views performed were: bilateral craniocaudal and bilateral mediolateral oblique. FILMS COMPARED: The present examination has been compared to prior imaging studies performed at [facility] on 07/20/2018, and at [facility] on 05/14/2014. This study has been [...] Reported by: HONEY GALLO MD Electonically Signed: [id number] Reported By: Deonna Gallo MD Electronically Signed Date/Time: 09/29/20 1123 Technologist: Dictated Date/Time: 09/29/20 Transcribed Date/Time: 09/29/20XR Chest 1 View [facility] Pt Name: SHO GONZALES [facility] Phys: Annetta Green STEVEN [address] : 1955 Age: 62 SEX:F [phone] Exam Date: 10/22/18 Status: REG ER Acct: [id number] Loc: [facility] Pt Unit #: [id number] Report #: [id number] CC: [facility] REPORT Order # Category/Exam [id number] RAD/XR Chest 1 View Portable ([id number]): . Results Chest AP view INDICATION: Shortness [...] 1255 Technologist: KASANDRA Dictated Date/Time: 10/22/18 1254 TranscribedDate/Time: CT Abdomen Pelvis W [facility] Pt Name: SHO GONZALES [facility] Phys: [place] [address] : 1955 Age: 62 SEX:F [phone] Exam Date: 10/22/18 Status: REG ER Acct: [id number] Loc: [facility] Pt Unit #: [id number] Report #: [id number] CC: ED TEMP PROVIDER Annetta Green DO CAT SCAN REPORT Order # Category/Exam [id number] CT/CT Abdomen Pelvis W Con ([id number]): . Results CT OF THE ABDOMEN AND PELVIS WITH IV CONTRAST INDICATION: Right lower quadrant abdominal pain COMPARISON: None FINDINGS: ABDOMEN: Lung bases: Clear Liver: Fatty infiltration Gallbladder: Normal appearing. Pancreas: Normal. Adrenal glands: Normal. Spleen: Normal. Kidneys: Normal. Retroperitoneum of the upper abdomen: There are moderate vascular calcifications seen involving the visualized vasculature. No pathologically enlarged lymph nodes are evident. Pelvis: Small and large bowel: There is a normal appendix in the [...] Other chronic findings as above Reported By: Bryan Mann MD Electronically Signed Date/Time: 10/22/18 1443 Technologist: JOSELYN Dictated Date/Time: 10/22/18 1435 Transcribed Date/Time:[facility]: SHO GONZALES [address] [place] [address] Phys: [place] [address] : 1955 Age: 62 SEX:F [phone] Exam Date: 07/20/18 Status: REG REF Acct: [id number] Loc: [facility] Pt Unit #: [id number] Report #: [id number] CC: KRISTAL MOHAN MD MAMMOGRAPHY REPORT Order # Category/Exam [id number] MMO/MAMMO Bilat Screen DDI ([id number]): .Results Bilateral MAMMO Bilat Screen DDI. CLINICAL HISTORY: Patient is 62 years old and is seen forscreening. The patient has no family history of breast cancer. The patient has no personal history of cancer. VIEWS: The views performed were: bilateral craniocaudal and bilateral mediolateral oblique. FILMS COMPARED: The present examination has been compared to a prior imaging study performed at [facility] on 05/14/2014. This study has been interpreted with the assistance of computer-aided detection. MAMMOGRAM FINDINGS: There are scattered fibroglandular densities. There are no suspicious masses, suspicious calcifications, or new areas of architectural distortion. IMPRESSION: THERE IS NO MAMMOGRAPHIC EVIDENCE OF MALIGNANCY. A ROUTINE FOLLOW-UP MAMMOGRAMIN 1 YEAR IS RECOMMENDED. ACR BI-RADS Category 1 - Negative MAMMOGRAPHY NOTE: 1. A negative mammogram report should not delay a biopsy if a dominant of clinically suspicious mass is present. 2. Approximately 10% to 15% of breast cancers are not detected by mammography. 3. Adenosis and dense breastsmay obscure an underlying neoplasm. Reported By: William Berg MD Electronically Signed Date/Time: 07/26/18 0813 Technologist: [email or web address] Dictated Date/Time: 07/26/18 Transcribed Date/Time: 07/20/18
[2023-07-04 06:15] LABS: Absolute Lymphocytes (CBC) 2.6 K/uL (0.7-4.9); Absolute Monocytes 0.3 K/uL (0.1-1.3); Absolute Neutrophil 3.4 K/uL (1.8-8.0); Basophils % 0.5 % (0-1.3); Eosinophils % 0.4 % (0-4.4); Hematocrit 41.2 % (36.0-45.0); Hemoglobin 14.1 g/dL (12.0-15.0); Lymphocytes % 40.2 % (15.3-44.8); MCH 32.4 pg (27.0-35.0); MCHC 34.2 g/dL (32.0-36.0); MCV 94.8 fL (80-100); MPV 7.4 fL (7.6-11.3); Monocytes % 4.8 % (3.3-12.3); Neutrophils % 54.1 % (41.7-73.7); Nucleated Red Blood Cells % 0.2 % (0-0); Platelets 217 thou/uL (152-406); RBC Red Blood Cell Count 4.35 M/uL (3.86-4.86); Red Cell Distribution Width 12.7 % (12.1-15.2)
[2023-07-04 06:32] LABS: ALT/SGPT 39 U/L (13-56); AST/SGOT 27 U/L (15-37); Alkaline Phosphatase 76 U/L (45-117); Anion Gap 11.7 mEq/L (5.0-15.0); BUN Blood Urea Nitrogen 9 mg/dL (7-18); Bicarbonate 26 mEq/L (21-32); Bilirubin Total 0.5 mg/dL (0.2-1.0); Creatine Phosphokinase 39 U/L (26-192); Globulin 3.9 g/dL (2.3-3.5); Glomerular Filtration Rate 96 ml/min (=/>90); Glucose Level 210 mg/dL (74-106); Potassium 3.7 mEq/L (3.5-5.1); Protein, Total 7.9 g/dL (6.4-8.2); Sodium Level 135 mEq/L (136-145)
[2023-07-04 06:37] LABS: Troponin High Sensitivity < 3.0 pg/mL (<58.9)
--- NOTE | 2023-07-04 06:48 | ER ---
Nurse's Notes [facility] Name: Erica Marrero Age: 67 yrs Sex: Female : 1955 Arrival Date: 07/04/2023 Time: 05:05 Bed 14 Private MD: Diagnosis: Bipolar disorder, unspecified;Anxiety disorder, unspecified;Insomnia, unspecified Presentation: 07/03 05:22 Chief complaint: Patient states: Reports not being able to sleep x 2 months unresolved yb by meds prescribed by PCP, states 'the left side of my head feels like a knife is cutting with 10/10 pain.' Also states that right shoulder is painful with difficulty breathing through her mouth. Hx anxiety and depression, took meds yesterday. Coronavirus screen: Client denies travel out of the [place] in the last 14 days. At this time, the client does not indicate any symptoms associated with coronavirus-19. Ebola Screen: Patient denies travel to an Ebola-affected area in the 21 days before illness onset. No symptoms or risks identified at this time. Initial Sepsis Screen: Does the patient meet any 2 criteria? No. Patient's initial sepsis screen is negative. Initial Sepsis Screen: Does the patient have a suspected source of infection? No. Patient's initial sepsis screen is negative. Risk Assessment: Do you want to hurt yourself or someone else? Patient reports no desire to harm self or others. Onset of symptoms. Care prior to arrival: None. Activity prior to arrival: None. Transition of care: patient was not received from another setting of care. 05:22 Method Of Arrival: Ambulatory yb 05:22 Acuity: JAYLON 4 yb Triage Assessment: 05:28 General: Appears distressed, well groomed, Behavior is anxious, restless. Pain: yb Complains of pain in left frontal area, left side of forehead and left temporal area Pain at worst was 10 out of 10 on a pain scale. Quality of pain is described as stabbing, Pain began. Neuro: No deficits noted. Level of Consciousness is awake, alert, obeys commands. Cardiovascular: No deficits noted. Patient's skin is warm and dry. Respiratory: No deficits noted. Airway is patent. Musculoskeletal: Reports pain in right shoulder. Historical: - Allergies: :28 Dairy; yb : Iodine; yb 05:28 Eggs; yb 05:28 PORK/PORCINE PRODUCT DERIVATIVES; yb 05:28 rice; yb 05:28 SEAFOOD; yb - PMHx: 05:28 Bipolar disorder; COPD; Depression; Diabetes - NIDDM; High Cholesterol; Thyroid problem;yb - PSHx: 05:28 myomectomy; fibriod removal; oophorectomy; yb - Immunization history:: Adult Immunizations not up to date, Client reports receiving the 2nd dose of the Covid vaccine, Flu vaccine is not up to date. - Social history:: Smoking status: Patient denies any tobacco usage or history of. Patient uses Patient/guardian denies using alcohol, The patient lives with family. - Family history:: not pertinent. - Hospitalizations: : No recent hospitalization is reported. Screenin:38 [facility] ED Fall Risk Assessment (Adult) History of falling in the last 3 months, yb including since admission No falls in past 3 months (0 pts) Confusion or Disorientation No (0 pts) Intoxicated or Sedated No (0 pts) Impaired Gait No (0 pts) Mobility Assist Device Used No (0 pt) Altered Elimination No (0 pt) Score/Fall Risk Level 0 - 2 = Low Risk Oriented to surroundings, Maintained a safe environment, Assessed \T\ reinforced patient's understanding of fall precautions, Hourly rounding (assess needs \T\ fall precautionary measures) done. 05:40 Abuse screen: Denies threats or abuse. Nutritional screening: No deficits noted. yb Tuberculosis screening: No symptoms or risk factors identified. Assessment: 05:37 Reassessment: See triage assessment. yb 06:10 Reassessment: Patient and/or family updated on plan of care and expected duration. Pain tm6 level reassessed. Patient is alert, oriented x 3, equal unlabored respirations, skin warm/dry/pink. 06:22 Reassessment: Off the floor to CT. yb 06:29 Reassessment: Returned from CT. yb 06:59 Reassessment: Patient to be discharged, discussed with physician who agreed that yb patient should not drive home, states that she needs to call for transportation home. 07:05 Reassessment: Patient appears in no apparent distress at this time. Patient and/or db family updated on plan of care and expected duration. Pain level reassessed. Patient is alert, oriented x 3, equal unlabored respirations, skin warm/dry/pink. PT DC PENDING RIDE. General: Appears in no apparent distress. comfortable, Behavior is calm, cooperative. Neuro: Level of Consciousness is awake, alert, obeys commands, Oriented to person, place, time, situation. Respiratory: Airway is patent Respiratory effort is even, unlabored, Respiratory pattern is regular, symmetrical. 07:34 Reassessment: Patient appears in no apparent distress at this time. Patient states db feeling better. Patient states symptoms have improved. Vital Signs: 05:22 BP 172 / 91; Pulse 98; Resp 22; Temp 98.6(O); Pulse Ox 99% on R/A; yb 06:09 BP 139 / 99; Pulse 90; Resp 15; Pulse Ox 95% on R/A; tm6 06:52 BP 147 / 86; Pulse 90; Resp 18; Temp 97; Pulse Ox 96% on R/A; yb 07:18 BP 146 / 86; Pulse 93; Resp 18; Pulse Ox 97% on R/A; db ED Course: 05:11 Patient arrived in ED. gm2 05:13 Morris Wells MD is Attending Physician. rn 05:16 Kay Souza, LYSSA is Primary Nurse. yb 05:28 Triage completed. yb 05:28 Arm band placed on left wrist. yb 05:38 Patient has correct armband on for positive identification. Bed in low position. Call yb light in reach. Side rails up X 1. Provided Education on: Use of call light. 05:42 Client placed on continuous cardiac and pulse oximetry monitoring. NIBP monitoring yb applied. sap project manager on. Pulse ox on. NIBP on. Warm blanket given. Verbal reassurance given. 05:59 Inserted saline lock: 20 gauge in right antecubital area, using aseptic technique. yb Blood collected. 06:11 EKG done, by ED staff, reviewed by Morris Wells MD. tm6 06:16 XRAY Chest (1 view) In Process Unspecified. EDMS 06:33 CT Head Brain wo Cont In Process Unspecified. EDMS 07:34 No provider procedures requiring assistance completed. IV discontinued, intact, db bleeding controlled, No redness/swelling at site. Administered Medications: 06:15 Drug: NS 0.9% IV 1000 ml IV at 1000 ml once Route: IV; Rate: 1000 ml/hr; Site: right yb antecubital; 07:30 Follow up: Response: No adverse reaction; IV Status: Completed infusion; IV Intake: db 1000ml 06:15 Drug: Ativan IVP 0.5 mg IVP once Route: IVP; Site: right antecubital; yb 06:46 Follow up: Response: No adverse reaction; No change in condition; Anxiety unchanged yb Medication: 05:40 VIS not applicable for this client. yb Intake: 07:30 IV: 1000ml; Total: 1000ml. db Outcome: 06:47 Discharge ordered by MD. rn 07:34 Discharged to home via wheelchair, with family, db 07:34 Condition: stable 07:34 Discharge instructions given to patient, Instructed on discharge instructions, follow up and referral plans. Prescriptions given X 1, 07:36 Patient left the ED. db Signatures: Dispatcher [employer] EDMS Morris Wells MD MD rn Benton, Danielle RN RN Nasreen Nelson 2 Jabari Ramos RN RN Kay Rice RN RN yb Corrections: (The following items were deleted from the chart) 05:33 05:28 PSHx: myomectomy (Thyroid problem); yb yb 05:33 05:28 PSHx: ovary removal; yb yb 07:35 07:05 Reassessment: Patient appears in no apparent distress at this time. Patient db and/or family updated on plan of care and expected duration. Pain level reassessed. Patient is alert, oriented x 3, equal unlabored respirations, skin warm/dry/pink. db
--- NOTE | 2023-07-04 06:48 | EDPHYS ---
Physician Documentation [facility] Name: Erica Marrero Age: 67 yrs Sex: Female : 1955 Arrival Date: 07/04/2023 Time: 05:05 Bed 14 Private MD: ED Physician Morris Wells HPI: 07/03 06:01 This 67 yrs old Female presents to ER via Ambulatory with complaints of shakes, rn claims to not have slept in 2 months, Shoulder Pain. 06:01 Patient reports has not been able to sleep in 2 months, is tired of it so came in for rn evaluation. Patient states feels shaky with tremor, anxious, not able to sleep. Denies any new medication. Has been on Prozac for years as well as trazodone. Compliant with thyroid medication. No recent illness. No fever. No chest pain. Reports pain to both arms without injury. Patient reports lays in bed unable to sleep and then has shortness of breath.. Historical: - Allergies: 05:28 Dairy; yb 05:28 Iodine; yb 05:28 Eggs; yb 05:28 PORK/PORCINE PRODUCT DERIVATIVES; yb 05:28 rice; yb 05:28 SEAFOOD; yb - PMHx: 05:28 Bipolar disorder; COPD; Depression; Diabetes - NIDDM; High Cholesterol; Thyroid problem;yb - PSHx: 05:28 myomectomy; fibriod removal; oophorectomy; yb - Immunization history:: Adult Immunizations not up to date, Client reports receiving the 2nd dose of the Covid vaccine, Flu vaccine is not up to date. - Social history:: Smoking status: Patient denies any tobacco usage or history of. Patient uses Patient/guardian denies using alcohol, The patient lives with family. - Family history:: not pertinent. - Hospitalizations: : No recent hospitalization is reported. ROS: 06:02 Constitutional: Negative for fever, chills, and weight loss, Neck: Negative for injury, rn pain, and swelling, Cardiovascular: Negative for chest pain, palpitations, and edema, Respiratory: Negative for cough, wheezing, and pleuritic chest pain, Abdomen/GI: Negative for abdominal pain, nausea, vomiting, diarrhea, and constipation, MS/Extremity: Negative for injury and deformity, Skin: Negative for injury, rash, and discoloration, Neuro: Negative for numbness, tingling, and seizure, Exam: 06:02 Constitutional: This is a well developed, well nourished patient who is awake, alert, rn anxious and crying Head/Face: Normocephalic, atraumatic. Eyes: No nystagmus ENT: Dry mucous membranes, no stridor Cardiovascular: Regular rate and rhythm. No pulse deficits. Respiratory: Mild tachypnea. Speaking full sentences. Abdomen/GI: Soft, non-tender MS/ Extremity: Pulses equal, no cyanosis. Neuro: Awake and alert, GCS 15, oriented to person, place, time, and situation. Cranial nerves II-XII grossly intact. Motor strength 4/5 in all extremities. Sensory grossly intact. Course tremor present bilateral upper extremities Vital Signs: 05:22 BP 172 / 91; Pulse 98; Resp 22; Temp 98.6(O); Pulse Ox 99% on R/A; yb 06:09 BP 139 / 99; Pulse 90; Resp 15; Pulse Ox 95% on R/A; tm6 06:52 BP 147 / 86; Pulse 90; Resp 18; Temp 97; Pulse Ox 96% on R/A; yb 07:18 BP 146 / 86; Pulse 93; Resp 18; Pulse Ox 97% on R/A; db MDM: 05:13 Patient medically screened. rn 06:46 Differential Diagnosis Bipolar disorder, brian, depression, insomnia, electrolyte rn disorder, thyroid dysfunction. Data reviewed: vital signs, nurses notes, lab test result(s), EKG, radiologic studies, CT scan, plain films, and as a result, I will discharge patient. Counseling: I had a detailed discussion with the patient and/or guardian regarding the historical points, exam findings, and any diagnostic results supporting the discharge/admit diagnosis, lab results, radiology results, the need for outpatient follow up, to return to the emergency department if symptoms worsen or persist or if there are any questions or concerns that arise at home. Response to treatment: the patient's symptoms have mildly improved after treatment, and as a result, I will discharge patient. Special discussion: I discussed with the patient/guardian in detail that at this point there is no indication for admission to the hospital. It is understood, however, that if the symptoms persist or worsen the patient needs to return immediately for re-evaluation. Based on the history and exam findings, there is no indication for further emergent testing or inpatient evaluation. I discussed with the patient/guardian the need to see the psychiatrist for further evaluation of the symptoms. ED course: No acute findings and workup today. CT head negative. Labs unremarkable. Patient felt better after Ativan. Will discharge with a few Valium, low-dose, urged to follow-up with her psychiatrist for further medication management and titration.. 07/03 05:47 Order name: CBC with Diff; Complete Time: 06:21 rn 07/03 05:47 Order name: CMP; Complete Time: 06:40 rn 07/03 05:47 Order name: TSH; Complete Time: 06:40 rn 07/03 05:47 Order name: T4 Free; Complete Time: 06:40 rn 07/03 05:47 Order name: CK; Complete Time: 06:40 rn 07/03 05:47 Order name: Troponin High Sensitivity; Complete Time: 06:40 rn 07/03 05:48 Order name: CT Head Brain wo Cont rn 07/03 06:02 Order name: XRAY Chest (1 view) rn 07/03 05:47 Order name: EKG; Complete Time: 05:48 rn 07/03 05:47 Order name: IV Start; Complete Time: 06:00 rn 07/03 05:47 Order name: EKG - Nurse/Tech; Complete Time: 06:11 rn Administered Medications: 06:15 Drug: NS 0.9% IV 1000 ml IV at 1000 ml once Route: IV; Rate: 1000 ml/hr; Site: right antecubital; 07:30 Follow up: Response: No adverse reaction; IV Status: Completed infusion; IV Intake: db 1000ml 06:15 Drug: Ativan IVP 0.5 mg IVP once Route: IVP; Site: right antecubital; 06:46 Follow up: Response: No adverse reaction; No change in condition; Anxiety unchanged yb Disposition Summary: 07/04/23 06:47 Discharge Ordered Notes: Location: Home rn Problem: an ongoing problem rn Symptoms: have improved rn Condition: Stable rn Diagnosis - Bipolar disorder, unspecified rn - Anxiety disorder, unspecified rn - Insomnia, unspecified rn Followup: rn - With: Private Physician - When: As needed - Reason: Recheck today's complaints, Re-evaluation by your physician Discharge Instructions: - Discharge Summary Sheet rn - Insomnia rn - Managing Bipolar Disorder rn Forms: - Medication Reconciliation Form rn - Thank You Letter rn - Antibiotic dehorner - Prescription Opioid Use rn - Patient Portal Instructions rn - Leadership Thank You Letter rn Prescriptions: - Valium 2 mg Oral tablet - take 1 tablet ORAL route once daily As needed; 5 tablet; Refills: 0, Product rn Selection Permitted Signatures: Dispatcher [employer] EDMorris Lambert MD MD rn Brown, Yolanda, RN RN yb Benton, Danielle RN db Corrections: (The following items were deleted from the chart) 05:33 05:28 PSHx: myomectomy (Thyroid problem); [facility] 05:33 05:28 PSHx: ovary removal; [facility]
[2023-07-04 07:54] VITALS: BP 146/86; TEMP 97; O2SAT 97
--- NOTE | 2023-07-04 14:14 | EKG ---
Test Date: 2023-07-04 Test Time: 05:07:09 Guest Services: ONUR MEASUREMENT RESULTS: Intervals: Rate: 89 UT: 142 QRSD: 78 QT: 384 QTc: 467 [place]: P: 74 UT: 142 QRS: -36 T: 86 INTERPRETIVE STATEMENTS: Normal sinus rhythm Left axis deviation Nonspecific T wave abnormality Abnormal ECG Compared to ECG 05/15/2023 08:49:04 Left-axis deviation now present T-wave abnormality now present Electronically Signed On 07-04-23 14:13:15 CDT by Sahil Ma
--- NOTE | 2023-07-04 14:25 | RAD REPORT ---
EXAM DESCRIPTION: CT of the head without contrast CLINICAL HISTORY: HEADACHE COMPARISON: None available TECHNIQUE: Axial CT of the head obtained from the skull apex to the skull base without contrast. Thi s exam was performed according to our departmental dose-optimization program, which includes automate d exposure control, adjustment of the mA and/or kV according to patient size and/or use of iterative reconstruction technique. FINDINGS: No acute intracranial hemorrhage identified. No mass, mass effect, shift of the midline, a bnormal extra-axial fluid collection or CT evidence of acute ischemic change identified. The ventricu lar system and sulcal spaces are mildly enlarged compatible with mild cerebral atrophy. Scattered a reas of hypodensity throughout the supratentorial white matter are nonspecific and may be related to chronic small vessel ischemic change. Flattening of the diaphragm of sella. The visualized paranasal sinuses and the mastoids are clear. No skull fracture identified. Visualiz ed orbits and globes are unremarkable. Atherosclerotic calcification of the intracranial internal car otid arteries. IMPRESSION: 1. No acute intracranial abnormality by CT criteria. Electronically signed by: Elan Tidwell DO 07/04/2023 06:41 AM CDT M Due to temporary technical issues with the PACS/Fluency reporting system, reports are being signed by the in house radiologist without review as a courtesy to ensure prompt reporting. The interpreting r adiologist is fully responsible for the content of the report.
--- NOTE | 2023-07-04 14:26 | RAD REPORT ---
EXAM DESCRIPTION: XR Chest, 1 View CLINICAL HISTORY: The patient is 67 years old and is Female; DYSPNEA TECHNIQUE: Frontal view of the chest. COMPARISON: No relevant prior studies available. FINDINGS: Lungs: Mildly prominent interstitial markings. No consolidation. Pleural space: Unremarkable. No pneumothorax. Heart: Unremarkable. Mediastinum: Unremarkable. Normal mediastinal contour. Bones/joints: No acute findings. IMPRESSION: Mildly prominent interstitial markings. No consolidation. Electronically signed by: Wang Wolff MD 07/04/2023 06:21 AM CDT Due to temporary technical issues with the PACS/Fluency reporting system, reports are being signed by the in house radiologist without review as a courtesy to ensure prompt reporting. The interpreting r adiologist is fully responsible for the content of the report.
== END ==
LOC: ER 05:05
DX: G47.00 Insomnia, unspecified (principal); F31.9 Bipolar disorder, unspecified; F41.9 Anxiety disorder, unspecified; Z91.011 Allergy to milk products; Z91.012 Allergy to eggs; Z91.013 Allergy to seafood; Z91.014 Allergy to mammalian meats; Z91.018 Allergy to other foods; Z91.048 Other nonmedicinal substance allergy status
CPT/HCPCS: 93005; 85025; 36415; 82550; 84443; 84484; 84439; 80053; 70450; 71045; J7030; 96361; 96374; 99285